=== PATIENT | female | born 1960 | race Caucasian/White ===

== ENCOUNTER 2017-12-16 05:07 | Inpatient (IN) ==
[2017-12-16] MEDS ORDERED: Levofloxacin 750 MG/150 ML 750 MG/150 ML BAG IVPB ONE (05:44)
--- NOTE | 2017-12-16 05:51 | Emergency Department Note ---
Disposition Clinical Impression: Dehydration, Elevated INR Altered mental status, unspecified Qualifiers: Altered mental status type: unspecified Qualified Code(s): R41.82 - Altered mental status, unspecified Disposition: Still a Patient Condition: Fair Referrals: Kerry Farris MD [Primary Care Provider] - Forms: ED Satisfaction Letter Time of Disposition: 06:51 Altered Mental Status HPI - General Chief Complaint: ED Nausea/Vomiting/Diarrhea Stated Complaint: dehydration/uti Time Seen by Provider: 12/16/17 05:30 Source: patient, family Mode of arrival: private vehicle Limitations: no limitations Nursing Notes Reviewed: Yes Vital Signs Reviewed: Yes - History of Present Illness MD complaint: altered mental status Onset (ago): day(s) (Starting getting sick 4 days ago with vomiting but altered mental status is been going on today.) Timing confirmed by: spouse Pain Severity: none Consistency of Symptoms: waxing and waning Context: other (Recently diagnosed with UTI and started on antibiotics yesterday ) Associated symptoms: Reports: chills, loss of appetite, nausea/vomiting. Denies : cough, fever - Related Data Home Medications Medication Instructions Recorded Confirmed Levothyroxine [Synthroid] 100 mcg PO 02/27/15 02/27/15 Lovenox *PHARMACY WT BASED* 02/27/15 02/27/15 Triamterene/HCTZ 37.5/25mg 1 each PO DAILY 02/27/15 02/27/15 [Dyazide] Warfarin perPT [Coumadin perPT] 02/27/15 02/27/15 Previous Rx's Medication Instructions Recorded Cephalexin [Keflex] 500 mg PO BID 7 Days #14 capsule 11/09/17 Allergies Allergy/AdvReac Type Severity Reaction Status Date / Time divalproex sodium AdvReac See Verified 02/27/15 07:30 [From Depakote] Comments phenytoin [From Dilantin] AdvReac Hives Verified 02/27/15 07:30 All systems ED: reviewed and negative except as stated. Constitutional: Reports: chills. Denies: fever ENT ED: Denies: ear pain, throat pain, congestion Cardiovascular: Denies: chest pain, palpitations Respiratory: Denies: cough, dyspnea, wheezes Gastrointestinal: Reports: nausea, vomiting. Denies: abdominal pain, diarrhea Integumentary: Denies: rash Neurological: Reports: confusion Past Medical History - Past Medical History Attestation: Yes The following information was validated with the patient. Source: patient, old records reviewed, obtained from family, nursing notes reviewed Medical history: Reports: dementia, hyperlipidemia, hypertension, renal disease , seizures, thyroid disease, TIA Surgical history: Reports: , other Psychiatric history: Reports: anxiety, depression - Social History Smoking Status: Never smoker Alcohol use: Reports: none Drug use: Reports: none Physical Exam - General Limitations: no limitations General appearance: alert - Head Head exam: atraumatic, normocephalic - Eye Eye exam: Present: normal appearance, PERRL, EOMI. Absent: scleral icterus, conjunctival injection - ENT ENT exam: mucous membranes dry, normal external ear exam - Neck Neck exam: Present: normal inspection, full ROM. Absent: meningismus, lymphadenopathy - Chest Chest inspection: Present: normal inspection, symmetric chest wall rise. Absent : tenderness - Respiratory Respiratory exam: Present: normal lung sounds bilaterally. Absent: respiratory distress, wheezes - Cardiovascular Cardiovascular exam: Present: normal rhythm, tachycardia, normal heart sounds - Abdominal Exam Abdominal exam: Present: soft, tenderness, normal bowel sounds Abdominal tenderness: Present: suprapubic, moderate - Extremities Exam Extremities exam: Present: normal inspection. Absent: pedal edema - Neurological Exam Neurological exam: Present: alert. Absent: motor sensory deficit - Skin Skin exam: Present: warm, dry. Absent: rash Course Course Narrative: Patient has been sick for about 4 days and during the course of the last 24 hours she said confusion. Recent diagnosis of UTI and started antibiotics yesterday. Clinically she is confused and she has very dry mucous membranes. She is tender suprapubically in the midline. This is consistent with UTI. We will check the labs to confirm as well as look for other problems related to this confusion. I am going to go ahead and start antibiotics through the IV. I initiated a sepsis workup. Disposition will be based on diagnostic results and reevaluation. - Reevaluation(s) Reevaluation #1: Labs look okay except for elevated BUN/creatinine consistent with dehydration. The urinalysis was essentially negative for infection. However the patient is vomiting and is dehydrated and has lower abdominal pain so I will send her over for CT scan of the abdomen. I am still waiting for the radiologist results on the head CT although I do not see any gross abnormalities. At this point is the end of my shift. I will be turning the case over to the day physician, Dr. Arechiga, for final disposition after diagnostic studies all come back. Time: 06:50 Vital Signs Temperature 98.8 F 12/16/17 05:08 Pulse Rate 102 12/16/17 05:08 Respiratory Rate 16 12/16/17 05:08 Blood Pressure 113/70 12/16/17 05:08 O2 Sat by Pulse Oximetry 93 12/16/17 05:08 Temperature 98.8 F 12/16/17 05:20 Pulse Rate 103 12/16/17 06:38 Respiratory Rate 16 12/16/17 05:20 Blood Pressure 113/71 12/16/17 06:38 O2 Sat by Pulse Oximetry 96 12/16/17 06:38 Oxygen Delivery Oxygen Delivery Room Air Altered Mental Status - Medical Records Medical records reviewed: Yes I reviewed the patient's medical records. - Lab Data Lab results reviewed: Yes I reviewed the patient's lab results. Result diagrams: 12/16/17 05:27 12/16/17 05:27 Lab Results 12/16/17 12/16/17 12/16/17 Range/Units 05:27 05:27 05:27 WBC 8.4 (4.3-11.1) K/mcL RBC 4.04 (3.82-4.97) M/mcL Hgb 13.0 (11.5-15.4) g/dL Hct 37.9 (35.3-44.9) % MCV 93.8 (83.0-100.0) fL MCH 32.2 (28.0-33.3) pg MCHC 34.3 (31.6-35.5) g/dL RDW 13.7 (11.5-14.5) % Plt Count 63 L (140-400) K/mcL MPV 11.0 (9.4-12.4) fL Seg Neutrophils % 74.0 % Band Neutrophils % 10.0 H (0-4) % Lymphocytes % 14.0 % Metamyelocytes % 2.0 H (0) % Neutrophils # 7.1 (1.6-8.9) K/mcL Lymphocytes # 1.2 (0.6-4.6) K/mcL Platelet Estimate Decreased L (Normal) Immature Plt Fraction 4.9 (1.1-6.1) % PT 68.1 H* (9.4-12.1) Seconds INR 6.0 H* APTT 66.6 H (26.0-36.0) Seconds Sample Site ABG pH (7.32-7.45) pH Units ABG pCO2 (35-45) mmHg ABG pO2 (85-104) mmHg ABG HCO3 (21-27) mEq/L ABG Total CO2 (20-26) mEq/L ABG O2 Saturation (95-98) % ABG Base Excess (-2 to 3) mEq/L Mason Test Inspired O2 (1-15=lpm [id number]=%) Sodium 131 L (136-145) mEq/L Potassium 3.3 L (3.5-5.1) mEq/L Chloride 99 (98-107) mEq/L Carbon Dioxide 18 L (23-29) mEq/L BUN 33 H (6-20) mg/dL Creatinine 1.99 H (0.60-1.20) mg/dL Est GFR ( Amer) 31 L (> 60) Est GFR (Non-Af Amer) 26 L (> 60) BUN/Creatinine Ratio 17 (6-26) Glucose 115 H (70-105) mg/dL Calculated Osmolality 280 (280-300) Lactic Acid (0.5-2.2) mmol/L Calcium 9.2 (8.6-10.3) mg/dL Phosphorus 1.4 L (2.7-4.5) mg/dL Magnesium 2.0 (1.6-2.6) mg/dL Total Bilirubin 0.8 (0.3-1.0) mg/dL Direct Bilirubin 0.4 H (0.0-0.2) mg/dL Indirect Bilirubin 0.4 (0.0-1.2) mg/dL AST 16 (13-39) Units/L ALT 8 (7-52) Units/L Alkaline Phosphatase 111 H (34-104) Units/L Troponin I < 0.03 (< 0.04) ng/mL Serum Total Protein 6.2 L (6.4-8.9) g/dL Albumin 3.2 L (3.5-5.7) g/dL Globulin 3.0 (2.4-3.5) g/dL Albumin/Globulin Ratio 1.1 (1.1-2.2) Urine Color (Yellow) Urine Clarity (Clear) Urine pH (5.0-8.0) pH Units Ur Specific [employer] (1.010-1.025) Urine Protein (Neg-Trace) mg/dL Urine Glucose (UA) (Normal) mg/dL Urine Ketones (Negative) mg/dL Urine Blood (Negative) Urine Nitrite (Negative) Urine Bilirubin (Negative) Urine Urobilinogen (Normal) mg/dL Ur Leukocyte Esterase (Negative) Urine Microscopic RBC (0-3) per hpf Urine Microscopic WBC (0-3) per hpf Ur Squamous Epith Cells (None-Few) per lpf Urine Bacteria (None-Few) per hpf Hyaline Casts (None-Few) per lpf Urine Yeast (None Seen) per hpf Ur Culture Indicated? (NO) 12/16/17 12/16/17 12/16/17 Range/Units 05:27 05:55 06:15 WBC (4.3-11.1) K/mcL RBC (3.82-4.97) M/mcL Hgb (11.5-15.4) g/dL Hct (35.3-44.9) % MCV (83.0-100.0) fL MCH (28.0-33.3) pg MCHC (31.6-35.5) g/dL RDW (11.5-14.5) % Plt Count (140-400) K/mcL MPV (9.4-12.4) fL Seg Neutrophils % % Band Neutrophils % (0-4) % Lymphocytes % % Metamyelocytes % (0) % Neutrophils # (1.6-8.9) K/mcL Lymphocytes # (0.6-4.6) K/mcL Platelet Estimate (Normal) Immature Plt Fraction (1.1-6.1) % PT (9.4-12.1) Seconds INR APTT (26.0-36.0) Seconds Sample Site R Radial ABG pH 7.47 H (7.32-7.45) pH Units ABG pCO2 24 L (35-45) mmHg ABG pO2 81 L (85-104) mmHg ABG HCO3 18 L (21-27) mEq/L ABG Total CO2 18 L (20-26) mEq/L ABG O2 Saturation 97 (95-98) % ABG Base Excess -5 L (-2 to 3) mEq/L Mason Test Positive Inspired O2 21.0 (1-15=lpm [id number]=%) Sodium (136-145) mEq/L Potassium (3.5-5.1) mEq/L Chloride (98-107) mEq/L Carbon Dioxide (23-29) mEq/L BUN (6-20) mg/dL Creatinine (0.60-1.20) mg/dL Est GFR ( Amer) (> 60) Est GFR (Non-Af Amer) (> 60) BUN/Creatinine Ratio (6-26) Glucose (70-105) mg/dL Calculated Osmolality (280-300) Lactic Acid 1.4 (0.5-2.2) mmol/L Calcium (8.6-10.3) mg/dL Phosphorus (2.7-4.5) mg/dL Magnesium (1.6-2.6) mg/dL Total Bilirubin (0.3-1.0) mg/dL Direct Bilirubin (0.0-0.2) mg/dL Indirect Bilirubin (0.0-1.2) mg/dL AST (13-39) Units/L ALT (7-52) Units/L Alkaline Phosphatase (34-104) Units/L Troponin I (< 0.04) ng/mL Serum Total Protein (6.4-8.9) g/dL Albumin (3.5-5.7) g/dL Globulin (2.4-3.5) g/dL Albumin/Globulin Ratio (1.1-2.2) Urine Color Yellow (Yellow) Urine Clarity Cloudy A (Clear) Urine pH 5.5 (5.0-8.0) pH Units Ur Specific [employer] 1.017 (1.010-1.025) Urine Protein Trace (Neg-Trace) mg/dL Urine Glucose (UA) Normal (Normal) mg/dL Urine Ketones Negative (Negative) mg/dL Urine Blood Small H (Negative) Urine Nitrite Negative (Negative) Urine Bilirubin Negative (Negative) Urine Urobilinogen Normal (Normal) mg/dL Ur Leukocyte Esterase Small H (Negative) Urine Microscopic RBC 0-3 (0-3) per hpf Urine Microscopic WBC 3-5 H (0-3) per hpf Ur Squamous Epith Cells Many H (None-Few) per lpf Urine Bacteria Few (None-Few) per hpf Hyaline Casts None Seen (None-Few) per lpf Urine Yeast Many H (None Seen) per hpf Ur Culture Indicated? NO. A (NO) - Radiology Data Radiology results reviewed: Yes I reviewed the patient's radiology results. - EKG Data EKG attestation: Yes I reviewed and interpreted this EKG. EKG results narrative: Twelve-lead EKG performed at 6 AM shows sinus rhythm at a rate of 98. Left axis deviation. Reasonable R wave progression across precordium. No acute ischemic changes. Intervals are within normal limits. TPA Checklist - LKW: 3-4.5 hrs Add. Warnings/Precautions Patient/family understanding: The patient/family members have been counseled and understood the risk, benefit , and alternatives of treatment.
[2017-12-16 05:56] LABS: Mean Corpuscular Volume 93.8 fL (83.0-100.0)
[2017-12-16 05:58] LABS: Hematocrit 37.9 % (35.3-44.9); Immature Platelets 4.9 % (1.1-6.1); Mean Corpuscular HGB Conc 34.3 g/dL (31.6-35.5); Mean Corpuscular Hemoglobin 32.2 pg (28.0-33.3); Platelet Count 63 K/mcL (140-400); Red Blood Count 4.04 M/mcL (3.82-4.97); Red Cell Distribution Width 13.7 % (11.5-14.5)
[2017-12-16 06:00] LABS: ABG Base Excess -5 mEq/L (-2 to 3); ABG HCO3 18 mEq/L (21-27); ABG Oxygen Saturation 97 % (95-98); ABG PCO2 24 mmHg (35-45); ABG PH 7.47 pH Units (7.32-7.45); ABG PO2 81 mmHg (85-104); ABG TCO2 18 mEq/L (20-26)
[2017-12-16 06:06] LABS: Activated Partial Thrombo Time 66.6 Seconds (26.0-36.0)
[2017-12-16 06:08] LABS: Alanine Aminotransferase 8 Units/L (7-52); Albumin 3.2 g/dL (3.5-5.7); Albumin/Globulin Ratio 1.1 (1.1-2.2); Alkaline Phosphatase 111 Units/L (34-104); Aspartate Amino Transferase 16 Units/L (13-39); BUN/Creatinine Ratio 17 (6-26); Bilirubin,Direct 0.4 mg/dL (0.0-0.2); Bilirubin,Indirect 0.4 mg/dL (0.0-1.2); Bilirubin,Total 0.8 mg/dL (0.3-1.0); Blood Urea Nitrogen 33 mg/dL (6-20); Calcium 9.2 mg/dL (8.6-10.3); Carbon Dioxide 18 mEq/L (23-29); Chloride 99 mEq/L (98-107); Glucose 115 mg/dL (70-105); Osmolality,Calculated 280 (280-300); Phosphorous 1.4 mg/dL (2.7-4.5); Potassium 3.3 mEq/L (3.5-5.1); Sodium 131 mEq/L (136-145); Total Protein 6.2 g/dL (6.4-8.9); Troponin I < 0.03 ng/mL (< 0.04); eGFR For African Americans 31 (> 60); eGFR For Non-African Americans 26 (> 60)
[2017-12-16 06:09] LABS: Prothrombin Time 68.1 Seconds (9.4-12.1)
[2017-12-16] MEDS: 0.9 % Sodium Chloride 1,000 ML IVC SCH ×2 (06:11→08:46)
[2017-12-16 06:22] LABS: Lymphocytes # 1.2 K/mcL (0.6-4.6); Neutrophils # 7.1 K/mcL (1.6-8.9); Platelet Estimate Decreased (Normal)
[2017-12-16 06:29] LABS: Bilirubin,Urine Negative (Negative); Blood,Urine Small (Negative); Clarity,Urine Cloudy (Clear); Color,Urine Yellow (Yellow); Glucose,Urine (UA) Normal (Normal); Ketones,Urine Negative (Negative); Leukocyte Esterase,Urine Small (Negative); Nitrite,Urine Negative (Negative); PH,Urine 5.5 pH Units (5.0-8.0); Protein,Urine Trace mg/dL (Neg-Trace); Specific Gravity,Urine 1.017 (1.010-1.025); Urobilinogen,Urine Normal (Normal)
[2017-12-16 06:31] LABS: Hyaline Casts,Urine None Seen per lpf (None-Few); RBC,Urine 0-3 per hpf (0-3); Squamous Epithelial Cell,Urine Many per lpf (None-Few)
[2017-12-16 06:47] LABS: Bacteria,Urine Few per hpf (None-Few); Yeast,Urine Many per hpf (None Seen)
--- NOTE | 2017-12-16 07:14 | Emergency Department Note ---
Disposition Clinical Impression: Dehydration, Elevated INR, Thrombocytopenia, Acute kidney injury, Supratherapeutic INR, Left ureteral calculus Altered mental status, unspecified Qualifiers: Altered mental status type: unspecified Qualified Code(s): R41.82 - Altered mental status, unspecified Disposition: Admitted As Inpatient Condition: Fair Time of Disposition: 08:26 General Adult HPI - General Chief complaint: ED Nausea/Vomiting/Diarrhea Stated complaint: dehydration/uti Time Seen by Provider: 12/16/17 05:30 Source: patient, family Mode of arrival: private vehicle Limitations: altered mental status Nursing Notes Reviewed: Yes Vital Signs Reviewed: Yes - History of Present Illness HPI Narrative: Patient was signed out by nighttime physician Dr. Birmingham pending CT abdomen and pelvis and final disposition. Please see his note for further details. Pain Scale: 7 - Related Data Home Medications Medication Instructions Recorded Confirmed Atorvastatin Calcium [Lipitor] 20 mg PO HS 12/16/17 12/16/17 BuPROPion SR (12 HR) [Wellbutrin 150 mg PO 1200 12/16/17 12/16/17 SR] BuPROPion SR (12 HR) [Wellbutrin 300 mg PO QAM 12/16/17 12/16/17 SR] Calcium Carbonate [Calcium] 500 mg PO DAILY 12/16/17 12/16/17 Ciprofloxacin HCl [Cipro] 500 mg PO BID 12/16/17 12/16/17 FLUoxetine HCl [Fluoxetine HCl] 40 mg PO DAILY 12/16/17 12/16/17 Levothyroxine [Synthroid] 100 mcg PO 0630 12/16/17 12/16/17 Ondansetron ODT [Zofran ODT] 4 mg PO DAILY PRN 12/16/17 12/16/17 Potassium Chloride 20 meq PO BID 12/16/17 12/16/17 Quetiapine Fumarate [Seroquel] 50 mg PO HS 12/16/17 12/16/17 Spironolactone [Aldactone] 50 mg PO BID 12/16/17 12/16/17 Topiramate [Topamax] 50 mg PO BID 12/16/17 12/16/17 Trazodone HCl 300 mg PO HS 12/16/17 12/16/17 Warfarin Sodium [Warfarin Sodium] 2.5 mg PO DAILY 12/16/17 12/16/17 raNITIdine HCl [Ranitidine HCl] 300 mg PO DAILY 12/16/17 12/16/17 Allergies Allergy/AdvReac Type Severity Reaction Status Date / Time divalproex sodium AdvReac See Verified 12/16/17 07:46 [From Depakote] Comments phenytoin [From Dilantin] AdvReac Hives Verified 12/16/17 07:46 Constitutional: Reports: chills. Denies: fever ENT ED: Denies: ear pain, throat pain, congestion Cardiovascular: Denies: chest pain, palpitations Respiratory: Denies: cough, dyspnea, wheezes Gastrointestinal: Reports: nausea, vomiting. Denies: abdominal pain, diarrhea Integumentary: Denies: rash Neurological: Reports: confusion Past Medical History - Past Medical History Medical history: Reports: dementia, hyperlipidemia, hypertension, renal disease , seizures, thyroid disease, TIA Surgical history: Reports: , other Psychiatric history: Reports: anxiety, depression - Social History Smoking Status: Never smoker Alcohol use: Reports: none Drug use: Reports: none Physical Exam - General Limitations: no limitations General appearance: alert Course Course Narrative: Patient was signed out by nighttime physician Dr. Birmingham pending CT abdomen and pelvis and final disposition. Please see his note for further details. Andree is a 57-year-old female history of antiphospholipid, dementia, prior TIA , and CKD stage 3 follows with Isa who presents emergency department with concern for dehydration urinary tract infection and confusion. The assists with the history. Reports over the past days patient has been nauseated and sick. She is have similar presentation a month ago diagnosed with urinary tract infection. She has been unable to keep her Coumadin or take any other medication due to her nausea vomiting. No fevers. Patient saw her primary care physician Dr. Dill 2 days ago on Thursday and was diagnosed with urinary tract infection and placed on Cipro. Last night roughly 2100 reports patient had difficulty with speech and appeared confused. She has only taken 2 doses of her ciprofloxacin. She has not taken this medication before. On my exam patient follow simple commands and initially answered some questions but currently is shaking head and no. She appears to have a tick and continues a purse her lips which he has been states his new. On neurologic exam she has good strength in all for extremities. Appears neurologically intact. Supple neck without nuchal rigidity or meningeal signs. Lungs are clear bilaterally. Heart is regular rate and rhythm. Her abdomen is soft but appears mildly tender. She does wince on exam. Review of her labs shows no leukocytosis. Hemoglobin stable. Urinalysis does not appear consistent with infection at this time. Patient was given a dose of IV Levaquin here. Her creatinine is significantly elevated 1.99 well above her baseline. BUN is elevated as well as electrolyte abnormalities consistent with dehydration. She is currently getting IV fluid hydration. Her INR is also elevated 6.0. Lactate is 1.4. She remains hemodynamically stable here but slightly tachycardic 100. Patient and deny any bloody stool or blacked tarry stool. Currently CT of the abdomen and pelvis is pending. Chest x-ray and CT of the head is unremarkable. Patient will likely require admission for altered mental status. Will include a urine drug screen. - Reevaluation(s) Reevaluation #1: Heart rate continues to improve with IV fluid hydration. CT of the abdomen and pelvis shows left hydronephrosis with 5 mm left distal ureteral stone. This could likely explain her acute kidney injury likely post obstructive. Given her acute on chronic thrombocytopenia she was evaluate for any other abnormalities such as HUS/ITP/TTP, no petechieal lesions seen on buttocks, trunk , or extremities. Patient will be admitted for multiple diagnoses including altered mental status, acute kidney injury, dehydration, kidney stone, left hydronephrosis, acute thrombocytopenia and supratherapeutic INR. Time: 08:28 - Consultations Consultation #1: Spoke with on-call neurologist Jose Antonio Main this is likely not TIA or CVA without isolated difficulty with speech. He does recommend MRI. He is aware the patient will be admitted and MRI can be performed as an inpatient. She is currently already anticoagulated. No further interventions Time: 07:36 Consultation #2: Spoke with on-call hospitalist eduard Naqvi to admit for supra INR, dehydration, NILSA, left kidney stone, AMS. No further orders at this time. Recommend MRI as inpatient Time: 08:26 Consultation #3: Consulted urology on-call Dr. 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 Patient continues to have some discomfort mostly on the left flank and abdomen likely from the stone. Will be consulted on the floor. Time: 08:57 Vital Signs Temperature 98.8 F 12/16/17 05:08 Pulse Rate 102 12/16/17 05:08 Respiratory Rate 16 12/16/17 05:08 Blood Pressure 113/70 12/16/17 05:08 O2 Sat by Pulse Oximetry 93 12/16/17 05:08 Temperature 98.8 F 12/16/17 05:20 Pulse Rate 92 12/16/17 08:42 Respiratory Rate 18 12/16/17 08:42 Blood Pressure 118/81 12/16/17 08:42 O2 Sat by Pulse Oximetry 99 12/16/17 08:42 Oxygen Delivery Oxygen Delivery Room Air Medical Decision Making - MDM Narrative Medical decision making narrative: Patient was discussed with my attending physician who agrees with ED management and final disposition. They independently evaluated the patient. Please refer to their attestation to this encounter for additional information. This note was generated by [employer] voice recognition software and as a result grammatical or spelling errors may occur using this program. - Medical Records Medical records reviewed: Yes I reviewed the patient's medical records. - Lab Data Lab results reviewed: Yes I reviewed the patient's lab results. Result diagrams: 12/16/17 05:27 12/16/17 05:27 Lab Results 12/16/17 12/16/17 12/16/17 Range/Units 05:27 05:27 05:27 WBC 8.4 (4.3-11.1) K/mcL RBC 4.04 (3.82-4.97) M/mcL Hgb 13.0 (11.5-15.4) g/dL Hct 37.9 (35.3-44.9) % MCV 93.8 (83.0-100.0) fL MCH 32.2 (28.0-33.3) pg MCHC 34.3 (31.6-35.5) g/dL RDW 13.7 (11.5-14.5) % Plt Count 63 L (140-400) K/mcL MPV 11.0 (9.4-12.4) fL Seg Neutrophils % 74.0 % Band Neutrophils % 10.0 H (0-4) % Lymphocytes % 14.0 % Metamyelocytes % 2.0 H (0) % Neutrophils # 7.1 (1.6-8.9) K/mcL Lymphocytes # 1.2 (0.6-4.6) K/mcL Platelet Estimate Decreased L (Normal) Immature Plt Fraction 4.9 (1.1-6.1) % PT 68.1 H* (9.4-12.1) Seconds INR 6.0 H* APTT 66.6 H (26.0-36.0) Seconds Sample Site ABG pH (7.32-7.45) pH Units ABG pCO2 (35-45) mmHg ABG pO2 (85-104) mmHg ABG HCO3 (21-27) mEq/L ABG Total CO2 (20-26) mEq/L ABG O2 Saturation (95-98) % ABG Base Excess (-2 to 3) mEq/L Mason Test Inspired O2 (1-15=lpm [id number]=%) Sodium 131 L (136-145) mEq/L Potassium 3.3 L (3.5-5.1) mEq/L Chloride 99 (98-107) mEq/L Carbon Dioxide 18 L (23-29) mEq/L BUN 33 H (6-20) mg/dL Creatinine 1.99 H (0.60-1.20) mg/dL Est GFR ( Amer) 31 L (> 60) Est GFR (Non-Af Amer) 26 L (> 60) BUN/Creatinine Ratio 17 (6-26) Glucose 115 H (70-105) mg/dL Calculated Osmolality 280 (280-300) Lactic Acid (0.5-2.2) mmol/L Calcium 9.2 (8.6-10.3) mg/dL Phosphorus 1.4 L (2.7-4.5) mg/dL Magnesium 2.0 (1.6-2.6) mg/dL Total Bilirubin 0.8 (0.3-1.0) mg/dL Direct Bilirubin 0.4 H (0.0-0.2) mg/dL Indirect Bilirubin 0.4 (0.0-1.2) mg/dL AST 16 (13-39) Units/L ALT 8 (7-52) Units/L Alkaline Phosphatase 111 H (34-104) Units/L Troponin I < 0.03 (< 0.04) ng/mL Serum Total Protein 6.2 L (6.4-8.9) g/dL Albumin 3.2 L (3.5-5.7) g/dL Globulin 3.0 (2.4-3.5) g/dL Albumin/Globulin Ratio 1.1 (1.1-2.2) Urine Color (Yellow) Urine Clarity (Clear) Urine pH (5.0-8.0) pH Units Ur Specific [place] (1.010-1.025) Urine Protein (Neg-Trace) mg/dL Urine Glucose (UA) (Normal) mg/dL Urine Ketones (Negative) mg/dL Urine Blood (Negative) Urine Nitrite (Negative) Urine Bilirubin (Negative) Urine Urobilinogen (Normal) mg/dL Ur Leukocyte Esterase (Negative) Urine Microscopic RBC (0-3) per hpf Urine Microscopic WBC (0-3) per hpf Ur Squamous Epith Cells (None-Few) per lpf Urine Bacteria (None-Few) per hpf Hyaline Casts (None-Few) per lpf Urine Yeast (None Seen) per hpf Ur Culture Indicated? (NO) 12/16/17 12/16/17 12/16/17 Range/Units 05:27 05:55 06:15 WBC (4.3-11.1) K/mcL RBC (3.82-4.97) M/mcL Hgb (11.5-15.4) g/dL Hct (35.3-44.9) % MCV (83.0-100.0) fL MCH (28.0-33.3) pg MCHC (31.6-35.5) g/dL RDW (11.5-14.5) % Plt Count (140-400) K/mcL MPV (9.4-12.4) fL Seg Neutrophils % % Band Neutrophils % (0-4) % Lymphocytes % % Metamyelocytes % (0) % Neutrophils # (1.6-8.9) K/mcL Lymphocytes # (0.6-4.6) K/mcL Platelet Estimate (Normal) Immature Plt Fraction (1.1-6.1) % PT (9.4-12.1) Seconds INR APTT (26.0-36.0) Seconds Sample Site R Radial ABG pH 7.47 H (7.32-7.45) pH Units ABG pCO2 24 L (35-45) mmHg ABG pO2 81 L (85-104) mmHg ABG HCO3 18 L (21-27) mEq/L ABG Total CO2 18 L (20-26) mEq/L ABG O2 Saturation 97 (95-98) % ABG Base Excess -5 L (-2 to 3) mEq/L Mason Test Positive Inspired O2 21.0 (1-15=lpm [id number]=%) Sodium (136-145) mEq/L Potassium (3.5-5.1) mEq/L Chloride (98-107) mEq/L Carbon Dioxide (23-29) mEq/L BUN (6-20) mg/dL Creatinine (0.60-1.20) mg/dL Est GFR ( Amer) (> 60) Est GFR (Non-Af Amer) (> 60) BUN/Creatinine Ratio (6-26) Glucose (70-105) mg/dL Calculated Osmolality (280-300) Lactic Acid 1.4 (0.5-2.2) mmol/L Calcium (8.6-10.3) mg/dL Phosphorus (2.7-4.5) mg/dL Magnesium (1.6-2.6) mg/dL Total Bilirubin (0.3-1.0) mg/dL Direct Bilirubin (0.0-0.2) mg/dL Indirect Bilirubin (0.0-1.2) mg/dL AST (13-39) Units/L ALT (7-52) Units/L Alkaline Phosphatase (34-104) Units/L Troponin I (< 0.04) ng/mL Serum Total Protein (6.4-8.9) g/dL Albumin (3.5-5.7) g/dL Globulin (2.4-3.5) g/dL Albumin/Globulin Ratio (1.1-2.2) Urine Color Yellow (Yellow) Urine Clarity Cloudy A (Clear) Urine pH 5.5 (5.0-8.0) pH Units Ur Specific [place] 1.017 (1.010-1.025) Urine Protein Trace (Neg-Trace) mg/dL Urine Glucose (UA) Normal (Normal) mg/dL Urine Ketones Negative (Negative) mg/dL Urine Blood Small H (Negative) Urine Nitrite Negative (Negative) Urine Bilirubin Negative (Negative) Urine Urobilinogen Normal (Normal) mg/dL Ur Leukocyte Esterase Small H (Negative) Urine Microscopic RBC 0-3 (0-3) per hpf Urine Microscopic WBC 3-5 H (0-3) per hpf Ur Squamous Epith Cells Many H (None-Few) per lpf Urine Bacteria Few (None-Few) per hpf Hyaline Casts None Seen (None-Few) per lpf Urine Yeast Many H (None Seen) per hpf Ur Culture Indicated? NO. A (NO) - Radiology Data Radiology results reviewed: Yes I reviewed the patient's radiology results. Chest X-Ray 12/16/17 05:45 IMPRESSION: Right basilar atelectasis or pneumonia. D/ / Kirit Nieves MD / Kirit Nieves MD Interpreting Provider: Kirit Nieves MD Head CT 12/16/17 06:09 IMPRESSION: Mild small vessel chronic ischemic changes without acute hemorrhage or definite evidence for acute ischemia. D/ / Kirit Nieves MD / Kirit Nieves MD Interpreting Provider: Kirit Nieves MD Abdomen/Pelvis CT 12/16/17 06:48 IMPRESSION: 1. Left hydronephrosis secondary to a 5 mm distal ureteral calculus. There are also a few punctate calculi in the more proximal left ureter. 2. Bilateral urolithiasis. 3. Biliary sludge within the gallbladder. 4. Noncalcified left lower lobe pulmonary nodule measuring 2 mm. D/ / Kade Holman MD / Kade Holman MD Interpreting Provider: Kade Holman MD - EKG Data EKG #1 EKG attestation: Yes I reviewed and interpreted this EKG. EKG results narrative: EKG performed 600 normal sinus rhythm 98 beats per minute, poor R wave progression, no ST elevation or depression, no T-wave version. Intervals appear within normal limits. Compared to prior EKG performed 04/15/2006 shows similar consistent findings. No acute ischemic changes. Attestation Statement - Attestation Attestation: I, Raleigh Arechiga DO, examined this patient [id number] and my medical decision-making was reviewed with (Carlton Harris DO , Resident Physician. I agree with the documented findings, disposition and treatment plan as described except to the extent set forth below. Please see my progress notes for details.
--- NOTE | 2017-12-16 08:21 | Emergency Department Note ---
Disposition Clinical Impression: Dehydration, Elevated INR, Thrombocytopenia, Acute kidney injury, Supratherapeutic INR, Left ureteral calculus Altered mental status, unspecified Qualifiers: Altered mental status type: unspecified Qualified Code(s): R41.82 - Altered mental status, unspecified Disposition: Admitted As Inpatient Condition: Fair Referrals: Kerry Farris MD [Primary Care Provider] - Forms: ED Satisfaction Letter Time of Disposition: 08:33 General Adult HPI - General Chief complaint: ED Nausea/Vomiting/Diarrhea Stated complaint: dehydration/uti Time Seen by Provider: 12/16/17 05:30 Source: patient, family Mode of arrival: private vehicle Limitations: no limitations - History of Present Illness Pain Scale: 7 - Related Data Home Medications Medication Instructions Recorded Confirmed Atorvastatin Calcium [Lipitor] 20 mg PO HS 12/16/17 12/16/17 BuPROPion SR (12 HR) [Wellbutrin 150 mg PO 1200 12/16/17 12/16/17 SR] BuPROPion SR (12 HR) [Wellbutrin 300 mg PO QAM 12/16/17 12/16/17 SR] Calcium Carbonate [Calcium] 500 mg PO DAILY 12/16/17 12/16/17 Ciprofloxacin HCl [Cipro] 500 mg PO BID 12/16/17 12/16/17 FLUoxetine HCl [Fluoxetine HCl] 40 mg PO DAILY 12/16/17 12/16/17 Levothyroxine [Synthroid] 100 mcg PO 0630 12/16/17 12/16/17 Ondansetron ODT [Zofran ODT] 4 mg PO DAILY PRN 12/16/17 12/16/17 Potassium Chloride 20 meq PO BID 12/16/17 12/16/17 Quetiapine Fumarate [Seroquel] 50 mg PO HS 12/16/17 12/16/17 Spironolactone [Aldactone] 50 mg PO BID 12/16/17 12/16/17 Topiramate [Topamax] 50 mg PO BID 12/16/17 12/16/17 Trazodone HCl 300 mg PO HS 12/16/17 12/16/17 Warfarin Sodium [Warfarin Sodium] 2.5 mg PO DAILY 12/16/17 12/16/17 raNITIdine HCl [Ranitidine HCl] 300 mg PO DAILY 12/16/17 12/16/17 Allergies Allergy/AdvReac Type Severity Reaction Status Date / Time divalproex sodium AdvReac See Verified 12/16/17 07:46 [From Depakote] Comments phenytoin [From Dilantin] AdvReac Hives Verified 12/16/17 07:46 Constitutional: Reports: chills. Denies: fever ENT ED: Denies: ear pain, throat pain, congestion Cardiovascular: Denies: chest pain, palpitations Respiratory: Denies: cough, dyspnea, wheezes Gastrointestinal: Reports: nausea, vomiting. Denies: abdominal pain, diarrhea Integumentary: Denies: rash Neurological: Reports: confusion Past Medical History - Past Medical History Medical history: Reports: dementia, hyperlipidemia, hypertension, renal disease , seizures, thyroid disease, TIA Surgical history: Reports: , other Psychiatric history: Reports: anxiety, depression - Social History Smoking Status: Never smoker Alcohol use: Reports: none Drug use: Reports: none Physical Exam - General Limitations: no limitations General appearance: alert Course Vital Signs Temperature 98.8 F 12/16/17 05:08 Pulse Rate 102 12/16/17 05:08 Respiratory Rate 16 12/16/17 05:08 Blood Pressure 113/70 12/16/17 05:08 O2 Sat by Pulse Oximetry 93 12/16/17 05:08 Temperature 98.8 F 12/16/17 05:20 Pulse Rate 96 12/16/17 07:52 Respiratory Rate 16 12/16/17 07:52 Blood Pressure 116/76 12/16/17 07:52 O2 Sat by Pulse Oximetry 96 12/16/17 07:52 Oxygen Delivery Oxygen Delivery Room Air Medical Decision Making - Lab Data Result diagrams: 12/16/17 05:27 12/16/17 05:27 Lab Results 12/16/17 12/16/17 12/16/17 Range/Units 05:27 05:27 05:27 WBC 8.4 (4.3-11.1) K/mcL RBC 4.04 (3.82-4.97) M/mcL Hgb 13.0 (11.5-15.4) g/dL Hct 37.9 (35.3-44.9) % MCV 93.8 (83.0-100.0) fL MCH 32.2 (28.0-33.3) pg MCHC 34.3 (31.6-35.5) g/dL RDW 13.7 (11.5-14.5) % Plt Count 63 L (140-400) K/mcL MPV 11.0 (9.4-12.4) fL Seg Neutrophils % 74.0 % Band Neutrophils % 10.0 H (0-4) % Lymphocytes % 14.0 % Metamyelocytes % 2.0 H (0) % Neutrophils # 7.1 (1.6-8.9) K/mcL Lymphocytes # 1.2 (0.6-4.6) K/mcL Platelet Estimate Decreased L (Normal) Immature Plt Fraction 4.9 (1.1-6.1) % PT 68.1 H* (9.4-12.1) Seconds INR 6.0 H* APTT 66.6 H (26.0-36.0) Seconds Sample Site ABG pH (7.32-7.45) pH Units ABG pCO2 (35-45) mmHg ABG pO2 (85-104) mmHg ABG HCO3 (21-27) mEq/L ABG Total CO2 (20-26) mEq/L ABG O2 Saturation (95-98) % ABG Base Excess (-2 to 3) mEq/L Mason Test Inspired O2 (1-15=lpm [id number]=%) Sodium 131 L (136-145) mEq/L Potassium 3.3 L (3.5-5.1) mEq/L Chloride 99 (98-107) mEq/L Carbon Dioxide 18 L (23-29) mEq/L BUN 33 H (6-20) mg/dL Creatinine 1.99 H (0.60-1.20) mg/dL Est GFR ( Amer) 31 L (> 60) Est GFR (Non-Af Amer) 26 L (> 60) BUN/Creatinine Ratio 17 (6-26) Glucose 115 H (70-105) mg/dL Calculated Osmolality 280 (280-300) Lactic Acid (0.5-2.2) mmol/L Calcium 9.2 (8.6-10.3) mg/dL Phosphorus 1.4 L (2.7-4.5) mg/dL Magnesium 2.0 (1.6-2.6) mg/dL Total Bilirubin 0.8 (0.3-1.0) mg/dL Direct Bilirubin 0.4 H (0.0-0.2) mg/dL Indirect Bilirubin 0.4 (0.0-1.2) mg/dL AST 16 (13-39) Units/L ALT 8 (7-52) Units/L Alkaline Phosphatase 111 H (34-104) Units/L Troponin I < 0.03 (< 0.04) ng/mL Serum Total Protein 6.2 L (6.4-8.9) g/dL Albumin 3.2 L (3.5-5.7) g/dL Globulin 3.0 (2.4-3.5) g/dL Albumin/Globulin Ratio 1.1 (1.1-2.2) Urine Color (Yellow) Urine Clarity (Clear) Urine pH (5.0-8.0) pH Units Ur Specific [place] (1.010-1.025) Urine Protein (Neg-Trace) mg/dL Urine Glucose (UA) (Normal) mg/dL Urine Ketones (Negative) mg/dL Urine Blood (Negative) Urine Nitrite (Negative) Urine Bilirubin (Negative) Urine Urobilinogen (Normal) mg/dL Ur Leukocyte Esterase (Negative) Urine Microscopic RBC (0-3) per hpf Urine Microscopic WBC (0-3) per hpf Ur Squamous Epith Cells (None-Few) per lpf Urine Bacteria (None-Few) per hpf Hyaline Casts (None-Few) per lpf Urine Yeast (None Seen) per hpf Ur Culture Indicated? (NO) 12/16/17 12/16/17 12/16/17 Range/Units 05:27 05:55 06:15 WBC (4.3-11.1) K/mcL RBC (3.82-4.97) M/mcL Hgb (11.5-15.4) g/dL Hct (35.3-44.9) % MCV (83.0-100.0) fL MCH (28.0-33.3) pg MCHC (31.6-35.5) g/dL RDW (11.5-14.5) % Plt Count (140-400) K/mcL MPV (9.4-12.4) fL Seg Neutrophils % % Band Neutrophils % (0-4) % Lymphocytes % % Metamyelocytes % (0) % Neutrophils # (1.6-8.9) K/mcL Lymphocytes # (0.6-4.6) K/mcL Platelet Estimate (Normal) Immature Plt Fraction (1.1-6.1) % PT (9.4-12.1) Seconds INR APTT (26.0-36.0) Seconds Sample Site R Radial ABG pH 7.47 H (7.32-7.45) pH Units ABG pCO2 24 L (35-45) mmHg ABG pO2 81 L (85-104) mmHg ABG HCO3 18 L (21-27) mEq/L ABG Total CO2 18 L (20-26) mEq/L ABG O2 Saturation 97 (95-98) % ABG Base Excess -5 L (-2 to 3) mEq/L Mason Test Positive Inspired O2 21.0 (1-15=lpm [id number]=%) Sodium (136-145) mEq/L Potassium (3.5-5.1) mEq/L Chloride (98-107) mEq/L Carbon Dioxide (23-29) mEq/L BUN (6-20) mg/dL Creatinine (0.60-1.20) mg/dL Est GFR ( Amer) (> 60) Est GFR (Non-Af Amer) (> 60) BUN/Creatinine Ratio (6-26) Glucose (70-105) mg/dL Calculated Osmolality (280-300) Lactic Acid 1.4 (0.5-2.2) mmol/L Calcium (8.6-10.3) mg/dL Phosphorus (2.7-4.5) mg/dL Magnesium (1.6-2.6) mg/dL Total Bilirubin (0.3-1.0) mg/dL Direct Bilirubin (0.0-0.2) mg/dL Indirect Bilirubin (0.0-1.2) mg/dL AST (13-39) Units/L ALT (7-52) Units/L Alkaline Phosphatase (34-104) Units/L Troponin I (< 0.04) ng/mL Serum Total Protein (6.4-8.9) g/dL Albumin (3.5-5.7) g/dL Globulin (2.4-3.5) g/dL Albumin/Globulin Ratio (1.1-2.2) Urine Color Yellow (Yellow) Urine Clarity Cloudy A (Clear) Urine pH 5.5 (5.0-8.0) pH Units Ur Specific [place] 1.017 (1.010-1.025) Urine Protein Trace (Neg-Trace) mg/dL Urine Glucose (UA) Normal (Normal) mg/dL Urine Ketones Negative (Negative) mg/dL Urine Blood Small H (Negative) Urine Nitrite Negative (Negative) Urine Bilirubin Negative (Negative) Urine Urobilinogen Normal (Normal) mg/dL Ur Leukocyte Esterase Small H (Negative) Urine Microscopic RBC 0-3 (0-3) per hpf Urine Microscopic WBC 3-5 H (0-3) per hpf Ur Squamous Epith Cells Many H (None-Few) per lpf Urine Bacteria Few (None-Few) per hpf Hyaline Casts None Seen (None-Few) per lpf Urine Yeast Many H (None Seen) per hpf Ur Culture Indicated? NO. A (NO) Attestation Statement - Attestation Attestation: I, Raleigh Arechiga DO, examined this patient [id number] and my medical decision-making was reviewed with Carlton Harris DO , Resident Physician. I agree with the documented findings, disposition and treatment plan as described except to the extent set forth below. Please see my progress notes for details. 57-year-old female seen and evaluated with the resident physician. The patient was signed out by the overnight physician Dr. gayle [place]. We reviewed the patient's presentation symptoms medical history medical intervention that were discussed and reviewed overnight. The patient presented with onset of some intermittent confusion and difficulty with getting out words that started approximately 9:51 PM last night. Patient is of a history of TIA. She does have antiphospholipid deficiency and is chronically on Coumadin. She was seen and evaluated and started on Cipro for urinary tract infection 2 days ago. Patient only taken 1 dose of that medication at this time. She presents here today on reevaluation a week following commands slightly confused but does not show any focal neurologic deficits. She has some difficulty with articulating words but is able to answer questions appropriately. I asked her who this person was standing at the bedside and she was able to give a specific name that was appropriate and did not have any visible slurred speech. Patient also had inability to hold her arms and legs up regarding without any complication no ataxia no drift. Her pupils are equal round reactive extraocular muscles are intact her head is atraumatic. Oropharynx is patent trachea is midline lungs are clear to auscultation her heart is regular. Abdomen is soft nontender nondistended with no guarding no rigidity and no peritoneal symptoms which does have tenderness suprapubically. CT imaging of the abdomen is still pending at this point. CT of the head was unremarkable for acute bleed. Her INR was significantly elevated at 6.0 today's could be secondary to the Coumadin versus ancient having Coumadin toxicity at this time. Patient will be observed in the emergency room to the remainder the laboratory workup is complete admission processes established. The neurologist was contacted and the recommendations were for the patient to have admission completed an MRI is established in the inpatient setting but does not appear to be a strokelike presentation this time. Patient does have the ability to answer questions and follow commands despite there being some aspect of some intermittent confusion. We will continue to monitor here until treatment course and evaluation are established. No other medical intervention is required onset of treatment for presenting symptoms. Urine does not show any signs of infection remainder of her labs and watch her lites are stable outside of a slightly elevated creatinine on her normal CTD. Patient does not have any nuchal rigidity she has full range of motion of the neck she has no signs of meningitis or meningeal -like symptoms at this point. She has no cervical lymphadenopathy. Patient is otherwise clinically stable. See detailed documentation of the physical exam, medical intervention, medical decision-making and disposition in the resident physician's note. No critical care applied to the patient's treatment course at this time. 0830 Patient found to have a left-sided hydronephrosis with a 5 mm obstructing stone. Urine was reviewed and there is no signs of acute infection. Patient does have slightly elevated BUN/creatinine here today. Otherwise remainder of her workup except for platelet count are completely unremarkable and at baseline. Patient does have chronic low platelets but today there 67. There is no visible signs of petechial lesions. Patient was discussed with the hospitalist Dr. Mittal and there was no other concerns or issues at this point. Patient will be admitted for definitive management. We will continue to monitor here in the emergency room until admission process is completed.
[2017-12-16] MEDS ORDERED: *HR* FentaNYL (PF) 100 MCG/2 ML VIAL IVP ONE (08:34)
[2017-12-16] MEDS ORDERED: *HR* HYDROcodone/Acet 5/325 mg TABLET PO PRN ×2 (09:12→20:55)
[2017-12-16] MEDS ORDERED: *HR* OxyCODONE Immed Rel 5 MG TABLET PO PRN ×2 (09:12→20:55)
[2017-12-16] MEDS ORDERED: Naloxone 0.4 MG/ML INJ IVP PRN ×2 (09:12→20:55)
[2017-12-16] MEDS ORDERED: Acetaminophen 325 MG TABLET PO PRN (09:12)
[2017-12-16] MEDS ORDERED: 0.9 % Sodium Chloride 1,000 ML IVC SCH ×2 (09:15→20:55)
--- NOTE | 2017-12-16 09:28 | Internal Med History&Physical ---
Date of Encounter: 12/16/17 Time of Encounter: 09:52 Internal Medicine - H&P: HPI Chief complaint: Altered mental status Admitted From: Home Plans for Post Hospital Care: Home History of present illness: Ms. Jackson is a 57 year old female with cognitive deficits, demetia, HLD, HTN, CKD III, Seizure disorder, Hypothyroid, Anti-phospholipid syndrome on Warfarin She was recently started on ciprofloxacin yesterday for UTI by PCP, and developed worsening mental status by evening time. Her caregiver and thought she was just tired, but she continued to be lethargic and confused and at this mrn, became non-verbal. History is obtained from partner due to patient's mental status He also reports she complained of shortness of breath last night and started coughing this a.m. He reports she had temepratures between 99-100, no chest pain or SOB She has a hx of seizures but last seizure several years ago. denies any seizure-like activity. She has been compliant with her meds He denies any changes in bowel or urinary habits. During evaluation, the patient continues to puff, she is able to same few words , but unable to hold a conversation, she follows commands and is able to move all extremities on command She is protecting her airway Work up in the ER revealed acute thrombocytopenia LT count 63 (141 on presentation), CBC otherwise unremarkable, INR 6.0, without any evidence of bleeding, ABG with alkalosis, PH 7.47, PCO2 24, Chem with NILSA, Hyponatremia, Hypokalemia, Hypophosphatemia, LFT unremarkable, trop negative, UA: dirty, Lactic acid WNL Abd/Pelvis CT: Left hydronephrosis secodnary to a 5mm ureteral calculus, bilateral urolithiasis, biliary sludge , LLL nodule Head CT: Mild small vessel chronic ischemic changes without acute hemorrhage or definite evidence for acute ischemia. CXR: Right basilar atelectasis or PNA We will admit in-patient for management of acute encephalopathy, NILSA, PNA, Left hydronephrosis, Supratherapeutic INR it is expected that hospital stay will exceed 2 MN Past Med Surg Social Fam HX - Past Medical History Medical history: dementia, hyperlipidemia, hypertension, renal disease, seizures , thyroid disease, TIA Additional medical history: vascular dementia, antiphospholid syndrome Psychiatric history: anxiety, depression - Past Surgical History Surgical History: , other Additional surgical history: colonoscopy, ablation - Social History Smoking Status: Never smoker Alcohol use: none Drug use: none Internal Medicine - H&P: Meds Atorvastatin Calcium [Lipitor] 20 mg PO HS 12/16/17 [History] BuPROPion SR (12 HR) [Wellbutrin SR] 150 mg PO 1200 12/16/17 [History] BuPROPion SR (12 HR) [Wellbutrin SR] 300 mg PO QAM 12/16/17 [History] Calcium Carbonate [Calcium] 500 mg PO DAILY 12/16/17 [History] Ciprofloxacin HCl [Cipro] 500 mg PO BID 12/16/17 [History] FLUoxetine HCl [Fluoxetine HCl] 40 mg PO DAILY 12/16/17 [History] Levothyroxine [Synthroid] 100 mcg PO 0630 12/16/17 [History] Ondansetron ODT [Zofran ODT] 4 mg PO DAILY PRN 12/16/17 [History] Potassium Chloride 20 meq PO BID 12/16/17 [History] Quetiapine Fumarate [Seroquel] 50 mg PO HS 12/16/17 [History] Spironolactone [Aldactone] 50 mg PO BID 12/16/17 [History] Topiramate [Topamax] 50 mg PO BID 12/16/17 [History] Trazodone HCl 300 mg PO HS 12/16/17 [History] Warfarin Sodium [Warfarin Sodium] 2.5 mg PO DAILY 12/16/17 [History] raNITIdine HCl [Ranitidine HCl] 300 mg PO DAILY 12/16/17 [History] 3 Allergy/AdvReac Type Severity Reaction Status Date / Time divalproex sodium AdvReac See Verified 12/16/17 07:46 [From Depakote] Comments phenytoin [From Dilantin] AdvReac Hives Verified 12/16/17 07:46 All Systems PM: A 10-system review of systems was performed and is negative for pertinent findings except as documented above in the HPI. - Constitutional Constitutional: as per HPI - EENT Eyes: as per HPI Ears: as per HPI Nose, mouth and throat: as per HPI - Cardiovascular Cardiovascular ROS IM: as per HPI - Respiratory Respiratory: as per HPI - Gastrointestinal Gastrointestinal: as per HPI - Genitourinary Genitourinary: as per HPI - Musculoskeletal Musculoskeletal ROS IM: as per HPI - Integumentary Integumentary IM: as per HPI - Neurological Neurological ROS: as per HPI - Hematologic/Lymphatic Hematologic/Lymphatic: as per HPI - Constitutional Vitals: Temp Pulse Resp BP Pulse Ox 98.8 F 92 18 118/81 99 12/16/17 05:20 12/16/17 08:42 12/16/17 08:42 12/16/17 08:42 12/16/17 08:42 General appearance: Present: A&O X 1 (oriented to self only. ), pleasant, no acute distress - Head Head exam: Present: atraumatic, normocephalic - Eye Eye exam: Present: PERRL, conjuntiva pink, sclera anicteric Pupils: Present: PERRL - Neck Neck exam general surgery: Present: supple, trachea midline. Absent: lymphadenopathy - Respiratory Respiratory exam: Present: CTAB. Absent: accessory muscle use, rales, rhonchi, wheezes - Cardiovascular Cardiovascular exam: Present: RRR, +S1, +S2. Absent: diastolic murmur, gallop, rubs, systolic murmur - GI/Abdominal GI/Abdominal exam: Present: normal bowel sounds, soft, no peritoneal signs. Absent: distended, tenderness - Extremities Exam Extremities exam: Present: warm, radial pulses palpable and symmetrical. Absent : calf tenderness, cyanotic, pedal edema - Neurological Exam Neurological exam: Present: altered, strengths equal and symetr throughout, speech deficit (expressive dysarthria). Absent: oriented X3 (oriented to self only), facial droop - Skin Skin exam: Present: dry, intact Internal Med - H&P Results - Labs CBC & Chem 7: 12/16/17 05:27 12/16/17 05:27 - Assessment and plan (1) Hydronephrosis Current Visit: Yes Status: Acute Assessment and plan: urology has been consulted, follow recommendations Qualifiers: Hydronephrosis type: with ureteral calculous obstruction Qualified Code(s) : N13.2 - Hydronephrosis with renal and ureteral calculous obstruction (2) Encephalopathy Current Visit: Yes Status: Acute Assessment and plan: Acute encephaolopathy Oriented to self only No focal deficits Patient does have dysarthria and difficulty saying her words, when she speaks , it is clear Encephalopathy may be due to medication effects, NILSA, PNA, or post-ictal Continue neurochecks q2h Brain MRI without contrast has been ordered Consider neuro eval if symptoms do not improve after correction of underlying metabolic derangements (3) PNA (pneumonia) Current Visit: Yes Status: Acute Assessment and plan: Avoid fluorquinolones as they lower seizure threshold in a patient with known hx of seizures Her symptoms said to have started after being started on ciprofloxacin Start her on ceftriaxone and azithromycin Follow blood cultures she is not septic Qualifiers: Pneumonia type: due to unspecified organism Laterality: right Lung location: lower lobe of lung Qualified Code(s): J18.1 - Lobar pneumonia, unspecified organism (4) Acute kidney injury Current Visit: Yes Status: Acute Assessment and plan: Likely combination of pre-renal and post-renal with evidence of uretreal stone with L hydronephrosis urology has been consulted Patient has a background CKD III Continue IVF hydration Continue to monitor electrolytes Avoid nephrotoxins (5) Left ureteral calculus Current Visit: Yes Status: Acute Assessment and plan: As in hydronephrosis (6) Supratherapeutic INR Current Visit: Yes Status: Acute Assessment and plan: INR 6.0 No bleeding Hold Coumadin Give 2 FFP for invasive procedure planned by urology Repeat INR a.m (7) Hypophosphatemia Current Visit: Yes Status: Acute Assessment and plan: replaced po, continue to monitor (8) Hypokalemia Current Visit: Yes Status: Acute Assessment and plan: replaced po, patient is on potassium replacements at home, hold home replacements due to NILSA and monitor K daily (9) Antiphospholipid syndrome Current Visit: Yes Status: Chronic Assessment and plan: continue home meds Hold warfarin (10) Seizure disorder Current Visit: Yes Status: Chronic Assessment and plan: continue home meds (11) Thrombocytopenia Current Visit: Yes Status: Acute Assessment and plan: Unknown cause PLT count is 63 No current known etiology PLT was WNL 11/2017, continue to monitor - Time Spent With Patient Total time spent is greater than 50% in coordination of care (as documented) at patient's floor/unit and/or counseling patient:
--- NOTE | 2017-12-16 09:45 | Urology - Consult Note ---
Date of Encounter: 12/16/17 Time of Encounter: 09:32 - Assessment and Plan (1) Left ureteral calculus Current Visit: Yes Status: Acute Assessment and plan: 57 year old female with distal left ureteral calculus and left hydronephrosis. Patient is non-verbal on examination. I reviewed CT results and stone extraction procedure with patient and her . has expressed concern for bleeding with surgery secondary to elevated INR. Patient is being admitted to Hospitalist Service. I have discussed this case with Dr. Levy and paged Dr. Mittal in order to reverse INR to a safer operative level. Patient will be tentatively scheduled for Left Ureteroscopic Stone Extraction pending INR value this afternoon. Urology CN:HPI Consult date: 12/16/17 Reason for consult Urology: Other (Left Ureteral Stone) History of present illness: Patient is a 57 year old female who presents to the ED with altered mental status, chills, and recent diagnosis of UTI. Patient's accompanied her and gave full history, as patient is cognitively delayed. Patient has history of Stage III CKD, vascular dementia, antiphospholipid antibody syndrome with DVT. reports 4 days of UTI like symptoms and states symptoms acutely worsened over last 24 hours. Patient does have a known history of renal stones , but she has not undergone any type of surgical extraction in the past. states last known kidney stone was approximately 10 years ago. Patient' s expresses concern for INR elevation of 6.0. Past Med Surg Social Fam HX - Past Medical History Medical history: dementia, hyperlipidemia, hypertension, renal disease, seizures , thyroid disease, TIA Additional medical history: vascular dementia, antiphospholid syndrome Psychiatric history: anxiety, depression - Past Surgical History Surgical History: , other Additional surgical history: colonoscopy, ablation - Social History Smoking Status: Never smoker Alcohol use: none Drug use: none Medications and Allergies Atorvastatin Calcium [Lipitor] 20 mg PO HS 12/16/17 [History] BuPROPion SR (12 HR) [Wellbutrin SR] 150 mg PO 1200 12/16/17 [History] BuPROPion SR (12 HR) [Wellbutrin SR] 300 mg PO QAM 12/16/17 [History] Calcium Carbonate [Calcium] 500 mg PO DAILY 12/16/17 [History] Ciprofloxacin HCl [Cipro] 500 mg PO BID 12/16/17 [History] FLUoxetine HCl [Fluoxetine HCl] 40 mg PO DAILY 12/16/17 [History] Levothyroxine [Synthroid] 100 mcg PO 0630 12/16/17 [History] Ondansetron ODT [Zofran ODT] 4 mg PO DAILY PRN 12/16/17 [History] Potassium Chloride 20 meq PO BID 12/16/17 [History] Quetiapine Fumarate [Seroquel] 50 mg PO HS 12/16/17 [History] Spironolactone [Aldactone] 50 mg PO BID 12/16/17 [History] Topiramate [Topamax] 50 mg PO BID 12/16/17 [History] Trazodone HCl 300 mg PO HS 12/16/17 [History] Warfarin Sodium [Warfarin Sodium] 2.5 mg PO DAILY 12/16/17 [History] raNITIdine HCl [Ranitidine HCl] 300 mg PO DAILY 12/16/17 [History] 3 Allergy/AdvReac Type Severity Reaction Status Date / Time divalproex sodium AdvReac See Verified 12/16/17 07:46 [From Depakote] Comments phenytoin [From Dilantin] AdvReac Hives Verified 12/16/17 07:46 Review of Systems ROS unobtainable: due to mental status ( able to provide relevant history ) - Constitutional chills, fatigue - EENT Nose, mouth and throat: dry mouth - Cardiovascular no chest pain, no diaphoresis, no dyspnea - Respiratory no dyspnea - Gastrointestinal abdominal pain, nausea, vomiting, no change in bowel habits - Genitourinary Genitourinary: difficulty urinating, dysuria, flank pain, urinary frequency, urinary hesitancy, urinary urgency, no change in urinary stream, no hematuria Menstruation: post menopausal - Musculoskeletal back pain, no muscle weakness - Integumentary no rash, no swelling - Neurological confusion - Psychiatric anxiety, depression - Hematologic/Lymphatic as per HPI, easy bleeding Exam Initial Vital Signs Temp Pulse Resp BP Pulse Ox 98.8 F 102 16 113/70 93 12/16/17 05:08 12/16/17 05:08 12/16/17 05:08 12/16/17 05:08 12/16/17 05:08 - General physical appearance Present: well developed, no distress - Eyes Present: PERRL, normal ocular movement - ENT Present: normal nares. Absent: nasal discharge - Neck Present: no masses, trachea midline - Respiratory Present: normal respiratory effort - Cardiovascular Cardiovascular exam IM: RRR - Abdomen Abdomen: Present: soft, non tender. Absent: guarding, rigid, distended - Integumentary Present: no rash, no growths, no abnormal pigmentation - Neurologic Present: disoriented, confused Urology Results - Labs 12/16/17 05:27 12/16/17 05:27 Abnormal lab results Plt Count 63 K/mcL (140-400) L 12/16/17 05:27 Band Neutrophils % 10.0 % (0-4) H 12/16/17 05:27 Metamyelocytes % 2.0 % (0) H 12/16/17 05:27 Platelet Estimate Decreased (Normal) L 12/16/17 05:27 PT 68.1 Seconds (9.4-12.1) H* 12/16/17 05:27 INR 6.0 H* 12/16/17 05:27 APTT 66.6 Seconds (26.0-36.0) H 12/16/17 05:27 ABG pH 7.47 pH Units (7.32-7.45) H 12/16/17 05:55 ABG pCO2 24 mmHg (35-45) L 12/16/17 05:55 ABG pO2 81 mmHg (85-104) L 12/16/17 05:55 ABG HCO3 18 mEq/L (21-27) L 12/16/17 05:55 ABG Total CO2 18 mEq/L (20-26) L 12/16/17 05:55 ABG Base Excess -5 mEq/L (-2 to 3) L 12/16/17 05:55 Sodium 131 mEq/L (136-145) L 12/16/17 05:27 Potassium 3.3 mEq/L (3.5-5.1) L 12/16/17 05:27 Carbon Dioxide 18 mEq/L (23-29) L 12/16/17 05:27 BUN 33 mg/dL (6-20) H 12/16/17 05:27 Creatinine 1.99 mg/dL (0.60-1.20) H 12/16/17 05:27 Est GFR ( Amer) 31 (> 60) L 12/16/17 05:27 Est GFR (Non-Af Amer) 26 (> 60) L 12/16/17 05:27 Glucose 115 mg/dL (70-105) H 12/16/17 05:27 Phosphorus 1.4 mg/dL (2.7-4.5) L 12/16/17 05:27 Direct Bilirubin 0.4 mg/dL (0.0-0.2) H 12/16/17 05:27 Alkaline Phosphatase 111 Units/L (34-104) H 12/16/17 05:27 Serum Total Protein 6.2 g/dL (6.4-8.9) L 12/16/17 05:27 Albumin 3.2 g/dL (3.5-5.7) L 12/16/17 05:27 Urine Clarity Cloudy (Clear) A 12/16/17 06:15 Urine Blood Small (Negative) H 12/16/17 06:15 Ur Leukocyte Esterase Small (Negative) H 12/16/17 06:15 Urine Microscopic WBC 3-5 per hpf (0-3) H 12/16/17 06:15 Ur Squamous Epith Cells Many per lpf (None-Few) H 12/16/17 06:15 Urine Yeast Many per hpf (None Seen) H 12/16/17 06:15 Ur Culture Indicated? NO. (NO) A 12/16/17 06:15 All other labs normal. - Imaging CT scan - abdomen: report reviewed, image reviewed CT scan - pelvis: report reviewed, image reviewed Consult Discharge Plan - Plan Referrals: Kerry Farris MD [Primary Care Provider] -
[2017-12-16] MEDS ORDERED: Azithromycin 500 MG in D5% in Water 250 ML IVPB SCH (10:00)
[2017-12-16] MEDS ORDERED: cefTRIAXone 1,000 MG in Water for inj. (sterile) 20 ML 10 ML IVP SCH (10:00)
[2017-12-16] MEDS ORDERED: BuPROPion SR (12 HR) 150 MG TABLET PO SCH (12:00)
[2017-12-16] MEDS ORDERED: 0.9 % Sodium Chloride 250 ML ONE ×2 (14:32→16:39)
[2017-12-16] MEDS ORDERED: Acetaminophen IV 1,000 MG/100 ML INFUS..BTL IVPB ONE (14:43)
[2017-12-16] MEDS ORDERED: Isovue-300 50 ML VIAL IVP ONE (16:07)
[2017-12-16 17:25] LABS: INR 4.3
--- NOTE | 2017-12-16 17:33 | Electrocardiograph Report ---
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
[2017-12-16] MEDS ORDERED: *HR* Heparin 5,000 UNIT/ML VIAL SQ SCH (18:00)
[2017-12-16 18:22] LABS: Amphetamine Screen,Urine Negative ng/mL (Cutoff=1000); Barbiturate Screen,Urine Negative ng/mL (Cutoff=200); Benzodiazepines Screen,Urine Negative ng/mL (Cutoff=200); Cannabinoid Screen,Urine Negative ng/mL (Cutoff = 50); Cocaine Screen,Urine Negative ng/mL (Cutoff= 300); Opiate Screen,Urine Negative ng/mL (Cutoff=300); Phencyclidine Screen,Urine Negative ng/mL (Cutoff=25)
--- NOTE | 2017-12-16 18:34 | Anesthesia Evaluation PreOp ---
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 SPECIALIST History: CVA (last one 2005), TIA, Other (Dementia) Other Medical History: Renal (CKD), Thyroid Anesthesia History: No Prior Anesthetic Complications : No Alcohol Use: none Drug use: none Medications and Allergies Atorvastatin Calcium [Lipitor] 20 mg PO HS 12/16/17 [History] BuPROPion SR (12 HR) [Wellbutrin SR] 150 mg PO 1200 12/16/17 [History] BuPROPion SR (12 HR) [Wellbutrin SR] 300 mg PO QAM 12/16/17 [History] Calcium Carbonate [Calcium] 500 mg PO DAILY 12/16/17 [History] Ciprofloxacin HCl [Cipro] 500 mg PO BID 12/16/17 [History] FLUoxetine HCl [Fluoxetine HCl] 40 mg PO DAILY 12/16/17 [History] Levothyroxine [Synthroid] 100 mcg PO 0630 12/16/17 [History] Ondansetron ODT [Zofran ODT] 4 mg PO DAILY PRN 12/16/17 [History] Potassium Chloride 20 meq PO BID 12/16/17 [History] Quetiapine Fumarate [Seroquel] 50 mg PO HS 12/16/17 [History] Spironolactone [Aldactone] 50 mg PO BID 12/16/17 [History] Topiramate [Topamax] 50 mg PO BID 12/16/17 [History] Trazodone HCl 300 mg PO HS 12/16/17 [History] Warfarin Sodium [Warfarin Sodium] 2.5 mg PO DAILY 12/16/17 [History] raNITIdine HCl [Ranitidine HCl] 300 mg PO DAILY 12/16/17 [History] 3 Allergy/AdvReac Type Severity Reaction Status Date / Time divalproex sodium AdvReac See Verified 12/16/17 07:46 [From Depakote] Comments phenytoin [From Dilantin] AdvReac Hives Verified 12/16/17 07:46 - Meds/Allergy Pre-op Review Medications Reviewed: Yes Allergies Reviewed: Yes Beta Blockers on Current Med List: No Anesthesia Results - Labs 12/16/17 05:27 12/16/17 05:27 Laboratory Tests 12/16/17 12/16/17 12/16/17 05:27 05:27 17:01 Hgb 13.0 Hct 37.9 Plt Count 63 L INR 4.3 Sodium 131 L Potassium 3.3 L BUN 33 H Creatinine 1.99 H - Imaging EKG: report reviewed (SR) Anesthesia Exam Vital Signs/O2 Sat/Glucose, Most Current Temp Pulse Resp BP Pulse Ox 12/16/17 18:21 98.4 F 100 20 110/74 95 12/16/17 17:00 98.8 F 107 20 99/65 95 12/16/17 16:41 98.9 F 111 20 108/69 94 12/16/17 15:58 99.0 F 111 20 97/64 95 12/16/17 14:52 99.4 F 114 20 100/62 93 12/16/17 14:37 101.1 F H 120 22 100/62 93 Height: 5'1 Weight: 122 lbs NPO (# of Hours): MN Pain Scale: 0 - HEENT Pupil (Motor): Pupils equal, EOMI Mallampati: II Teeth: Normal Oral Opening: Greater than 3 - SURVEILLANCE SPECIALIST LOC: Oriented SURVEILLANCE SPECIALIST Motor: Normal RUE, Normal LUE, Normal RLE, Normal LLE, Normal Face SURVEILLANCE SPECIALIST Sensory: Normal: RUE, LUE, RLE, LLE, Face - Cardiac Rhythm: Regular Murmur: None JVD: No Carotid Bruit: No - Pulmonary Breath Sounds: bilateral Clear Respiratory Effort: Symmetrical Anesthesia Assess/Plan ASA Score: 3 (HTN CVA AntiPhospholipid) Modified Cheryl Scale for Level of Consciousness: Cooperative, oriented, and tranquil Anesthetic Plan: General Monitoring Plan: Standard Monitors Recovery Plan: PACU (Discussed GA, agrees to proceed)
[2017-12-16] MEDS ORDERED: *HR* Propofol 200 MG/20 ML VIAL IVP ONE (19:17)
[2017-12-16] MEDS ORDERED: *HR* FentaNYL (PF) 100 MCG/2 ML VIAL ONE (19:17)
[2017-12-16] MEDS ORDERED: Dexamethasone 4 MG/ML VIAL ONE (19:17)
[2017-12-16] MEDS ORDERED: Lidocaine -MPF 2% 2 ML VIAL ONE (19:17)
[2017-12-16] MEDS ORDERED: Ondansetron 4 MG/2 ML VIAL ONE (19:17)
[2017-12-16] MEDS ORDERED: *HR* PHENYLEPHRINE 1,000 MCG/10 ML SYRINGE IVP ONE (19:43)
--- NOTE | 2017-12-16 20:18 | Operative Note ---
Date of procedure: 12/16/17 Pre-op diagnosis: left ureteral stone Post-op diagnosis: same Procedure: Left ureteroscopic stone extraction Left retrograde pyelogram Left ureteral stent placement Anesthesia: GETA Surgeon: Alejo Levy Was there an family law legal assistant present: No Estimated blood loss (cc): 0 Specimen: Left ureteral stone Condition: stable Disposition: PACU Procedure in Detail: PROCEDURE IN DETAIL: Patient was taken back to the operating room, positioned supine on the operating table. Anesthesia was applied without complication. They were moved into dorsal lithotomy. Careful attention was maintained to cushion all pressure points for patient's safety. They were prepped and draped in sterile fashion. Time-out was performed with the proper patient and procedure. A 21-Belgian rigid cystoscope was inserted into the bladder without difficulty. Systematic examination of bladder revealed no abnormalities. The left ureteral orifice was cannulated using a 5-Belgian ureteral Catheter and a retrograde pyelogram was performed using Isovue. A filling defect was identified which corresponded to the stone. At that point, a zip wire was placed through the 5-Belgian and confirmed in the renal pelvis with fluoroscopy. An 8-10 dilator was then placed over the zip wire to passively dilate the ureteral orifice. A semi-rigid ureteroscope was carefully inserted into the bladder and guided into the ureteral oriface. At that point, the stone was encountered and I was able to basket extract the stone without laser lithotripsy. I reinserted the scope more proximal to the stone and encountered a large collection of debris which was organized and basketed out. Once the debris was removed significant reddish-brown purulent urine and fluid drained from the upper system. I eventually placed a 4.8 x 26 ureteral stent, drain the bladder and replaced the Tellez catheter.
--- NOTE | 2017-12-16 20:48 | Anesthesia Evaluation Post Op ---
Date of Encounter: 12/16/17 Time of Encounter: 20:35 - Vital Signs Vital Signs: Last Vital Signs Temp 98.2 F 12/16/17 20:35 Pulse 93 12/16/17 20:35 Resp 20 12/16/17 20:35 BP 104/72 12/16/17 20:35 Pulse Ox 95 12/16/17 20:35 - Lungs Lungs: Clear Ascult./Percussion - Airway Airway: Non-obstructed - Cardiovascular Regular Rate - Mental Status Mental Status: Baseline Status - Nausea Vomiting Nausea Vomiting: Not Present - Hydration Hydration: NPO - Discharge PostOp Status: Transfer Patient to floor
[2017-12-16] MEDS ORDERED: Topiramate 100 MG TABLET PO SCH (21:00)
[2017-12-16] MEDS ORDERED: traZODone 50 MG TABLET PO SCH (21:00)
[2017-12-17] MEDS: traZODone 50 MG TABLET PO SCH ×2 (00:33→21:24)
[2017-12-17] MEDS: Topiramate 25 MG TABLET PO SCH ×3 (00:33→21:24)
[2017-12-17 04:22] LABS: Hematocrit 29.8 % (35.3-44.9); Lymphocytes # 0.4 K/mcL (0.6-4.6); Mean Corpuscular HGB Conc 33.9 g/dL (31.6-35.5); Mean Corpuscular Volume 94.3 fL (83.0-100.0); Mean Platelet Volume 12.5 fL (9.4-12.4); Red Blood Count 3.16 M/mcL (3.82-4.97)
[2017-12-17 04:41] LABS: Hemoglobin 10.1 g/dL (11.5-15.4); Platelet Count 32 K/mcL (140-400)
[2017-12-17 04:46] LABS: Monocytes # 0.2 K/mcL (0.0-1.3); Neutrophils # 8.9 K/mcL (1.6-8.9); Platelet Estimate Decreased (Normal)
[2017-12-17 04:49] LABS: Calcium 8.3 mg/dL (8.6-10.3); Magnesium 2.1 mg/dL (1.6-2.6); Phosphorous 2.7 mg/dL (2.7-4.5); Potassium 4.1 mEq/L (3.5-5.1)
[2017-12-17] MEDS ORDERED: *HR* Heparin 5,000 UNIT/ML VIAL SQ SCH (06:00)
[2017-12-17] MEDS ORDERED: Famotidine 20 MG TABLET PO SCH (07:30)
--- NOTE | 2017-12-17 08:44 | Urology Progress Note ---
<Allie Hodge N - Last Filed: 12/17/17 08:41> Date of Encounter: 12/17/17 Time of Encounter: 08:41 - Assessment and Plan (1) Left ureteral calculus Current Visit: Yes Status: Acute Assessment and plan: Patient is a 57-year-old female who is one day status post left ureteral stone extraction, left retrograde pyelogram and left ureteral stent placement. Patient is recovering well in terms of pain control and urine output. Patient is afebrile and in no apparent distress. Patient is being currently co-managed by hospitalist service who believes the mental status change is due to infectious encephalopathy. We will continue to follow the patient and provide outpatient instructions as needed. Progress Note Subjective: no new complaints (Patient is resting comfortably with family members at bedside. Indwelling bergman is actively draining orange-red urine with no visible clots in tubing or bag. ) Objective Initial Vital Signs Temp Pulse Resp BP Pulse Ox 98.8 F 102 16 113/70 93 12/16/17 05:08 12/16/17 05:08 12/16/17 05:08 12/16/17 05:08 12/16/17 05:08 - General physical appearance Present: well developed, no distress, no pain - Respiratory Present: normal expansion, normal respiratory effort - Abdomen Present: soft, non tender. Absent: distended - Genitourinary Present: normal external genitalia Urine Appearance: Present: Hematuria - Integumentary Present: no rash, no abnormal pigmentation - Musculoskeletal Present: other (no pedal edema ) - Psychiatric Present: other (patient remains non-verbal ). Absent: oriented to time, oriented to person, oriented to place, speech is normal - Labs 12/17/17 03:52 12/17/17 03:52 Diabetes panel 12/17/17 Range/Units 03:52 Sodium 137 (136-145) mEq/L Potassium 4.1 (3.5-5.1) mEq/L Chloride 112 H (98-107) mEq/L Carbon Dioxide 18 L (23-29) mEq/L BUN 25 H (6-20) mg/dL Creatinine 1.25 H (0.60-1.20) mg/dL Glucose 113 H (70-105) mg/dL Calcium 8.3 L (8.6-10.3) mg/dL Calcium panel 12/17/17 Range/Units 03:52 Calcium 8.3 L (8.6-10.3) mg/dL Phosphorus 2.7 (2.7-4.5) mg/dL Pituitary panel 12/17/17 Range/Units 03:52 Sodium 137 (136-145) mEq/L Potassium 4.1 (3.5-5.1) mEq/L Chloride 112 H (98-107) mEq/L Carbon Dioxide 18 L (23-29) mEq/L BUN 25 H (6-20) mg/dL Creatinine 1.25 H (0.60-1.20) mg/dL Glucose 113 H (70-105) mg/dL Calcium 8.3 L (8.6-10.3) mg/dL Adrenal panel 12/17/17 Range/Units 03:52 Sodium 137 (136-145) mEq/L Potassium 4.1 (3.5-5.1) mEq/L Chloride 112 H (98-107) mEq/L Carbon Dioxide 18 L (23-29) mEq/L BUN 25 H (6-20) mg/dL Creatinine 1.25 H (0.60-1.20) mg/dL Glucose 113 H (70-105) mg/dL Calcium 8.3 L (8.6-10.3) mg/dL - Imaging Additional Studies: INR is pending Consult Discharge Plan - Plan Referrals: Kerry Farris MD [Primary Care Provider] - <Alejo Levy - Last Filed: 12/17/17 18:08> Date of Encounter: 12/17/17 - Assessment and Plan (1) Left ureteral calculus Current Visit: Yes Status: Acute Assessment and plan: Status post stone extraction. We will continue catheter placement and leave stent in place until she improves clinically. No further urologic input at this time Objective Initial Vital Signs Temp Pulse Resp BP Pulse Ox 98.8 F 102 16 113/70 93 12/16/17 05:08 12/16/17 05:08 12/16/17 05:08 12/16/17 05:08 12/16/17 05:08 - Labs 12/17/17 13:24 12/17/17 03:52 Diabetes panel 12/17/17 Range/Units 03:52 Sodium 137 (136-145) mEq/L Potassium 4.1 (3.5-5.1) mEq/L Chloride 112 H (98-107) mEq/L Carbon Dioxide 18 L (23-29) mEq/L BUN 25 H (6-20) mg/dL Creatinine 1.25 H (0.60-1.20) mg/dL Glucose 113 H (70-105) mg/dL Calcium 8.3 L (8.6-10.3) mg/dL Thyroid panel 12/17/17 Range/Units 15:43 TSH 5.905 H (0.340-5.600) mcIU/mL Calcium panel 12/17/17 Range/Units 03:52 Calcium 8.3 L (8.6-10.3) mg/dL Phosphorus 2.7 (2.7-4.5) mg/dL Pituitary panel 12/17/17 12/17/17 Range/Units 03:52 15:43 Sodium 137 (136-145) mEq/L Potassium 4.1 (3.5-5.1) mEq/L Chloride 112 H (98-107) mEq/L Carbon Dioxide 18 L (23-29) mEq/L BUN 25 H (6-20) mg/dL Creatinine 1.25 H (0.60-1.20) mg/dL Glucose 113 H (70-105) mg/dL Calcium 8.3 L (8.6-10.3) mg/dL TSH 5.905 H (0.340-5.600) mcIU/mL Adrenal panel 12/17/17 Range/Units 03:52 Sodium 137 (136-145) mEq/L Potassium 4.1 (3.5-5.1) mEq/L Chloride 112 H (98-107) mEq/L Carbon Dioxide 18 L (23-29) mEq/L BUN 25 H (6-20) mg/dL Creatinine 1.25 H (0.60-1.20) mg/dL Glucose 113 H (70-105) mg/dL Calcium 8.3 L (8.6-10.3) mg/dL
[2017-12-17] MEDS ORDERED: FLUoxetine 20 MG CAPSULE PO SCH (09:00)
[2017-12-17] MEDS ORDERED: BuPROPion SR (12 HR) 150 MG TABLET PO SCH (09:00)
--- NOTE | 2017-12-17 09:23 | Internal Med Progress Note ---
Date of Encounter: 12/17/17 Time of Encounter: 09:15 - Assessment and plan (1) Hydronephrosis Current Visit: Yes Status: Acute Assessment and plan: Hydronephrosis secondary to left ureteral stone Underwent left ureteral stone extraction, left retrograde pyelogram electrical stent placement Adequate urine output Tellez catheter with bright red blood, clearing up as the afternoon progresses. No visible clots into the lower leg Urology following in consultation Qualifiers: Hydronephrosis type: with ureteral calculous obstruction Qualified Code(s) : N13.2 - Hydronephrosis with renal and ureteral calculous obstruction (2) Left ureteral calculus Current Visit: Yes Status: Acute Assessment and plan: As in hydronephrosis s/p left ureteral stone extraction left retrograde pyelogram and left ureteral stent placement Urology following consultation, thank you Continuing to have adequate urinary output, Tellez bag draining bright red blood without clots and appears to be clearing Should be noted that the patient does have a supratherapeutic INR Monitor for signs of increased blood in urine (3) PNA (pneumonia) Current Visit: Yes Status: Acute Assessment and plan: CXR with PNA vs atelectasis Avoid fluorquinolones as they lower seizure threshold in a patient with known hx of seizures Her symptoms said to have started after being started on ciprofloxacin Continue ceftriaxone and azithromycin Follow blood cultures-pending she does not appear to be septic as she is afebrile, normal sinus rhythm and hemodynamically stable Qualifiers: Pneumonia type: due to unspecified organism Laterality: right Lung location: lower lobe of lung Qualified Code(s): J18.1 - Lobar pneumonia, unspecified organism (4) Encephalopathy Current Visit: Yes Status: Acute Assessment and plan: Acute encephaolopathy Possible causes for acute encephalopathy could be bacterial with PNA and suspected UTI, versus viral with PNA, medication, NILSA or post-ictal Initially presented with metabolic derangement however these have improved Today the patient is aphasic, and responsive only to tactile stimuli This is not her baseline, family at bedside and reports that she is normally verbal and appropriate unable to assess neurological status Brain MRI without acute process Destiney CT without acute process Obtain EEG now to assess for underlying seizure activity Neurology seeing in consultation, appreciate recommendations order B12, folate, tsh and ammonia to evaluate for reversible causes of encephalopahty if no improvement may require lumbar puncture Continue neurochecks q2h Transfer to higher level of acuity to E (5) Thrombocytopenia Current Visit: Yes Status: Acute Assessment and plan: Unknown cause PLT count is 32 today No current known etiology; likely d/t current illness PLT was WNL 11/2017, continue to monitor closely strict bed rest transfuse platelets now as patient is actively bleeding s/p ureteral stone removal (6) Acute kidney injury Current Visit: Yes Status: Acute Assessment and plan: Likely combination of pre-renal and post-renal with evidence of uretreal stone with L hydronephrosis Renal function improving today GFR and creatinine now back to baseline Patient has a background CKD III Continue IVF hydration Continue to monitor electrolytes Avoid to nephrotoxins Consider nephrology consult should renal function worsen (7) Supratherapeutic INR Current Visit: Yes Status: Acute Assessment and plan: INR remains supratherapeutic at 5.1 Bright red blood without clotting and Tellez catheter S/P renal calculi removal Continue to Hold Coumadin Monitor H&H closely every 8 hours Repeat INR daily; when improved consult pharmacy to manage coumadin Give 2 of FFP should hemoglobin drop below 10 Patient received 2 FFP prior to invasive procedure yesterday (8) Hypophosphatemia Current Visit: Yes Status: Acute Assessment and plan: Phosphate of 111 12/16/17 continue to monitor (9) Hypokalemia Current Visit: Yes Status: Acute Assessment and plan: Hypokalemic on arrival, replaced orally On potassium supplementation at home Holding on supplementation due to NILSA Monitor potassium daily, serum potassium 4.1 today (10) Antiphospholipid syndrome Current Visit: Yes Status: Chronic Assessment and plan: continue home meds Hold warfarin for now 2/2 supratherapeutic INR (11) UTI (urinary tract infection) Current Visit: Yes Status: Acute Assessment and plan: suspect UTI in the setting of hydronephrosis, left renal calculi organism unknown send urine for culture treat with ceftriaxone Follow urine cultures Qualifiers: Urinary tract infection type: acute cystitis Hematuria presence: with hematuria Qualified Code(s): N30.01 - Acute cystitis with hematuria (12) Seizure disorder Current Visit: Yes Status: Chronic Assessment and plan: continue home meds neurology seeing in consultation; appreciate recommendations - Time Spent With Patient Total time spent is greater than 50% in coordination of care (as documented) at patient's floor/unit and/or counseling patient: Greater than 35 minutes - Subjective Interval history: Seen and examined at bedside today. No acute changes overnight. Remains aphasic, and lethargic. Family at bedside. Discussed at length with the family that the patient is encephalopathic and that it may take some time for her mental status to improve given her current illness and condition. I was able to answer all questions and family verbalized understanding. They deny any further questions at this time. I have informed them that I am available if they have any further concerns or questions. - Constitutional Vitals: Temp Pulse Resp BP Pulse Ox 97.9 F 71 14 121/78 97 12/17/17 07:14 12/17/17 07:14 12/17/17 07:14 12/17/17 07:14 12/17/17 07:14 General appearance: Present: A&O X 0. Absent: answers questions appropriately Exam: unable to answer questions or respond to commands - Head Head exam: Present: atraumatic, normocephalic - Eye Eye exam: Present: PERRL, conjuntiva pink, sclera anicteric Pupils: Present: PERRL - Neck Neck exam general surgery: Present: supple, trachea midline. Absent: lymphadenopathy - Respiratory Respiratory exam: Present: CTAB. Absent: accessory muscle use, rales, rhonchi, wheezes - Cardiovascular Cardiovascular exam: Present: RRR, +S1, +S2. Absent: diastolic murmur, gallop, rubs, systolic murmur - GI/Abdominal GI/Abdominal exam: Present: normal bowel sounds, soft, no peritoneal signs. Absent: distended, tenderness - Extremities Exam Extremities exam: Present: warm, radial pulses palpable and symmetrical. Absent : calf tenderness, cyanotic, pedal edema - Back Exam Back exam: Absent: CVA tenderness (L), CVA tenderness (R) - Neurological Exam Neurological exam: Present: altered - Expanded Neurological Exam Neurological exam expanded: Present: protecting the airway, total aphasia Speech: Present: total aphasia Cranial Nerves: gag reflex PM: Normal, tongue deviation PM: Normal Upper motor neuron: Babinski sign: Normal, sensory extinction: Normal Coma Scale Eye Opening: To Pain Coma Scale Motor Response: Withdraws to Pain Coma Scale Verbal Response: None Coma Scale Total: 7 - Skin Skin exam: Present: dry, intact Internal Medicine: Result - Labs CBC & Chem 7: 12/17/17 13:24 12/17/17 03:52 Labs: Short CBC 07/12/18 Range/Units 03:52 WBC 9.5 (4.3-11.1) K/mcL Hgb 10.1 L D (11.5-15.4) g/dL Hct 29.8 L (35.3-44.9) % Plt Count 32 L (140-400) K/mcL Neutrophils # 8.9 (1.6-8.9) K/mcL BMP 12/17/17 03:52 Sodium 137 Potassium 4.1 Chloride 112 H Carbon Dioxide 18 L BUN 25 H Creatinine 1.25 H Glucose 113 H Calcium 8.3 L - ABG Interpretation ABG results: ABG ABG pH 7.47 pH Units (7.32-7.45) H 12/16/17 05:55 ABG pCO2 24 mmHg (35-45) L 12/16/17 05:55 ABG pO2 81 mmHg (85-104) L 12/16/17 05:55 ABG O2 Saturation 97 % (95-98) 12/16/17 05:55 PT/INR, D-dimer PT 49.0 Seconds (9.4-12.1) H* 12/16/17 17:01 - Impressions Impressions Retrograde Pyelogram 12/16/17 19:37 IMPRESSION: Intraprocedural fluoroscopic spot images as above. See separate procedure report for more information. D/ / Javan Ruth MD / Javan Ruth MD Interpreting Provider: Javan Ruth MD Consult Discharge Plan - Plan Referrals: Kerry Farris MD [Primary Care Provider] -
[2017-12-17] MEDS: cefTRIAXone 1,000 MG in Water for inj. (sterile) 20 ML 10 ML IVP SCH (10:05)
[2017-12-17] MEDS: Azithromycin 500 MG in D5% in Water 250 ML IVPB SCH (10:06)
[2017-12-17] MEDS: 0.9 % Sodium Chloride 1,000 ML IVC SCH ×2 (10:07→20:56)
[2017-12-17] MEDS: FLUoxetine 20 MG CAPSULE PO SCH (10:41)
[2017-12-17] MEDS: Famotidine 20 MG TABLET PO SCH (10:41)
[2017-12-17] MEDS: BuPROPion SR (12 HR) 150 MG TABLET PO SCH ×2 (10:43→12:47)
[2017-12-17 11:12] LABS: Prothrombin Time 57.5 Seconds (9.4-12.1)
[2017-12-17 11:13] LABS: INR 5.1
[2017-12-17 12:01] LABS: ABG Base Excess -7 mEq/L (-2 to 3); ABG HCO3 17 mEq/L (21-27); ABG Oxygen Saturation 99 % (95-98); ABG PCO2 28 mmHg (35-45); ABG PH 7.39 pH Units (7.32-7.45); ABG PO2 122 mmHg (85-104); ABG TCO2 18 mEq/L (20-26)
[2017-12-17 13:34] LABS: Hematocrit 31.1 % (35.3-44.9); Hemoglobin 10.5 g/dL (11.5-15.4)
--- NOTE | 2017-12-17 13:50 | Neurology - Consult Note ---
<Eliezer Lynch R - Last Filed: 12/17/17 13:38> Date of Encounter: 12/17/17 Time of Encounter: 13:39 Assessment and Plan (1) Encephalopathy Current Visit: Yes Status: Acute MRI does not reveal evidence of stroke or acute intracranial process. Will order B12, folate, TSH, and ammonia to evaluate potential reversible causes of encephalopathy. Patient has a remote history of seizure, will check EEG to evaluate for underlying seizure activity. Repeat UA at this time. Patient currently has elevated INR, if patient status does not improve may require lumbar puncture if INR allows. History of Present Illness Chief complaint: encephaloathy, NILSA HPI: Ms. Jackson is a 57 year old female with a history of antiphosolipid antibody syndrome, CKD grade III, HTN, TIA, seizures. Due to patient altered mental status, history and HPI is provided by family. Patient began feeling malaise, febrile, nausea, and vomiting a week ago. 3 days ago she was started on Ciprofloxacin by primary care for UTI. 2 days ago patient awoke spouse complaining of worsened symptoms, additionally she began feeling lethargic, confused, and had difficulty communicating and speaking. It was observed the she had some aphasia and generalized weakness in the emergency department, no focal neurologic deficits were noted. Patient was found to have a right ureteral obstructive hydronephosis, NILSA, and pneumonia. Patient has been altered mental status since admission, and has continued to decline. Per family , her she has mild dementia and mildly slow speech at baseline as result of past TIA and seizure, last event was in 2005, she has been cognitively stable since that time. Generally ambulates well at home and able to care for self. She is on warfarin and was found to be supratherapeutic. Head CT and MRI do not reveal stroke or other acute intracranial process. Urine drug screen negative. Past Med Surg Social Fam HX - Past Medical History Medical history: dementia, hyperlipidemia, hypertension, renal disease, seizures , thyroid disease, TIA Additional medical history: vascular dementia, antiphospholid syndrome Psychiatric history: anxiety, depression - Past Surgical History Surgical History: , other Additional surgical history: colonoscopy, ablation - Social History Smoking Status: Never smoker Alcohol use: none Drug use: none - Family History Father Living Status: Age at : 72 Cause of : colon cancer Hx Family Cardiac Disorders: No Hx Family Respiratory Disorders: No Hx Family Cancer: Yes (colon cancer) Hx Family GI Disorders: No Hx Family Genitourinary Disorders: No Hx Family Endocrine Disorder: No Hx Family Musculoskeletal Disorders: No Hx Family Neuromuscular Disorders: No Hx Family Neurologic Disorders: No Hx Family HEENT Disorders: No Hx Family Autoimmune Disorders: No Hx Family Reproductive Disorders: No Hx Family Psychosocial Disorders: No Hx Family Medical Disorders: No Mother Hx Family Cardiac Disorders: No Hx Family Respiratory Disorders: No Hx Family Cancer: No Hx Family GI Disorders: No Hx Family Genitourinary Disorders: No Hx Family Endocrine Disorder: No Hx Family Musculoskeletal Disorders: No Hx Family Neuromuscular Disorders: No Hx Family Neurologic Disorders: No Hx Family HEENT Disorders: No Hx Family Autoimmune Disorders: No Hx Family Reproductive Disorders: No Hx Family Psychosocial Disorders: No Hx Family Medical Disorders: No Medications and Allergies Atorvastatin Calcium [Lipitor] 20 mg PO HS 12/16/17 [History] BuPROPion SR (12 HR) [Wellbutrin SR] 150 mg PO 1200 12/16/17 [History] BuPROPion SR (12 HR) [Wellbutrin SR] 300 mg PO QAM 12/16/17 [History] Calcium Carbonate [Calcium] 500 mg PO DAILY 12/16/17 [History] Ciprofloxacin HCl [Cipro] 500 mg PO BID 12/16/17 [History] FLUoxetine HCl [Fluoxetine HCl] 40 mg PO DAILY 12/16/17 [History] Levothyroxine [Synthroid] 100 mcg PO 0630 12/16/17 [History] Ondansetron ODT [Zofran ODT] 4 mg PO DAILY PRN 12/16/17 [History] Potassium Chloride 20 meq PO BID 12/16/17 [History] Quetiapine Fumarate [Seroquel] 50 mg PO HS 12/16/17 [History] Spironolactone [Aldactone] 50 mg PO BID 12/16/17 [History] Topiramate [Topamax] 50 mg PO BID 12/16/17 [History] Trazodone HCl 300 mg PO HS 12/16/17 [History] Warfarin Sodium [Warfarin Sodium] 2.5 mg PO DAILY 12/16/17 [History] raNITIdine HCl [Ranitidine HCl] 300 mg PO DAILY 12/16/17 [History] 3 Allergy/AdvReac Type Severity Reaction Status Date / Time divalproex sodium AdvReac See Verified 12/16/17 07:46 [From Depakote] Comments phenytoin [From Dilantin] AdvReac Hives Verified 12/16/17 07:46 ROS unobtainable: due to mental status All Systems: The remainder of the systems were reviewed and are negative Physical Examination - Vital Signs Vital Signs: Initial Vital Signs Temp Pulse Resp BP Pulse Ox 98.8 F 102 16 113/70 93 12/16/17 05:08 12/16/17 05:08 12/16/17 05:08 12/16/17 05:08 12/16/17 05:08 - Exam Exam: Mental status: patient is not alert or oriented to person, place, or time. Does not respond verbally or non-verbally to commands, does not exhibit signs of awareness to surroundings. Cranial nerves: Pupils are round, equal, and reactive to light. Patient does have small and random eye movements, however does not track moving objects. No facial droop. Unable to assess remaining cranial nerves due to patient mental status. Motor exam: unable to assess due to mental status. Sensory: Grimace and withdraws all four extremities to pain stimuli. Reflexes: Plantar reflex is down going, corneal reflex intact, biceps 1+, triceps 1+, brachioradials 1+, patellar 1+, Achilles 1+. Cerebellar: Unable to assess due to patient mental status. No visible tremor at rest. Results - Laboratory Findings CBC and BMP: 12/17/17 13:24 12/17/17 03:52 Abnormal lab findings: Abnormal lab results RBC 3.16 M/mcL (3.82-4.97) L 12/17/17 03:52 Hgb 10.5 g/dL (11.5-15.4) L 12/17/17 13:24 Hct 31.1 % (35.3-44.9) L 12/17/17 13:24 Plt Count 32 K/mcL (140-400) L 12/17/17 03:52 MPV 12.5 fL (9.4-12.4) H 12/17/17 03:52 Band Neutrophils % 8.0 % (0-4) H 12/17/17 03:52 Metamyelocytes % 2.0 % (0) H 12/16/17 05:27 Lymphocytes # 0.4 K/mcL (0.6-4.6) L 12/17/17 03:52 Platelet Estimate Decreased (Normal) L 12/17/17 03:52 PT 57.5 Seconds (9.4-12.1) H* 12/17/17 10:47 INR 5.1 H* 12/17/17 10:47 APTT 54.4 Seconds (26.0-36.0) H 12/17/17 03:52 ABG pCO2 28 mmHg (35-45) L 12/17/17 11:57 ABG pO2 122 mmHg (85-104) H 12/17/17 11:57 ABG HCO3 17 mEq/L (21-27) L 12/17/17 11:57 ABG Total CO2 18 mEq/L (20-26) L 12/17/17 11:57 ABG O2 Saturation 99 % (95-98) H 12/17/17 11:57 ABG Base Excess -7 mEq/L (-2 to 3) L 12/17/17 11:57 Chloride 112 mEq/L (98-107) H 12/17/17 03:52 Carbon Dioxide 18 mEq/L (23-29) L 12/17/17 03:52 BUN 25 mg/dL (6-20) H 12/17/17 03:52 Creatinine 1.25 mg/dL (0.60-1.20) H 12/17/17 03:52 Est GFR ( Amer) 54 (> 60) L 12/17/17 03:52 Est GFR (Non-Af Amer) 44 (> 60) L 12/17/17 03:52 Glucose 113 mg/dL (70-105) H 12/17/17 03:52 POC Glucose 104 mg/dL (70-99) H 12/17/17 00:16 Calcium 8.3 mg/dL (8.6-10.3) L 12/17/17 03:52 Direct Bilirubin 0.4 mg/dL (0.0-0.2) H 12/16/17 05:27 Alkaline Phosphatase 111 Units/L (34-104) H 12/16/17 05:27 Serum Total Protein 6.2 g/dL (6.4-8.9) L 12/16/17 05:27 Albumin 3.2 g/dL (3.5-5.7) L 12/16/17 05:27 Urine Clarity Cloudy (Clear) A 12/16/17 06:15 Urine Blood Small (Negative) H 12/16/17 06:15 Ur Leukocyte Esterase Small (Negative) H 12/16/17 06:15 Urine Microscopic WBC 3-5 per hpf (0-3) H 12/16/17 06:15 Ur Squamous Epith Cells Many per lpf (None-Few) H 12/16/17 06:15 Urine Yeast Many per hpf (None Seen) H 12/16/17 06:15 Ur Culture Indicated? NO. (NO) A 12/16/17 06:15 Consult Discharge Plan - Plan Referrals: Kerry Farris MD [Primary Care Provider] - <GwenJay JayGriffith I - Last Filed: 12/17/17 15:51> Date of Encounter: 12/17/17 Assessment and Plan (1) Encephalopathy Current Visit: Yes Status: Acute Pt was seen and examined, my medical decision was reviewed with the Resident Physician, I agree with the documented findings, disposition and treatment plas as described except to the extent set forth below Patient is a 57-year-old female who is one day status post left ureteral stone extraction, left retrograde pyelogram and left ureteral stent placement. Noted to be unresponsive to any verbal stimuli without any focal lateralizing sign at the same time no history to be suggestive of any seizures. Patient already had an MRI of the brain that did not show any acute abnormality in particularly no evidence of any acute infarct or bleed On examination Patient is awake eyes open but did not respond to any verbal stimuli Pupils are equal and reactive no facial asymmetry Minimal withdrawal to the deep pain she does seems to grimace on the deep pain in all 4 extremities No spontaneous movement no withdrawal Reflexes symmetrical and downgoing toes Metabolic toxic encephalopathy RECOMMENDATIONS: Considering this patient's symptoms history and exam findings seemed like she is been having significant encephalopathic the picture likely related to underlying infection and metabolic abnormalities. No evidence of acute stroke on MRI of the brain. She does have a remote history of seizures but did not have any seizures for long period of time she is been on Topamax for it. We will get an EEG to make sure she does not have any nonconvulsive seizures are any other interictal abnormalities. If all workup is negative patient would probably need a spinal tap but at the moment it to be contraindicated due to her elevated INR 5.1 and also with low platelet that seems to be undetectable. Suggest to continue on broad-spectrum antibiotics and treat symptomatically or any underlying infectious and metabolic abnormalities. One other thing to keep it in mind that may have to change her from long-term treatment with the Topamax as it could cause kidney stones individuals who has tendency of farming the kidney stones so in her case perhaps need to change to a different anticonvulsive medication later on when she is more stable Plan discussed with the primary team Nacho Hidalgo MD History of Present Illness HPI: Ms. Jackson is a 57 year old female All Systems: The remainder of the systems were reviewed and are negative Physical Examination - Vital Signs Vital Signs: Initial Vital Signs Temp Pulse Resp BP Pulse Ox 98.8 F 102 16 113/70 93 12/16/17 05:08 12/16/17 05:08 12/16/17 05:08 12/16/17 05:08 12/16/17 05:08 Results - Laboratory Findings CBC and BMP: 12/17/17 13:24 12/17/17 03:52 Abnormal lab findings: Abnormal lab results RBC 3.16 M/mcL (3.82-4.97) L 12/17/17 03:52 Hgb 10.5 g/dL (11.5-15.4) L 12/17/17 13:24 Hct 31.1 % (35.3-44.9) L 12/17/17 13:24 Plt Count 32 K/mcL (140-400) L 12/17/17 03:52 MPV 12.5 fL (9.4-12.4) H 12/17/17 03:52 Band Neutrophils % 8.0 % (0-4) H 12/17/17 03:52 Metamyelocytes % 2.0 % (0) H 12/16/17 05:27 Lymphocytes # 0.4 K/mcL (0.6-4.6) L 12/17/17 03:52 Platelet Estimate Decreased (Normal) L 12/17/17 03:52 PT 57.5 Seconds (9.4-12.1) H* 12/17/17 10:47 INR 5.1 H* 12/17/17 10:47 APTT 54.4 Seconds (26.0-36.0) H 12/17/17 03:52 ABG pCO2 28 mmHg (35-45) L 12/17/17 11:57 ABG pO2 122 mmHg (85-104) H 12/17/17 11:57 ABG HCO3 17 mEq/L (21-27) L 12/17/17 11:57 ABG Total CO2 18 mEq/L (20-26) L 12/17/17 11:57 ABG O2 Saturation 99 % (95-98) H 12/17/17 11:57 ABG Base Excess -7 mEq/L (-2 to 3) L 12/17/17 11:57 Chloride 112 mEq/L (98-107) H 12/17/17 03:52 Carbon Dioxide 18 mEq/L (23-29) L 12/17/17 03:52 BUN 25 mg/dL (6-20) H 12/17/17 03:52 Creatinine 1.25 mg/dL (0.60-1.20) H 12/17/17 03:52 Est GFR ( Amer) 54 (> 60) L 12/17/17 03:52 Est GFR (Non-Af Amer) 44 (> 60) L 12/17/17 03:52 Glucose 113 mg/dL (70-105) H 12/17/17 03:52 POC Glucose 104 mg/dL (70-99) H 12/17/17 00:16 Calcium 8.3 mg/dL (8.6-10.3) L 12/17/17 03:52 Direct Bilirubin 0.4 mg/dL (0.0-0.2) H 12/16/17 05:27 Alkaline Phosphatase 111 Units/L (34-104) H 12/16/17 05:27 Serum Total Protein 6.2 g/dL (6.4-8.9) L 12/16/17 05:27 Albumin 3.2 g/dL (3.5-5.7) L 12/16/17 05:27 Urine Clarity Cloudy (Clear) A 12/16/17 06:15 Urine Blood Small (Negative) H 12/16/17 06:15 Ur Leukocyte Esterase Small (Negative) H 12/16/17 06:15 Urine Microscopic WBC 3-5 per hpf (0-3) H 12/16/17 06:15 Ur Squamous Epith Cells Many per lpf (None-Few) H 12/16/17 06:15 Urine Yeast Many per hpf (None Seen) H 12/16/17 06:15 Ur Culture Indicated? NO. (NO) A 12/16/17 06:15
[2017-12-17] MEDS ORDERED: 0.9 % Sodium Chloride 250 ML ONE (15:21)
--- NOTE | 2017-12-17 16:07 | EEG/EMG/Oth Biometrics Report ---
EEG Procedure Report Date of procedure: 12/17/17 EEG Procedure: Routine EEG Procedure Note: Routine 21-channel digital EEG was obtained to rule out any seizure activity or focal abnormalities. FINDINGS: Background rhythm during awake stage shows 4/6 HTZ delta activity in the anterior and posterior regions. No [id number] discharges or any lateralizing abnormalities are seen. Almost constant EMG artifacts and tremor artifacts are noted. Photic stimulation did not produce any abnormalities. Stage II sleep was not observed. IMPRESSION: Abnormal study, no clear paroxysmal activities or epileptiform discharges were seen. Prominent delta ctivity in the anterior /posterior regions, as seen in diffuse cortical dysfunction, consistent with Encephalopathy clinical correlation is suggested
[2017-12-17 16:41] LABS: Folate 3.4 ng/mL (3.0-16.0)
[2017-12-17 18:33] LABS: INR 4.1
[2017-12-17 18:48] LABS: Prothrombin Time 46.5 Seconds (9.4-12.1)
[2017-12-17 20:20] LABS: Hematocrit 29.7 % (35.3-44.9)
[2017-12-17 21:35] LABS: Bilirubin,Urine Negative (Negative); Blood,Urine Moderate (Negative); Glucose,Urine (UA) Normal (Normal); Ketones,Urine Trace mg/dL (Negative); Leukocyte Esterase,Urine Large (Negative); Nitrite,Urine Negative (Negative); Protein,Urine 30 mg/dL (Neg-Trace)
[2017-12-17 21:36] LABS: Clarity,Urine Cloudy (Clear); Color,Urine Amber (Yellow)
[2017-12-18] MEDS ORDERED: Haloperidol Lactate 5 MG/ML VIAL IVP ONE (04:48)
[2017-12-18 05:57] LABS: Hematocrit 30.9 % (35.3-44.9); Hemoglobin 10.5 g/dL (11.5-15.4)
[2017-12-18 06:11] LABS: Phosphorous 1.1 mg/dL (2.7-4.5)
[2017-12-18 06:18] LABS: Prothrombin Time 69.6 Seconds (9.4-12.1)
[2017-12-18 06:19] LABS: INR 6.2
[2017-12-18 07:51] LABS: BUN/Creatinine Ratio 37 (6-26); Blood Urea Nitrogen 35 mg/dL (6-20); Calcium 8.6 mg/dL (8.6-10.3); Carbon Dioxide 12 mEq/L (23-29); Chloride 118 mEq/L (98-107); Glucose 95 mg/dL (70-105); Osmolality,Calculated 298 (280-300); Potassium 3.4 mEq/L (3.5-5.1); Sodium 140 mEq/L (136-145); eGFR For African Americans > 60 (> 60); eGFR For Non-African Americans > 60 (> 60)
[2017-12-18] MEDS ORDERED: *HR* LORazepam 2 MG/ML VIAL IVP ONE (08:31)
[2017-12-18] MEDS ORDERED: *HR* LORazepam 2 MG/ML VIAL ONE (08:33)
[2017-12-18 08:58] LABS: Mean Corpuscular HGB Conc 33.7 g/dL (31.6-35.5); Mean Corpuscular Hemoglobin 31.9 pg (28.0-33.3); Mean Corpuscular Volume 94.8 fL (83.0-100.0); Mean Platelet Volume 11.7 fL (9.4-12.4); Red Blood Count 3.29 M/mcL (3.82-4.97); Red Cell Distribution Width 14.6 % (11.5-14.5)
[2017-12-18] MEDS: Famotidine 20 MG TABLET PO SCH (08:58)
[2017-12-18] MEDS: FLUoxetine 20 MG CAPSULE PO SCH (08:58)
[2017-12-18] MEDS: Topiramate 25 MG TABLET PO SCH ×2 (08:58→20:34)
[2017-12-18 09:00] LABS: Platelet Count 50 K/mcL (140-400)
[2017-12-18] MEDS: BuPROPion SR (12 HR) 150 MG TABLET PO SCH ×2 (09:06→13:35)
[2017-12-18 09:29] LABS: Anisocytosis 1+ (Not Present); Lymphocytes # 1.1 K/mcL (0.6-4.6); Monocytes # 0.5 K/mcL (0.0-1.3); Neutrophils # 11.8 K/mcL (1.6-8.9); Platelet Estimate Decreased (Normal)
--- NOTE | 2017-12-18 09:36 | Neurology Progress Note ---
Date of Encounter: 12/18/17 Time of Encounter: 08:20 Assessment and Plan (1) Encephalopathy Current Visit: Yes Status: Acute Patient continued to be confused and agitated at times has received some Haldol this morning noted to be more confused after that. No focal motor deficit on examination. EEG did not show any convulsive seizures generalized slowing consistent with metabolic toxic encephalopathy. Her INR is more elevated now she is been receiving vitamin K perhaps she may need FFP Platelet count is also undetectable very low Her symptoms seems to be more of generalized metabolic toxic encephalopathy likely related to underlying infection Cannot completely exclude [employer] involvement Suggest to continue broad-spectrum antibiotics Due to high INR and very low platelet count spinal tap cannot be performed Suggest repeating a CT scan of the head especially with these increasing confusion and elevated INR Plan discussed with the primary team Subjective Interval history: Patient remain confused to agitated at times so this morning noted to be less confused according to the she talk to him and asking to come over to the hospital but after that she Became more confused and more agitated. She is still on antibiotics repeat UA remains abnormal INR is 6.2 now. And platelets are still very low Objective - Constitutional Vitals: Temp Pulse Resp BP Pulse Ox 98.2 F 90 18 128/78 93 12/18/17 07:05 12/18/17 07:05 12/18/17 07:05 12/18/17 07:05 12/18/17 07:05 - Neurological Exam Mental Status Examination: Present: awake, does not follow commands, opens eyes to noxious stimulation, localizes noxious stimulation Cranial nerve examination: Present: PERRL, EOMI, no facial asymmetry is present (Limited neurological examination patient is awake but confused did not follow any commands moving all 4 extremities equally agitated at times) - VTE Documentation of Mechanical Device: Intermittent pneumatic compression device Results - Laboratory Findings CBC and BMP: 12/18/17 05:39 12/18/17 05:39 Abnormal lab findings: Abnormal lab results WBC 13.4 K/mcL (4.3-11.1) H 12/18/17 05:39 RBC 3.29 M/mcL (3.82-4.97) L 12/18/17 05:39 Hgb 10.5 g/dL (11.5-15.4) L 12/18/17 05:39 Hct 30.9 % (35.3-44.9) L 12/18/17 05:39 RDW 14.6 % (11.5-14.5) H 12/18/17 05:39 Plt Count 50 K/mcL (140-400) L D 12/18/17 05:39 Band Neutrophils % 8.0 % (0-4) H 12/17/17 03:52 Metamyelocytes % 2.0 % (0) H 12/16/17 05:27 Neutrophils # 11.8 K/mcL (1.6-8.9) H 12/18/17 05:39 Platelet Estimate Decreased (Normal) L 12/18/17 05:39 Anisocytosis 1+ (Not Present) A 12/18/17 05:39 PT 69.6 Seconds (9.4-12.1) H* 12/18/17 05:39 INR 6.2 H* D 12/18/17 05:39 APTT 54.4 Seconds (26.0-36.0) H 12/17/17 03:52 ABG pCO2 28 mmHg (35-45) L 12/17/17 11:57 ABG pO2 122 mmHg (85-104) H 12/17/17 11:57 ABG HCO3 17 mEq/L (21-27) L 12/17/17 11:57 ABG Total CO2 18 mEq/L (20-26) L 12/17/17 11:57 ABG O2 Saturation 99 % (95-98) H 12/17/17 11:57 ABG Base Excess -7 mEq/L (-2 to 3) L 12/17/17 11:57 Potassium 3.4 mEq/L (3.5-5.1) L 12/18/17 05:39 Chloride 118 mEq/L (98-107) H 12/18/17 05:39 Carbon Dioxide 12 mEq/L (23-29) L 12/18/17 05:39 BUN 35 mg/dL (6-20) H 12/18/17 05:39 BUN/Creatinine Ratio 37 (6-26) H 12/18/17 05:39 Phosphorus 1.1 mg/dL (2.7-4.5) L 12/18/17 05:39 Direct Bilirubin 0.4 mg/dL (0.0-0.2) H 12/16/17 05:27 Alkaline Phosphatase 111 Units/L (34-104) H 12/16/17 05:27 Serum Total Protein 6.2 g/dL (6.4-8.9) L 12/16/17 05:27 Albumin 3.2 g/dL (3.5-5.7) L 12/16/17 05:27 TSH 5.905 mcIU/mL (0.340-5.600) H 12/17/17 15:43 Urine Color Reina (Yellow) A 12/17/17 21:15 Urine Clarity Cloudy (Clear) A 12/17/17 21:15 Urine Protein 30 mg/dL (Neg-Trace) H 12/17/17 21:15 Urine Ketones Trace mg/dL (Negative) H 12/17/17 21:15 Urine Blood Moderate (Negative) H 12/17/17 21:15 Urine Urobilinogen 4.0 mg/dL (Normal) H 12/17/17 21:15 Ur Leukocyte Esterase Large (Negative) H 12/17/17 21:15 Urine Microscopic WBC 3-5 per hpf (0-3) H 12/16/17 06:15 Ur Squamous Epith Cells Many per lpf (None-Few) H 12/16/17 06:15 Urine Yeast Many per hpf (None Seen) H 12/16/17 06:15 Ur Culture Indicated? YES (NO) A 12/17/17 21:15 Consult Discharge Plan - Plan Referrals: Kerry Farris MD [Primary Care Provider] -
[2017-12-18 09:47] LABS: Hematocrit 33.1 % (35.3-44.9); Hemoglobin 11.1 g/dL (11.5-15.4)
--- NOTE | 2017-12-18 10:29 | Internal Med Progress Note ---
Date of Encounter: 12/18/17 Time of Encounter: 10:27 - Assessment and plan (1) Sepsis Current Visit: Yes Status: Acute Assessment and plan: Presented with septic picture, fevers, tachycardia, end organ damage, bandemia greater than 10% and altered mental status Sepsis secondary to pneumonia versus UTI Elevated INR and thrombocytopenia in the setting of sepsis Repeat INR this afternoon, monitor platelets, monitor H&H Leukocytosis with WBC 13.4 today Blood cultures preliminary no growth Urine cultures preliminary no growth Currently on Zosyn, continue Infectious disease following, appreciate recommendations Repeat labs daily Qualifiers: Qualified Code(s): A41.9 - Sepsis, unspecified organism (2) Encephalopathy Current Visit: Yes Status: Acute Assessment and plan: Acute encephaolopathy Suspect infectious process versus metabolic wbc increased to 13 today Consult to infectious disease for further evaluation and recommendations; appreciate recommendations Discontinue Zithromax, and Rocephin. Start Zosyn Patient is no longer aphasic, but was agitated this morning however, has improved throughout the day. However, she remains slightly confused Repeat CT of head completed this afternoon found to be negative for acute intracranial process Start 2 mg Ativan IV push every 4 when necessary for agitation, avoid Haldol as the patient has a history of seizures and this may lower seizure threshold Brain MRI without acute process Initial Head CT without acute process EEG-abnormal study, no clear paroxysmal activities or epileptiform discharges seen. Prominent delta activity in the anterior/posterior regions seen has diffuse cortical dysfunction and consistent with encephalopathy Neurology seeing in consultation, appreciate recommendations B12- 422, folate- 3.4, tsh- 5.905 Amonia 38 yesterday, and 30 today if no improvement may require lumbar puncture; will need reversal of INR to do so. She is getting 2 of FFP and has received 5 of IV vitamin-K Continue neurochecks q2h (3) Hydronephrosis Current Visit: Yes Status: Acute Assessment and plan: Hydronephrosis secondary to left ureteral stone Underwent left ureteral stone extraction, left retrograde pyelogram electrical stent placement Adequate urine output Tellez catheter with dark red blood, small clots visible Urology following in consultation Qualifiers: Hydronephrosis type: with ureteral calculous obstruction Qualified Code(s) : N13.2 - Hydronephrosis with renal and ureteral calculous obstruction (4) Left ureteral calculus Current Visit: Yes Status: Acute Assessment and plan: As in hydronephrosis s/p left ureteral stone extraction left retrograde pyelogram and left ureteral stent placement Urology following consultation, thank you Continuing to have adequate urinary output Should be noted that the patient does have a supratherapeutic INR Monitor for signs of increased blood in urine (5) PNA (pneumonia) Current Visit: Yes Status: Acute Assessment and plan: CXR with PNA vs atelectasis Secondary to unknown organism Avoid fluorquinolones as they lower seizure threshold in a patient with known hx of seizures Her symptoms said to have started after being started on ciprofloxacin Discontinue Rocephin and Zithromax, continue Zosyn ID following d/t suspicion of infectious encephalopathy- defer to ID for abx adjustments Blood cultures preliminary no growth to date Repeat CXR, respiratory infection panel, Legionella and strep antigen she does not appear to be septic as she is afebrile, normal sinus rhythm and hemodynamically stable Qualifiers: Pneumonia type: due to unspecified organism Laterality: right Lung location: lower lobe of lung Qualified Code(s): J18.1 - Lobar pneumonia, unspecified organism (6) Thrombocytopenia Current Visit: Yes Status: Acute Assessment and plan: Unknown cause consult hematology/oncology for further evaluations. Appreciate recommendations Persistent thrombocytopenia, PLT 50 No current known etiology; likely d/t current illness PLT was WNL 11/2017, continue to monitor closely strict bed rest Recheck CBC this afternoon Continue to monitor for S/sx of bleeding (7) Acute kidney injury Current Visit: Yes Status: Acute Assessment and plan: Likely combination of pre-renal and post-renal with evidence of uretreal stone with L hydronephrosis Renal function improved with IVF and stone removal GFR >60 today, Sr Cr 0.95 Patient has a background CKD III Continue IVF hydration Continue to monitor electrolytes Avoid nephrotoxins (8) Supratherapeutic INR Current Visit: Yes Status: Acute Assessment and plan: INR remains supratherapeutic at 6.2 today dark red blood in the Tellez catheter S/P renal calculi removal, small clots noted Continue to Hold Coumadin Monitor H&H closely every 8 hours, recheck CBC without diff at 1400 as well as INR Repeat INR daily; when improved consult pharmacy to manage coumadin Give 2 of FFP and 5 of IV vitamin K consult hematology oncology for evaluation of thrombocytopenia and elevated INR given her current condition and h/o antiphospholipid syndrome appreciate recommendations (9) Hypophosphatemia Current Visit: Yes Status: Acute Assessment and plan: Phosphate of 1.1 12/17/17, replete as necessary continue to monitor (10) Hypokalemia Current Visit: Yes Status: Acute Assessment and plan: Hypokalemic on arrival, replaced orally On potassium supplementation at home Holding on supplementation due to NILSA Monitor potassium daily, serum potassium 4.1 today (11) Antiphospholipid syndrome Current Visit: Yes Status: Chronic Assessment and plan: continue home meds Hold warfarin for now 2/2 supratherapeutic INR (12) UTI (urinary tract infection) Current Visit: Yes Status: Acute Assessment and plan: suspect UTI in the setting of hydronephrosis, left renal calculi organism unknown send urine for culture treat with ceftriaxone Follow urine cultures Qualifiers: Urinary tract infection type: acute cystitis Hematuria presence: with hematuria Qualified Code(s): N30.01 - Acute cystitis with hematuria (13) Seizure disorder Current Visit: Yes Status: Chronic Assessment and plan: continue home meds neurology seeing in consultation; appreciate recommendations - Time Spent With Patient Total time spent is greater than 50% in coordination of care (as documented) at patient's floor/unit and/or counseling patient: Greater than 35 minutes - Subjective Interval history: Seen and examined at bedside today. FAmily at bedside. Patient is confused and agitated and attempting to climb out of bed. She is unable to answer simple questions or chest pain and exam. Her reports that this began to occur around 0400 this morning - Constitutional Vitals: Temp Pulse Resp BP Pulse Ox 98.2 F 90 18 128/78 93 12/18/17 07:05 12/18/17 07:05 12/18/17 07:05 12/18/17 07:05 12/18/17 07:05 General appearance: Present: A&O X 1, disheveled, mild distress. Absent: cooperative, answers questions appropriately - Head Head exam: Present: atraumatic, normocephalic - Eye Eye exam: Present: PERRL, conjuntiva pink, sclera anicteric - Neck Neck exam general surgery: Present: trachea midline. Absent: lymphadenopathy - Respiratory Respiratory exam: Present: CTAB. Absent: accessory muscle use, chest wall tenderness, prolonged expiratory phase, rales, respiratory distress, rhonchi, wheezes, tachypnea - Cardiovascular Cardiovascular exam: Present: RRR, +S1, +S2. Absent: diastolic murmur, gallop, rubs, systolic murmur, tachycardia - GI/Abdominal GI/Abdominal exam: Present: normal bowel sounds, soft, no peritoneal signs. Absent: distended, firm, guarding, tenderness - Extremities Exam Extremities exam: Present: normal capillary refill, normal inspection, warm, radial pulses palpable and symmetrical. Absent: calf tenderness, cyanotic, pedal edema, tenderness - Back Exam Back exam: Absent: CVA tenderness (L), CVA tenderness (R) - Neurological Exam Neurological exam: Present: alert, altered Additional comments: confused - Expanded Neurological Exam Patient oriented to: Present: person Neuro motor strength exam: LUE: 5, RUE: 5, LLE: 5, RLE: 5 Coma Scale Eye Opening: Spontaneous Coma Scale Motor Response: Withdraws to Pain Coma Scale Verbal Response: Confused Coma Scale Total: 12 - Psychiatric Psychiatric exam: Present: agitated - Skin Skin exam: Present: dry, intact Internal Medicine: Result - Labs CBC & Chem 7: 12/18/17 09:29 12/18/17 05:39 Labs: Short CBC 12/17/17 12/17/17 12/18/17 Range/Units 13:24 20:02 05:39 WBC 13.4 H (4.3-11.1) K/mcL Hgb 10.5 L 10.0 L 10.5 L (11.5-15.4) g/dL Hct 31.1 L 29.7 L 30.9 L (35.3-44.9) % Plt Count 50 L D (140-400) K/mcL Neutrophils # 11.8 H (1.6-8.9) K/mcL 12/18/17 Range/Units 09:29 WBC (4.3-11.1) K/mcL Hgb 11.1 L (11.5-15.4) g/dL Hct 33.1 L (35.3-44.9) % Plt Count (140-400) K/mcL Neutrophils # (1.6-8.9) K/mcL BMP 12/18/17 05:39 Sodium 140 Potassium 3.4 L Chloride 118 H Carbon Dioxide 12 L BUN 35 H Creatinine 0.95 Glucose 95 Calcium 8.6 Urine 12/17/17 Range/Units 21:15 Urine Color Reina A (Yellow) Urine Clarity Cloudy A (Clear) Urine pH 7.0 (5.0-8.0) pH Units Ur Specific [place] 1.020 (1.010-1.025) Urine Protein 30 H (Neg-Trace) mg/dL Urine Glucose (UA) Normal (Normal) mg/dL - ABG Interpretation ABG results: ABG ABG pH 7.39 pH Units (7.32-7.45) 12/17/17 11:57 ABG pCO2 28 mmHg (35-45) L 12/17/17 11:57 ABG pO2 122 mmHg (85-104) H 12/17/17 11:57 ABG O2 Saturation 99 % (95-98) H 12/17/17 11:57 PT/INR, D-dimer PT 69.6 Seconds (9.4-12.1) H* 12/18/17 05:39 - VTE Documentation of Mechanical Device: Intermittent pneumatic compression device Consult Discharge Plan - Plan Referrals: Keryr Farris MD [Primary Care Provider] -
[2017-12-18] MEDS ORDERED: *HR* LORazepam 2 MG/ML VIAL IVP PRN (10:42)
[2017-12-18] MEDS ORDERED: Potassium Phosphate 44 MEQ in 0.9 % Sodium Chloride 250 ML IVPB ONE (10:53)
--- NOTE | 2017-12-18 11:29 | Oncology Inp Consult Note ---
<Major Hollingsworth - Last Filed: 12/18/17 15:33> Date of Encounter: 12/18/17 Time of Encounter: 11:25 Assessment and Plan (1) Elevated INR Status: Acute Assessment and plan: INR 6.2. INR is elevated from 4.1, while the patient has been off Coumadin for 72 hours. Elevation INR likely secondary to sepsis picture. Continue to hold Coumadin and will reevaluate if patient's INR does not improve. - Primary team is provided 2 of FFP and 5 mg vitamin K - Recheck INR this afternoon - Monitor with a.m. labs replace of FFP as necessary - We will avoid subtherapeutic INR as the patient has history of antiphospholipid syndrome and history of clotting. (2) Antiphospholipid syndrome Status: Chronic Assessment and plan: Patient has a history of antiphospholipid syndrome, first diagnosed in 2005 at which time she had a left atrial thrombus and has been on therapeutic Coumadin since. Family denies any known history of blood clots since diagnosis. Patient has baseline subcortical dementia suspected secondary to antiphospholipid syndrome. Family members state that her mental status has been stable since diagnosis and treatment. - Plan to avoid subtherapeutic INR but will improve her current INR of 6.2, continue to hold Coumadin. (3) Thrombocytopenia Status: Acute Assessment and plan: Follow cytopenia with a platelet count of 32 yesterday currently 50. Review of medical records demonstrate's last daily counts and November 2017 was 141, patient may have baseline thrombocytopenia. Patient does have a history of ITP but has been stable without recurrence for multiple years. She does have multiple medications that may be tomas thrombocytopenia, with currently suspected superimposed thrombocytopenia in the setting of sepsis. - Platelets improved since yesterday continue to monitor - Low suspicion for TTP but will obtain fibrinogen level and blood smear. Low suspicion as patient's mental status has improved and platelet count improving without intervention. - Consider replacement if patient's platelet count falls below 10,000. (4) Altered mental status, unspecified Status: Acute Assessment and plan: Patient's presented with altered mental status found to have obstructing left- sided ureter stone with associated pyelonephritis. Patient also had coinciding acute kidney injury with a creatinine of 1.99, GFR of 26. Blood gas demonstrated metabolic acidosis with respiratory alkalosis, Anion gap of 14. EMG performed demonstrated wave pattern associated with encephalopathy, brain MRI and head CT without any acute findings. Patient is currently treated for sepsis secondary to pyelonephritis with clinical picture improving. Mental status today 12/18/2017 improved according to family, she does have some mild confusion but answers questions appropriately and follows commands appropriately. Patient has worsening metabolic acidosis and hyperchloremic findings on chemistry panel likely secondary to normal saline. - Patient clinically improving, mental status improving. AMS likely secondary to mixed picture; sepsis, acute kidney injury while the patient is taking multiple mood stabilizers and sedating medications and metabolic acidosis. - Continue to correct underlining metabolic derangements, treat sepsis. Management per primary team Qualifiers: Altered mental status type: unspecified Qualified Code(s): R41.82 - Altered mental status, unspecified (5) Sepsis Status: Acute Assessment and plan: Patient presented with altered mental status, end organ damage, pyuria and obstructing left ureter stone. - Since presentation has undergone intervention, antibiotic therapy and clinically improving. - Likely contributing to patient's elevated INR, thrombocytopenia - Continue to treat source of sepsis Qualifiers: Qualified Code(s): A41.9 - Sepsis, unspecified organism (6) Metabolic acidosis Status: Acute Assessment and plan: Patient currently has a remote acidosis with bicarbonate of 12, chloride of 118. Evaluation chemistries metabolic acidosis with respiratory alkalosis. Elevated chloride likely secondary to normal saline solution. - Continue to treat underlying metabolic derangements in the setting of sepsis, per primary team. - Recommend using a less chloride rich IV solution for rehydration. - Management per primary team. - Data of Consult Consult date: 12/18/17 Requesting Physician: Angel Mittal MD Primary Care Provider: Kerry Farris MD - Consult Narrative Reason for consult: Elevation in INR and thrombocytopenia History of present illness: Ms. Jackson is a 57 year old female with subcoritical cognitive deficits, HLD, HTN , CKD III, Seizure disorder, Hypothyroid, Anti-phospholipid syndrome on chronic Warfarin presented to the emergency department on Thursday afternoon with altered mental status. Hx provided by family mainly at bedside. She started having abdominal discomfort associated with nausea on Thursday and was seen by her PCP and treated for a UTI. She had been stable performing her normal ADLs without defect or concerning symptoms until Thursday evening. She woke her complaining of abdominal discomfort and was confused saying something was not right. By the time she arrived in the emergency department she had further cognitive decline and became hard to arouse. She was found to have left sided hydronephrosis secondary to a 5mm distal ureteral calculus and clinical picture of pylonephritis CXR demonstrated right basilar atelectasis vs pneumonia. She was seen by Urology and underwent left ureteroscope stone extraction, stent placement and retrograde pyelogram. Inital laboratory results demonstrated NILSA with creatinine 1.99, reduced GFR, elevated alk phos, low phosphorus at 1.4, initial INR 6.0 and ABG pH 7.47 pCO2 24 bicarb 18. Initial antibiotics included Levaquin, Rocephin and Zithromax. Cognitive status did not improve and neurology was consulted for evaluation. EEG demonstrated pattern consistent with Encephalopathy. All oral medications were held including mood stabilizers, sleeping aids and Coumadin since admission. Her INR raised from 4.1 (12/17) to 6.2 (12/18) with correlating elevation in PT. Her thrombocytopenia worsened to 32 (12/17) and is 50 (12/18). According to her today is the first time she answered questions or responded appropriately since admission. Ms. Jackson says she continues to have some left flank discomfort but denies any light headedness, fevers, chilling, trouble with sight, light sensitivity, neck pain, chest discomfort, shortness of breath, palpitations, abdominal pain, n/v. Past Med Surg Social Fam HX - Past Medical History Medical history: dementia, hyperlipidemia, hypertension, renal disease, seizures , thyroid disease, TIA Additional medical history: vascular dementia, antiphospholid syndrome Psychiatric history: anxiety, depression - Past Surgical History Surgical History: , other Additional surgical history: colonoscopy, ablation - Social History Smoking Status: Never smoker Alcohol use: none Drug use: none - Family History Father Living Status: Age at : 72 Cause of : colon cancer Hx Family Cardiac Disorders: No Hx Family Respiratory Disorders: No Hx Family Cancer: Yes (colon cancer) Hx Family GI Disorders: No Hx Family Genitourinary Disorders: No Hx Family Endocrine Disorder: No Hx Family Musculoskeletal Disorders: No Hx Family Neuromuscular Disorders: No Hx Family Neurologic Disorders: No Hx Family HEENT Disorders: No Hx Family Autoimmune Disorders: No Hx Family Reproductive Disorders: No Hx Family Psychosocial Disorders: No Hx Family Medical Disorders: No Mother Hx Family Cardiac Disorders: No Hx Family Respiratory Disorders: No Hx Family Cancer: No Hx Family GI Disorders: No Hx Family Genitourinary Disorders: No Hx Family Endocrine Disorder: No Hx Family Musculoskeletal Disorders: No Hx Family Neuromuscular Disorders: No Hx Family Neurologic Disorders: No Hx Family HEENT Disorders: No Hx Family Autoimmune Disorders: No Hx Family Reproductive Disorders: No Hx Family Psychosocial Disorders: No Hx Family Medical Disorders: No Medications and Allergies Atorvastatin Calcium [Lipitor] 20 mg PO HS 12/16/17 [History] BuPROPion SR (12 HR) [Wellbutrin SR] 150 mg PO 1200 12/16/17 [History] BuPROPion SR (12 HR) [Wellbutrin SR] 300 mg PO QAM 12/16/17 [History] Calcium Carbonate [Calcium] 500 mg PO DAILY 12/16/17 [History] Ciprofloxacin HCl [Cipro] 500 mg PO BID 12/16/17 [History] FLUoxetine HCl [Fluoxetine HCl] 40 mg PO DAILY 12/16/17 [History] Levothyroxine [Synthroid] 100 mcg PO 0630 12/16/17 [History] Ondansetron ODT [Zofran ODT] 4 mg PO DAILY PRN 12/16/17 [History] Potassium Chloride 20 meq PO BID 12/16/17 [History] Quetiapine Fumarate [Seroquel] 50 mg PO HS 12/16/17 [History] Spironolactone [Aldactone] 50 mg PO BID 12/16/17 [History] Topiramate [Topamax] 50 mg PO BID 12/16/17 [History] Trazodone HCl 300 mg PO HS 12/16/17 [History] Warfarin Sodium [Warfarin Sodium] 2.5 mg PO DAILY 12/16/17 [History] raNITIdine HCl [Ranitidine HCl] 300 mg PO DAILY 12/16/17 [History] 3 Allergy/AdvReac Type Severity Reaction Status Date / Time divalproex sodium AdvReac See Verified 12/16/17 07:46 [From Depakote] Comments phenytoin [From Dilantin] AdvReac Hives Verified 12/16/17 07:46 Constitutional: Present: fatigue, weakness. Absent: chills, fever(s), headache( s) Eyes: Absent: blurry vision, change in vision, decreased night vision, loss of vision, pain, photophobia Ears: Absent: ear pain Nose, mouth and throat: Present: dry mouth. Absent: mouth pain, sore throat Cardiovascular: Absent: chest pain, chest pain at rest, diaphoresis Respiratory: Absent: cough, dyspnea, hemoptysis, wheezing, chest congestion Gastrointestinal: Absent: abdominal pain, nausea, vomiting Genitourinary: Present: flank pain Musculoskeletal: Present: muscle weakness Neurological: Present: confusion Oncology - Exam - Constitutional Vitals: Temp Pulse Resp BP Pulse Ox 99.2 F 74 18 130/76 97 12/18/17 11:00 12/18/17 11:00 12/18/17 11:00 12/18/17 11:00 12/18/17 11:00 Exam: Gen. lethargic, after stimulation patient wakes and answers questions. She is oriented to person place and time but demonstrates confusion with events that happened in the last several days. HEENT: Normocephalic, atraumatic, pupils equal reactive to light, no scleral icterus, oral mucosa is dry, thrush. Neck supple trachea midline. Respiratory: Tachypnea, clear to auscultation all lung suarez Cardiac: Regular rate and rhythm positive S1-S2 no murmurs or gallops appreciated, radial pulses 2+ bilateral Abdominal exam: Soft, nontender to palpation, positive bowel sounds, no organomegaly appreciated on examination, no suprapubic tenderness. Patient does have some mild left flank tenderness to palpation. Extremities symmetric, 4 out of 5 muscle strength in upper and lower extremities bilaterally. Patient spontaneously moves extremities Neurologic: Mild confusion, mild sedation, cranial nerves 2-12 intact, speech is fluent, deep tendon reflexes 2+ in brachial, triceps, patellar and Achilles bilaterally. Finger to nose intact, no asterixis Oncology - Results Labs: 3 12/18/17 12/18/17 12/18/17 09:29 09:29 07:02 WBC RBC Hgb 11.1 L Hct 33.1 L MCV MCH MCHC RDW Plt Count MPV Immature Gran % Seg Neutrophils % Band Neutrophils % Lymphocytes % Monocytes % Eosinophils % Basophils % Neutrophils # Lymphocytes # Monocytes # Eosinophils # Basophils # Platelet Estimate Anisocytosis PT INR APTT Sample Site ABG pH ABG pCO2 ABG pO2 ABG HCO3 ABG Total CO2 ABG O2 Saturation ABG Base Excess Mason Test O2 Delivery Device Inspired O2 Sodium Potassium Chloride Carbon Dioxide BUN Creatinine Est GFR ( Amer) Est GFR (Non-Af Amer) BUN/Creatinine Ratio Glucose POC Glucose 75 Calculated Osmolality Calcium Phosphorus Magnesium Ammonia 30 Vitamin B12 Folate TSH Ur Specimen Adequacy Urine Color Urine Clarity Urine pH Ur Specific [place] Urine Protein Urine Glucose (UA) Urine Ketones Urine Blood Urine Nitrite Urine Bilirubin Urine Urobilinogen Ur Leukocyte Esterase Ur Culture Indicated? 3 12/18/17 12/18/17 12/18/17 05:39 05:39 05:39 WBC 13.4 H RBC 3.29 L Hgb 10.5 L Hct 30.9 L MCV 94.8 MCH 31.9 MCHC 33.7 RDW 14.6 H Plt Count 50 L D MPV 11.7 Immature Gran % Test Not Performed Seg Neutrophils % 88.0 Band Neutrophils % Lymphocytes % 8.0 Monocytes % 4.0 Eosinophils % Test Not Performed Basophils % Test Not Performed Neutrophils # 11.8 H Lymphocytes # 1.1 Monocytes # 0.5 Eosinophils # Test Not Performed Basophils # Test Not Performed Platelet Estimate Decreased L Anisocytosis 1+ A PT 69.6 H* INR 6.2 H* D APTT Sample Site ABG pH ABG pCO2 ABG pO2 ABG HCO3 ABG Total CO2 ABG O2 Saturation ABG Base Excess Mason Test O2 Delivery Device Inspired O2 Sodium 140 Potassium 3.4 L Chloride 118 H Carbon Dioxide 12 L BUN 35 H Creatinine 0.95 Est GFR ( Amer) > 60 Est GFR (Non-Af Amer) > 60 BUN/Creatinine Ratio 37 H Glucose 95 POC Glucose Calculated Osmolality 298 Calcium 8.6 Phosphorus 1.1 L Magnesium Ammonia Vitamin B12 Folate TSH Ur Specimen Adequacy Urine Color Urine Clarity Urine pH Ur Specific [place] Urine Protein Urine Glucose (UA) Urine Ketones Urine Blood Urine Nitrite Urine Bilirubin Urine Urobilinogen Ur Leukocyte Esterase Ur Culture Indicated? 3 12/18/17 12/17/17 12/17/17 01:08 21:15 20:02 WBC RBC Hgb 10.0 L Hct 29.7 L MCV MCH MCHC RDW Plt Count MPV Immature Gran % Seg Neutrophils % Band Neutrophils % Lymphocytes % Monocytes % Eosinophils % Basophils % Neutrophils # Lymphocytes # Monocytes # Eosinophils # Basophils # Platelet Estimate Anisocytosis PT INR APTT Sample Site ABG pH ABG pCO2 ABG pO2 ABG HCO3 ABG Total CO2 ABG O2 Saturation ABG Base Excess Mason Test O2 Delivery Device Inspired O2 Sodium Potassium Chloride Carbon Dioxide BUN Creatinine Est GFR ( Amer) Est GFR (Non-Af Amer) BUN/Creatinine Ratio Glucose POC Glucose 86 Calculated Osmolality Calcium Phosphorus Magnesium Ammonia Vitamin B12 Folate TSH Ur Specimen Adequacy [employer]IP[employer] 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 YES A 3 12/17/17 12/17/17 12/17/17 18:08 17:23 15:43 WBC RBC Hgb Hct MCV MCH MCHC RDW Plt Count MPV Immature Gran % Seg Neutrophils % Band Neutrophils % Lymphocytes % Monocytes % Eosinophils % Basophils % Neutrophils # Lymphocytes # Monocytes # Eosinophils # Basophils # Platelet Estimate Anisocytosis PT 46.5 H* INR 4.1 APTT Sample Site ABG pH ABG pCO2 ABG pO2 ABG HCO3 ABG Total CO2 ABG O2 Saturation ABG Base Excess Mason Test O2 Delivery Device Inspired O2 Sodium Potassium Chloride Carbon Dioxide BUN Creatinine Est GFR ( Amer) Est GFR (Non-Af Amer) BUN/Creatinine Ratio Glucose POC Glucose 94 Calculated Osmolality Calcium Phosphorus Magnesium Ammonia Vitamin B12 Folate TSH 5.905 H Ur Specimen Adequacy Urine Color Urine Clarity Urine pH Ur Specific [place] Urine Protein Urine Glucose (UA) Urine Ketones Urine Blood Urine Nitrite Urine Bilirubin Urine Urobilinogen Ur Leukocyte Esterase Ur Culture Indicated? 3 12/17/17 12/17/17 12/17/17 15:43 15:43 13:24 WBC RBC Hgb 10.5 L Hct 31.1 L MCV MCH MCHC RDW Plt Count MPV Immature Gran % Seg Neutrophils % Band Neutrophils % Lymphocytes % Monocytes % Eosinophils % Basophils % Neutrophils # Lymphocytes # Monocytes # Eosinophils # Basophils # Platelet Estimate Anisocytosis PT INR APTT Sample Site ABG pH ABG pCO2 ABG pO2 ABG HCO3 ABG Total CO2 ABG O2 Saturation ABG Base Excess Mason Test O2 Delivery Device Inspired O2 Sodium Potassium Chloride Carbon Dioxide BUN Creatinine Est GFR ( Amer) Est GFR (Non-Af Amer) BUN/Creatinine Ratio Glucose POC Glucose Calculated Osmolality Calcium Phosphorus Magnesium Ammonia 38 Vitamin B12 422 Folate 3.4 TSH Ur Specimen Adequacy Urine Color Urine Clarity Urine pH Ur Specific [place] Urine Protein Urine Glucose (UA) Urine Ketones Urine Blood Urine Nitrite Urine Bilirubin Urine Urobilinogen Ur Leukocyte Esterase Ur Culture Indicated? 3 12/17/17 12/17/17 12/17/17 11:57 11:39 10:47 WBC RBC Hgb Hct MCV MCH MCHC RDW Plt Count MPV Immature Gran % Seg Neutrophils % Band Neutrophils % Lymphocytes % Monocytes % Eosinophils % Basophils % Neutrophils # Lymphocytes # Monocytes # Eosinophils # Basophils # Platelet Estimate Anisocytosis PT 57.5 H* INR 5.1 H* APTT Sample Site L Radial ABG pH 7.39 ABG pCO2 28 L ABG pO2 122 H ABG HCO3 17 L ABG Total CO2 18 L ABG O2 Saturation 99 H ABG Base Excess -7 L Mason Test N/A O2 Delivery Device Cannula Inspired O2 30.0 Sodium Potassium Chloride Carbon Dioxide BUN Creatinine Est GFR ( Amer) Est GFR (Non-Af Amer) BUN/Creatinine Ratio Glucose POC Glucose 138 H Calculated Osmolality Calcium Phosphorus Magnesium Ammonia Vitamin B12 Folate TSH Ur Specimen Adequacy Urine Color Urine Clarity Urine pH Ur Specific [place] Urine Protein Urine Glucose (UA) Urine Ketones Urine Blood Urine Nitrite Urine Bilirubin Urine Urobilinogen Ur Leukocyte Esterase Ur Culture Indicated? 3 12/17/17 12/17/17 12/17/17 03:52 03:52 03:52 WBC 9.5 RBC 3.16 L Hgb 10.1 L D Hct 29.8 L MCV 94.3 MCH 32.0 MCHC 33.9 RDW 14.0 Plt Count 32 L MPV 12.5 H Immature Gran % Seg Neutrophils % 86.0 Band Neutrophils % 8.0 H Lymphocytes % 4.0 Monocytes % 2.0 Eosinophils % Basophils % Neutrophils # 8.9 Lymphocytes # 0.4 L Monocytes # 0.2 Eosinophils # Basophils # Platelet Estimate Decreased L Anisocytosis PT INR APTT 54.4 H Sample Site ABG pH ABG pCO2 ABG pO2 ABG HCO3 ABG Total CO2 ABG O2 Saturation ABG Base Excess Mason Test O2 Delivery Device Inspired O2 Sodium 137 Potassium 4.1 Chloride 112 H Carbon Dioxide 18 L BUN 25 H Creatinine 1.25 H Est GFR ( Amer) 54 L Est GFR (Non-Af Amer) 44 L BUN/Creatinine Ratio 20 Glucose 113 H POC Glucose Calculated Osmolality 289 Calcium 8.3 L Phosphorus 2.7 Magnesium 2.1 Ammonia Vitamin B12 Folate TSH Ur Specimen Adequacy Urine Color Urine Clarity Urine pH Ur Specific [place] Urine Protein Urine Glucose (UA) Urine Ketones Urine Blood Urine Nitrite Urine Bilirubin Urine Urobilinogen Ur Leukocyte Esterase Ur Culture Indicated? 3 12/17/17 12/16/17 00:16 17:01 WBC RBC Hgb Hct MCV MCH MCHC RDW Plt Count MPV Immature Gran % Seg Neutrophils % Band Neutrophils % Lymphocytes % Monocytes % Eosinophils % Basophils % Neutrophils # Lymphocytes # Monocytes # Eosinophils # Basophils # Platelet Estimate Anisocytosis PT 49.0 H* INR 4.3 APTT Sample Site ABG pH ABG pCO2 ABG pO2 ABG HCO3 ABG Total CO2 ABG O2 Saturation ABG Base Excess Mason Test O2 Delivery Device Inspired O2 Sodium Potassium Chloride Carbon Dioxide BUN Creatinine Est GFR ( Amer) Est GFR (Non-Af Amer) BUN/Creatinine Ratio Glucose POC Glucose 104 H Calculated Osmolality Calcium Phosphorus Magnesium Ammonia Vitamin B12 Folate TSH Ur Specimen Adequacy Urine Color Urine Clarity Urine pH Ur Specific [place] Urine Protein Urine Glucose (UA) Urine Ketones Urine Blood Urine Nitrite Urine Bilirubin Urine Urobilinogen Ur Leukocyte Esterase Ur Culture Indicated? Consult Discharge Plan - Plan Referrals: Kerry Farris MD [Primary Care Provider] - <Tiny De Jesus S - Last Filed: 12/18/17 17:36> Date of Encounter: 12/18/17 - Data of Consult Requesting Physician: Angel Mittal MD Primary Care Provider: Kerry Farris MD - Consult Narrative History of present illness: Ms. Jackson is a 57 year old female Oncology - Exam - Constitutional Vitals: Temp Pulse Resp BP Pulse Ox 98.3 F 80 18 139/71 96 12/18/17 17:20 12/18/17 17:20 12/18/17 17:20 12/18/17 17:20 12/18/17 17:20 Oncology - Results Labs: 3 12/18/17 12/18/17 12/18/17 09:29 09:29 07:02 WBC RBC Hgb 11.1 L Hct 33.1 L MCV MCH MCHC RDW Plt Count MPV Immature Gran % Seg Neutrophils % Band Neutrophils % Lymphocytes % Monocytes % Eosinophils % Basophils % Neutrophils # Lymphocytes # Monocytes # Eosinophils # Basophils # Platelet Estimate Anisocytosis PT INR APTT Sample Site ABG pH ABG pCO2 ABG pO2 ABG HCO3 ABG Total CO2 ABG O2 Saturation ABG Base Excess Mason Test O2 Delivery Device Inspired O2 Sodium Potassium Chloride Carbon Dioxide BUN Creatinine Est GFR ( Amer) Est GFR (Non-Af Amer) BUN/Creatinine Ratio Glucose POC Glucose 75 Calculated Osmolality Calcium Phosphorus Magnesium Ammonia 30 Vitamin B12 Folate TSH Ur Specimen Adequacy Urine Color Urine Clarity Urine pH Ur Specific [place] Urine Protein Urine Glucose (UA) Urine Ketones Urine Blood Urine Nitrite Urine Bilirubin Urine Urobilinogen Ur Leukocyte Esterase Ur Culture Indicated? 3 12/18/17 12/18/17 12/18/17 05:39 05:39 05:39 WBC 13.4 H RBC 3.29 L Hgb 10.5 L Hct 30.9 L MCV 94.8 MCH 31.9 MCHC 33.7 RDW 14.6 H Plt Count 50 L D MPV 11.7 Immature Gran % Test Not Performed Seg Neutrophils % 88.0 Band Neutrophils % Lymphocytes % 8.0 Monocytes % 4.0 Eosinophils % Test Not Performed Basophils % Test Not Performed Neutrophils # 11.8 H Lymphocytes # 1.1 Monocytes # 0.5 Eosinophils # Test Not Performed Basophils # Test Not Performed Platelet Estimate Decreased L Anisocytosis 1+ A PT 69.6 H* INR 6.2 H* D APTT Sample Site ABG pH ABG pCO2 ABG pO2 ABG HCO3 ABG Total CO2 ABG O2 Saturation ABG Base Excess Mason Test O2 Delivery Device Inspired O2 Sodium 140 Potassium 3.4 L Chloride 118 H Carbon Dioxide 12 L BUN 35 H Creatinine 0.95 Est GFR ( Amer) > 60 Est GFR (Non-Af Amer) > 60 BUN/Creatinine Ratio 37 H Glucose 95 POC Glucose Calculated Osmolality 298 Calcium 8.6 Phosphorus 1.1 L Magnesium Ammonia Vitamin B12 Folate TSH Ur Specimen Adequacy Urine Color Urine Clarity Urine pH Ur Specific [place] Urine Protein Urine Glucose (UA) Urine Ketones Urine Blood Urine Nitrite Urine Bilirubin Urine Urobilinogen Ur Leukocyte Esterase Ur Culture Indicated? 3 12/18/17 12/17/17 12/17/17 01:08 21:15 20:02 WBC RBC Hgb 10.0 L Hct 29.7 L MCV MCH MCHC RDW Plt Count MPV Immature Gran % Seg Neutrophils % Band Neutrophils % Lymphocytes % Monocytes % Eosinophils % Basophils % Neutrophils # Lymphocytes # Monocytes # Eosinophils # Basophils # Platelet Estimate Anisocytosis PT INR APTT Sample Site ABG pH ABG pCO2 ABG pO2 ABG HCO3 ABG Total CO2 ABG O2 Saturation ABG Base Excess Mason Test O2 Delivery Device Inspired O2 Sodium Potassium Chloride Carbon Dioxide BUN Creatinine Est GFR ( Amer) Est GFR (Non-Af Amer) BUN/Creatinine Ratio Glucose POC Glucose 86 Calculated Osmolality Calcium Phosphorus Magnesium Ammonia Vitamin B12 Folate TSH Ur Specimen Adequacy [employer] 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 YES A 3 12/17/17 12/17/17 12/17/17 18:08 17:23 15:43 WBC RBC Hgb Hct MCV MCH MCHC RDW Plt Count MPV Immature Gran % Seg Neutrophils % Band Neutrophils % Lymphocytes % Monocytes % Eosinophils % Basophils % Neutrophils # Lymphocytes # Monocytes # Eosinophils # Basophils # Platelet Estimate Anisocytosis PT 46.5 H* INR 4.1 APTT Sample Site ABG pH ABG pCO2 ABG pO2 ABG HCO3 ABG Total CO2 ABG O2 Saturation ABG Base Excess Mason Test O2 Delivery Device Inspired O2 Sodium Potassium Chloride Carbon Dioxide BUN Creatinine Est GFR ( Amer) Est GFR (Non-Af Amer) BUN/Creatinine Ratio Glucose POC Glucose 94 Calculated Osmolality Calcium Phosphorus Magnesium Ammonia Vitamin B12 Folate TSH 5.905 H Ur Specimen Adequacy Urine Color Urine Clarity Urine pH Ur Specific [place] Urine Protein Urine Glucose (UA) Urine Ketones Urine Blood Urine Nitrite Urine Bilirubin Urine Urobilinogen Ur Leukocyte Esterase Ur Culture Indicated? 3 12/17/17 12/17/17 12/17/17 15:43 15:43 13:24 WBC RBC Hgb 10.5 L Hct 31.1 L MCV MCH MCHC RDW Plt Count MPV Immature Gran % Seg Neutrophils % Band Neutrophils % Lymphocytes % Monocytes % Eosinophils % Basophils % Neutrophils # Lymphocytes # Monocytes # Eosinophils # Basophils # Platelet Estimate Anisocytosis PT INR APTT Sample Site ABG pH ABG pCO2 ABG pO2 ABG HCO3 ABG Total CO2 ABG O2 Saturation ABG Base Excess Mason Test O2 Delivery Device Inspired O2 Sodium Potassium Chloride Carbon Dioxide BUN Creatinine Est GFR ( Amer) Est GFR (Non-Af Amer) BUN/Creatinine Ratio Glucose POC Glucose Calculated Osmolality Calcium Phosphorus Magnesium Ammonia 38 Vitamin B12 422 Folate 3.4 TSH Ur Specimen Adequacy Urine Color Urine Clarity Urine pH Ur Specific [place] Urine Protein Urine Glucose (UA) Urine Ketones Urine Blood Urine Nitrite Urine Bilirubin Urine Urobilinogen Ur Leukocyte Esterase Ur Culture Indicated? 3 12/17/17 12/17/17 12/17/17 11:57 11:39 10:47 WBC RBC Hgb Hct MCV MCH MCHC RDW Plt Count MPV Immature Gran % Seg Neutrophils % Band Neutrophils % Lymphocytes % Monocytes % Eosinophils % Basophils % Neutrophils # Lymphocytes # Monocytes # Eosinophils # Basophils # Platelet Estimate Anisocytosis PT 57.5 H* INR 5.1 H* APTT Sample Site L Radial ABG pH 7.39 ABG pCO2 28 L ABG pO2 122 H ABG HCO3 17 L ABG Total CO2 18 L ABG O2 Saturation 99 H ABG Base Excess -7 L Mason Test N/A O2 Delivery Device Cannula Inspired O2 30.0 Sodium Potassium Chloride Carbon Dioxide BUN Creatinine Est GFR ( Amer) Est GFR (Non-Af Amer) BUN/Creatinine Ratio Glucose POC Glucose 138 H Calculated Osmolality Calcium Phosphorus Magnesium Ammonia Vitamin B12 Folate TSH Ur Specimen Adequacy Urine Color Urine Clarity Urine pH Ur Specific [place] Urine Protein Urine Glucose (UA) Urine Ketones Urine Blood Urine Nitrite Urine Bilirubin Urine Urobilinogen Ur Leukocyte Esterase Ur Culture Indicated? 3 12/17/17 12/17/17 12/17/17 03:52 03:52 03:52 WBC 9.5 RBC 3.16 L Hgb 10.1 L D Hct 29.8 L MCV 94.3 MCH 32.0 MCHC 33.9 RDW 14.0 Plt Count 32 L MPV 12.5 H Immature Gran % Seg Neutrophils % 86.0 Band Neutrophils % 8.0 H Lymphocytes % 4.0 Monocytes % 2.0 Eosinophils % Basophils % Neutrophils # 8.9 Lymphocytes # 0.4 L Monocytes # 0.2 Eosinophils # Basophils # Platelet Estimate Decreased L Anisocytosis PT INR APTT 54.4 H Sample Site ABG pH ABG pCO2 ABG pO2 ABG HCO3 ABG Total CO2 ABG O2 Saturation ABG Base Excess Mason Test O2 Delivery Device Inspired O2 Sodium 137 Potassium 4.1 Chloride 112 H Carbon Dioxide 18 L BUN 25 H Creatinine 1.25 H Est GFR ( Amer) 54 L Est GFR (Non-Af Amer) 44 L BUN/Creatinine Ratio 20 Glucose 113 H POC Glucose Calculated Osmolality 289 Calcium 8.3 L Phosphorus 2.7 Magnesium 2.1 Ammonia Vitamin B12 Folate TSH Ur Specimen Adequacy Urine Color Urine Clarity Urine pH Ur Specific [place] Urine Protein Urine Glucose (UA) Urine Ketones Urine Blood Urine Nitrite Urine Bilirubin Urine Urobilinogen Ur Leukocyte Esterase Ur Culture Indicated? 3 12/17/17 12/16/17 00:16 17:01 WBC RBC Hgb Hct MCV MCH MCHC RDW Plt Count MPV Immature Gran % Seg Neutrophils % Band Neutrophils % Lymphocytes % Monocytes % Eosinophils % Basophils % Neutrophils # Lymphocytes # Monocytes # Eosinophils # Basophils # Platelet Estimate Anisocytosis PT 49.0 H* INR 4.3 APTT Sample Site ABG pH ABG pCO2 ABG pO2 ABG HCO3 ABG Total CO2 ABG O2 Saturation ABG Base Excess Mason Test O2 Delivery Device Inspired O2 Sodium Potassium Chloride Carbon Dioxide BUN Creatinine Est GFR ( Amer) Est GFR (Non-Af Amer) BUN/Creatinine Ratio Glucose POC Glucose 104 H Calculated Osmolality Calcium Phosphorus Magnesium Ammonia Vitamin B12 Folate TSH Ur Specimen Adequacy Urine Color Urine Clarity Urine pH Ur Specific [place] Urine Protein Urine Glucose (UA) Urine Ketones Urine Blood Urine Nitrite Urine Bilirubin Urine Urobilinogen Ur Leukocyte Esterase Ur Culture Indicated? - Attending Attestation 1. Pyelonephritis with the hydronephrosis and sepsis. Currently on IV Rocephin 2. Hematology consult for progressive thrombocytopenia Her baseline platelet count 140 on November 2017. Currently 50,000. Most likely this is secondary to sepsis 3. Lupus anticoagulant positive- diagnosis at [facility] around 2007. She had vascular problems including strokelike symptoms at that time. She is been on Coumadin since then. She has elevated INR on Coumadin stopped on admission 2 days ago. Current INR aches. She received 2 units of FFP in the morning and 2 units of FFP in the afternoon. She also received vitamin K 5 mg Discussed with family in detail. They prefer to continue Coumadin. New oral anticoagulation agents like Elequis or Pradaxa should be effective for lupus anticoagulant as well but the data is lacking. Would consider restarting anticoagulation once her clinical stents him stabilize 4. Altered mental status. She also had acute renal injury creatinine 2 on admission and rapidly improved with hydration current creatinine 1. She was not anemic on admission but current hemoglobin 11. Clinically no evidence of microangiopathic hemolytic anemia. We will do peripheral smear. LDH pending. Also repeat PT PTT and fibrinogen level this afternoon. Most referable symptoms can be explained by sepsis/pyelonephritis. Thrombotic thrombus any purpura is in the differential but less likely given above futures Actually when I talked to her she is more alert oriented and able to carry on a conversation Neurology involved. EEG negative for seizure activity but considered abnormal Infectious disease involved. She is afebrile. She has been on multiple medications including Prozac, trazodone, Wellbutrin and Seroquel
[2017-12-18] MEDS ORDERED: *HR* LORazepam 2 MG/ML VIAL IVP SCH (12:00)
[2017-12-18] MEDS ORDERED: 0.9 % Sodium Chloride Mini Bag 100 ML ONE (12:09)
[2017-12-18] MEDS ORDERED: 0.9 % Sodium Chloride 500 ML ONE ×2 (12:10→16:54)
[2017-12-18] MEDS: cefTRIAXone 1,000 MG in Water for inj. (sterile) 20 ML 10 ML IVP SCH (13:27)
--- NOTE | 2017-12-18 15:09 | Infectious Disease Consult ---
Date of Encounter: 12/18/17 Time of Encounter: 13:30 Assessment and Plan (1) Severe sepsis Status: Acute Assessment and plan: Met SIRS criteria with >10% bandemia, tachycardia, fever with TMAX of 101.1, end organ damage with Cr 1.99 on admission and AMS - Secondary to pneumonia vs UTI - Currently on Zosyn - Blood culture x 2 pending (2) PNA (pneumonia) Status: Acute Assessment and plan: - Secondary to unknown organism - Chest x-ray demonstrates possible pneumonia versus atelectasis - Patient was given IV Levaquin O initially; avoiding at this time due to the possible lowering of seizure threshold - Rocephin and Zithromax; currently on Zosyn - Blood cultures are currently pending - Repeat CXR, Resp infection panel, legionella, strep antigen Qualifiers: Pneumonia type: due to unspecified organism Laterality: right Lung location: lower lobe of lung Qualified Code(s): J18.1 - Lobar pneumonia, unspecified organism (3) Encephalopathy Status: Acute Assessment and plan: Secondary to infectious process vs metabolic - Patients white count has increased to 13 - Patient was initially a aphasic; this has since resolved - Patient was very fatigued on physical exam - She was given 2 mg Ativan IV push. - Both head CT and MRI showed no acute process - EEG was obtained, showed no clear paroxysmal activities or epileptiform discharges; showed prominent delta activity in the anterior/posterior regions, consistent with encephalopathy - No meningeal signs on physical exam; will not likely require LP at this time (4) Nephrolithiasis Status: Acute Assessment and plan: Abdomen and pelvis CT demonstrated: - Left hydronephrosis secondary to a 5 mm distal ureter calculus - Bilateral urolithiasis - Noncalcified left lower lobe pulmonary nodule measuring 2 mm - Urology was consulted, patient underwent left-sided ureter stone extraction, left retrograde pyelogram, stent placement on 12/16 - Urology following (5) Seizure disorder Status: Chronic Assessment and plan: - Continue home meds - Management per primary team (6) HTN (hypertension) Status: Acute Assessment and plan: - Management per primary team Qualifiers: Hypertension type: unspecified Qualified Code(s): I10 - Essential (primary ) hypertension (7) Coumadin toxicity Status: Acute Assessment and plan: Elevated PT; being held Qualifiers: Encounter type: initial encounter Injury intent: accidental or unintentional Qualified Code(s): T45.511A - Poisoning by anticoagulants, accidental (unintentional), initial encounter Infectious Disease HPI - Data of Consult Requesting Physician: Angel Mittal MD Primary Care Provider: Kerry Farris MD - Consult Narrative Reason for consult: Possible infectious encephalopathy History of present illness: Patient is a 57-year-old female who presented to [facility] ED on 12/16/17 with altered mental status. We are consulted for concern for infectious encephalopathy. Patient has a known past medical history of dementia, cognitive deficits, hyperlipidemia, hypertension, CAD stage III, seizure disorder, hypothyroidism, antiphospholipid syndrome on warfarin. Patient was started on ciprofloxacin prior to arrival by her primary care provider for a UTI. She developed worsening mental status by evening. Patients caregiver and thought she was just tired. She continued to become lethargic and confused. Became nonverbal. Also reports that she had become nauseous over the past few days. She had taken a total of 2 doses of her ciprofloxacin. Had never taken this medication before. Per review of ER note, patient had a tick and continue to purse her lips on physical exam, which was a new finding. Appeared neurologically intact in the emergency department. No meningeal signs. She was given a dose of IV Levaquin in the emergency department. She was also given IV fluids secondary to concerns of dehydration. Upon arrival to the emergency department, patients vital signs were as follows : Temperature was 98.8, pulse rate was 102, respiratory rate 16, blood pressure was 113/70, O2 sat was 93. Laboratory analysis demonstrated a white count of 8.4, PT of 49.0, elevated creatinine at 1.99, and a urine specimen suggestive of possible UTI. Subsequent urinalysis demonstrated a large amount of leukocyte esterase, blood, cloudy appearance. Toxicology screening was negative. Chest x-ray demonstrated the presence of right-sided basilar atelectasis or pneumonia. Head CT demonstrated mild small vessel chronic ischemic changes without acute hemorrhage or definite evidence of acute ischemia. Abdomen and pelvis CT demonstrated left hydronephrosis secondary to a 5 mm distal ureter calculus. Bilateral urolithiasis. Biliary sludge within the gallbladder. Noncalcified left lower lobe pulmonary nodule measuring 2 mm. Urology was consulted, patient underwent left-sided ureter stone extraction, left retrograde pyelogram, stent placement. Neurology is following. Patient was seen and examined at bedside; appears very tired. Is able to answer questions appropriately. Currently alert and oriented 3. She is accompanied by her and her caregiver. They report that her mental status has improved. Reports a headache. Denies having any nausea, vomiting, fever, or chills. Denies any pain anywhere else. Denies having an exacerbation of her headache by light or loud noises. Denies having any recent sick contacts or travel. No further complaints at this time. CC: Angel Mittal MD Past Med Surg Social Fam HX - Past Medical History Medical history: dementia, hyperlipidemia, hypertension, renal disease, seizures , thyroid disease, TIA Additional medical history: vascular dementia, antiphospholid syndrome Psychiatric history: anxiety, depression - Past Surgical History Surgical History: , other Additional surgical history: colonoscopy, ablation - Social History Smoking Status: Never smoker Alcohol use: none Drug use: none - Family History Father Living Status: Age at : 72 Cause of : colon cancer Hx Family Cardiac Disorders: No Hx Family Respiratory Disorders: No Hx Family Cancer: Yes (colon cancer) Hx Family GI Disorders: No Hx Family Genitourinary Disorders: No Hx Family Endocrine Disorder: No Hx Family Musculoskeletal Disorders: No Hx Family Neuromuscular Disorders: No Hx Family Neurologic Disorders: No Hx Family HEENT Disorders: No Hx Family Autoimmune Disorders: No Hx Family Reproductive Disorders: No Hx Family Psychosocial Disorders: No Hx Family Medical Disorders: No Mother Hx Family Cardiac Disorders: No Hx Family Respiratory Disorders: No Hx Family Cancer: No Hx Family GI Disorders: No Hx Family Genitourinary Disorders: No Hx Family Endocrine Disorder: No Hx Family Musculoskeletal Disorders: No Hx Family Neuromuscular Disorders: No Hx Family Neurologic Disorders: No Hx Family HEENT Disorders: No Hx Family Autoimmune Disorders: No Hx Family Reproductive Disorders: No Hx Family Psychosocial Disorders: No Hx Family Medical Disorders: No Infectious Disease-CN:Meds Atorvastatin Calcium [Lipitor] 20 mg PO HS 12/16/17 [History] BuPROPion SR (12 HR) [Wellbutrin SR] 150 mg PO 1200 12/16/17 [History] BuPROPion SR (12 HR) [Wellbutrin SR] 300 mg PO QAM 12/16/17 [History] Calcium Carbonate [Calcium] 500 mg PO DAILY 12/16/17 [History] Ciprofloxacin HCl [Cipro] 500 mg PO BID 12/16/17 [History] FLUoxetine HCl [Fluoxetine HCl] 40 mg PO DAILY 12/16/17 [History] Levothyroxine [Synthroid] 100 mcg PO 0630 12/16/17 [History] Ondansetron ODT [Zofran ODT] 4 mg PO DAILY PRN 12/16/17 [History] Potassium Chloride 20 meq PO BID 12/16/17 [History] Quetiapine Fumarate [Seroquel] 50 mg PO HS 12/16/17 [History] Spironolactone [Aldactone] 50 mg PO BID 12/16/17 [History] Topiramate [Topamax] 50 mg PO BID 12/16/17 [History] Trazodone HCl 300 mg PO HS 12/16/17 [History] Warfarin Sodium [Warfarin Sodium] 2.5 mg PO DAILY 12/16/17 [History] raNITIdine HCl [Ranitidine HCl] 300 mg PO DAILY 12/16/17 [History] 3 Allergy/AdvReac Type Severity Reaction Status Date / Time divalproex sodium AdvReac See Verified 12/16/17 07:46 [From Depakote] Comments phenytoin [From Dilantin] AdvReac Hives Verified 12/16/17 07:46 Review of systems: 10 point review of systems done, negative other for what mentioned in the history of present illness. - Constitutional Constitutional: Present: fatigue, lethargy. Absent: fever(s) - Cardiovascular Cardiovascular: Absent: chest pain - Respiratory Respiratory: Absent: dyspnea, wheezing, change in phlegm color - Integumentary Integumentary: Absent: rash - Psychiatric Psychiatric: Absent: auditory hallucinations, confusion, hallucinations, irritability Exam - Constitutional Vitals: Temp Pulse Resp BP Pulse Ox 99.2 F 77 16 118/68 96 12/18/17 12:32 12/18/17 12:32 12/18/17 12:32 12/18/17 12:32 12/18/17 12:32 - Head Head exam: Present: atraumatic, normal inspection, normocephalic - Eye Eye exam: Present: EOMI, PERRL, sclera anicteric - ENT ENT exam: Present: mucous membranes moist Additional comments: No oral lesions. - Neck Neck exam: Present: full ROM. Absent: meningismus - Respiratory Respiratory exam: Present: CTAB. Absent: rales, rhonchi, tachypnea - Cardiovascular Cardiovascular exam: Present: RRR, +S1, +S2. Absent: bradycardia, tachycardia - GI/Abdominal GI/Abdominal exam: Present: soft. Absent: tenderness - Extremities Exam Extremities exam: Present: full ROM, normal inspection. Absent: pedal edema - Back Exam Back exam: Absent: CVA tenderness (L), CVA tenderness (R) - Neurological Exam Neurological exam: Present: oriented X3. Absent: speech deficit - Psychiatric Psychiatric exam: Present: normal affect, normal mood - Skin Skin exam: Present: normal color. Absent: rash Infectious Disease CN: Results - Labs CBC & Chem 7: 12/18/17 09:29 12/18/17 05:39 Cultures: Cultures 12/17/17 12:45 Urine Culture - Preliminary Urine,Catheterized No growth. Serology: Serology 12/17/17 Range/Units 21:15 Ur Specimen Adequacy CLINICAL RESEARCH ASSISTANT Urine Color Reina A (Yellow) Urine Clarity Cloudy A (Clear) Urine pH 7.0 (5.0-8.0) pH Units Ur Specific [place] 1.020 (1.010-1.025) Urine Protein 30 H (Neg-Trace) mg/dL Urine Glucose (UA) Normal (Normal) mg/dL Urine Ketones Trace H (Negative) mg/dL Urine Blood Moderate H (Negative) Urine Nitrite Negative (Negative) Urine Bilirubin Negative (Negative) Urine Urobilinogen 4.0 H (Normal) mg/dL Ur Leukocyte Esterase Large H (Negative) Ur Culture Indicated? YES A (NO) - VTE Documentation of Mechanical Device: Intermittent pneumatic compression device Consult Discharge Plan - Plan Referrals: Kerry Farris MD [Primary Care Provider] - - Attending Attestation I examined this patient and my medical decision-making was reviewed with the Resident Physician. I agree with the documented findings, disposition and treatment plan as described except to the extent set forth below. This is an addendum to original report dictated by resident physician. Please refer to resident's note for full detail. Patient is a 57-year-old woman with past medical history mentioned below apparently on Thursday prior to admission started having intractable vomiting about 5-6 episodes with low-grade fever and was not feeling well. Patient continued to have the same symptoms and on Thursday started having some left flank pain. On Thursday patient was evaluated by her PCP and was told she has a UTI and was started on Cipro. Ciprofloxacin was given 2 doses before the patient started having altered mental status and feeding lethargic so she came to the emergency department for evaluation. Since admission patient was noted to have hydronephrosis secondary to nephrolithiasis. Patient also had elevated alkaline phosphatase and sludge in the gallbladder. Patient chest x-ray concerning for possible pneumonia versus atelectasis on the right base. Patient urine culture was negative. Blood cultures also obtained and was negative. Patient apparently was very lethargic and obtunded yesterday but today family tells me that she is 100 times better. Patient is alert oriented 4 she has no meningeal signs of physical exam she knew all her children and stepchildren and in the room and she was conversant and actually even joking. Patient denies URI symptoms. Patient denies history of cold sores. Family and were all at bedside including nursing staff Estella Howell I actually went over all the labs and imaging with the family and discussed everything. All their questions were answered and all their concerns were addressed. Assessment and plan: Severe sepsis Secondary to pneumonia vs UTI vs other Pneumonia Right base causative organism not clear concern for aspiration Currently on rocephin and azithromycin; switch to zosyn Check RIP, Urine legionella and pneumococcal antigen Nephrolithiasis with NILSA and hydronephrosis on the left s/p stent placement, left ureter stone extraction and left retrograde pyelogram by Dr. Levy on 04/25 Intractable vomting likely secondary to NILSA; symptoms resolved Encephelapathy secondary to metabolic encephalopathy secondary to pneumonia vs other; no signs of meningitis or encephalitis; patient alert oriented x 4 and answers questions and follows commands. Discussed with Dr. Hidalgo who saw patient earlier when she was lethargic and apparently when I saw her shes doing much better clinically. No LP at this time Seizure disorder Antiphospholipid syndrome with history of blood clots in the brain Coumadin toxicity.
[2017-12-18] MEDS: Azithromycin 500 MG in D5% in Water 250 ML IVPB SCH (15:14)
--- NOTE | 2017-12-18 18:38 | Event Note ---
Date of Encounter: 12/18/17 Time of Encounter: 18:32 I have personally performed a face to face evaluation on this patient. I have reviewed and agree with the care plan provided by RAIL CAR WELDER Michael Lovell. History and Exam by me shows: Ms. Jackson is a 57 y/o F with known subcoritical cognitive deficits, HLD, HTN, CKD III, Seizure disorder, Hypothyroid, Anti-phospholipid syndrome on chronic Warfarin presented to the emergency department on Thursday afternoon with altered mental status. She was found to have left sided hydronephrosis secondary to a 5mm distal ureteral calculus and clinical picture of pylonephritis. Her CXR demonstrated right basilar atelectasis vs pneumonia. She was seen by Urology and underwent left ureteroscope stone extraction, stent placement and retrograde pyelogram. Pt was started on empirical abx Rocephin + Azithromycin. Her INR seems to be worsening and platelets were dropping down. Pt became more lethargic, and delirious this morning. Now she is alert, awake and O x 3. Denied any [place], visual changes. Talked to pt's at bed side and explained to him about current care. a/p 1. Acute delirium / Toxic encehpaloapathy Very less likely meningitis / inf encephalitis no need of LP appreciate ID/ Neuro recommendations changed abx to broad spec Zosyn Urine cx from PCP office - E. Coli 2. Acute UTI / Pyelonephritis 3. Sepsis 4. CAP- Aspiration PNA cont broad spec abx Zosyn 5. NILSA - resolved 6. Left ureter calculi s/p left ureteroscope stone extraction, stent placement and retrograde pyelogram 7. Supra therapeutic INR - due to sepsis 8. Acute on chronic thrombocytopenia - due to sepsis Heme Onc consulted Vit K 5mg x 1 dose, FFP x 2 U
[2017-12-18] MEDS: traZODone 50 MG TABLET PO SCH (20:35)
[2017-12-18] MEDS: D5% in 0.45% NACL 1,000 ML IVC SCH (20:35)
[2017-12-18 21:06] LABS: Adenovirus Not Detected (Not Detect); Bordetella Pertussis Not Detected (Not Detect); Chlamydophila pneumoniae Not Detected (Not Detect); Coronavirus 229E Not Detected (Not Detect); Coronavirus HKU1 Not Detected (Not Detect); Coronavirus NL63 Not Detected (Not Detect); Coronavirus OC43 Not Detected (Not Detect); Human Metapneumovirus Not Detected (Not Detect); Human Rhinovirus/Enterovirus Not Detected (Not Detect); Influenza A Subtype 2009 H1 Not Detected (Not Detect); Influenza A Untypeable Not Detected (Not Detect); Influenza B Not Detected (Not Detect); Mycoplasma pneumoniae Not Detected (Not Detect); Parainfluenza Virus 1 Not Detected (Not Detect); Parainfluenza Virus 2 Not Detected (Not Detect); Parainfluenza Virus 3 Not Detected (Not Detect); Parainfluenza Virus 4 Not Detected (Not Detect); Respiratory Syncytial Virus Not Detected (Not Detect)
[2017-12-18 22:27] LABS: Eosinophils % 0.4 %; Mean Corpuscular Volume 95.3 fL (83.0-100.0)
[2017-12-18 22:28] LABS: Hematocrit 26.1 % (35.3-44.9); Immature Granulocytes % 1.3 % (0-4); Immature Platelets 4.7 % (1.1-6.1); Lymphocytes # 1.1 K/mcL (0.6-4.6); Lymphocytes % 14.8 %; Mean Corpuscular HGB Conc 33.7 g/dL (31.6-35.5); Mean Corpuscular Hemoglobin 32.1 pg (28.0-33.3); Mean Platelet Volume 10.5 fL (9.4-12.4); Monocytes # 0.5 K/mcL (0.0-1.3); Monocytes % 6.9 %; Neutrophils # 5.9 K/mcL (1.6-8.9); Red Blood Count 2.74 M/mcL (3.82-4.97); Red Cell Distribution Width 14.6 % (11.5-14.5); Segmented Neutrophils % 76.6 %
[2017-12-18 23:25] LABS: Platelet Count 44 K/mcL (140-400)
[2017-12-18 23:31] LABS: Hypochromasia Present (Not Present); Platelet Estimate Marked Decrease (Normal)
[2017-12-18 23:37] LABS: Hemoglobin 8.8 g/dL (11.5-15.4)
[2017-12-18 23:44] LABS: INR 1.2; Prothrombin Time 13.4 Seconds (9.4-12.1)
[2017-12-19] MEDS: Piperacillin/Tazobactam 3.375 GM in 0.9 % Sodium Chloride Mini Bag 100 ML IVPB SCH ×4 (00:52→23:18)
[2017-12-19 04:46] LABS: Eosinophils % 0.9 %; Red Cell Distribution Width 14.6 % (11.5-14.5)
[2017-12-19 04:48] LABS: Basophils % 0.2 %; Eosinophils # 0.1 K/mcL (0.0-0.6); Hematocrit 27.4 % (35.3-44.9); Hemoglobin 9.2 g/dL (11.5-15.4); Immature Granulocytes % 1.8 % (0-4); Immature Platelets 4.3 % (1.1-6.1); Lymphocytes # 1.2 K/mcL (0.6-4.6); Lymphocytes % 17.5 %; Mean Corpuscular HGB Conc 33.6 g/dL (31.6-35.5); Mean Corpuscular Hemoglobin 31.8 pg (28.0-33.3); Mean Corpuscular Volume 94.8 fL (83.0-100.0); Mean Platelet Volume 11.7 fL (9.4-12.4); Monocytes # 0.5 K/mcL (0.0-1.3); Monocytes % 7.6 %; Red Blood Count 2.89 M/mcL (3.82-4.97)
[2017-12-19 04:50] LABS: Neutrophils # 4.8 K/mcL (1.6-8.9); Platelet Count 54 K/mcL (140-400)
[2017-12-19 04:52] LABS: INR 1.2; Prothrombin Time 13.5 Seconds (9.4-12.1)
[2017-12-19 05:07] LABS: BUN/Creatinine Ratio 25 (6-26); Blood Urea Nitrogen 22 mg/dL (6-20); Calcium 8.1 mg/dL (8.6-10.3); Carbon Dioxide 20 mEq/L (23-29); Chloride 114 mEq/L (98-107); Glucose 115 mg/dL (70-105); Osmolality,Calculated 292 (280-300); Sodium 139 mEq/L (136-145); eGFR For African Americans > 60 (> 60); eGFR For Non-African Americans > 60 (> 60)
[2017-12-19 05:08] LABS: Albumin 2.4 g/dL (3.5-5.7); Bilirubin,Direct 0.4 mg/dL (0.0-0.2); Bilirubin,Indirect 0.5 mg/dL (0.0-1.2); Bilirubin,Total 0.9 mg/dL (0.3-1.0); Globulin 2.3 g/dL (2.4-3.5); Total Protein 4.7 g/dL (6.4-8.9)
[2017-12-19 05:20] LABS: Hypochromasia Present (Not Present); Platelet Estimate Decreased (Normal); Polychromasia 1+ (Not Present); Toxic Granulation Present (Not Present)
[2017-12-19] MEDS: D5% in 0.45% NACL 1,000 ML IVC SCH (06:05)
[2017-12-19] MEDS ORDERED: *HR* Warfarin 5 MG TABLET PO ONE (09:14)
[2017-12-19] MEDS: BuPROPion SR (12 HR) 150 MG TABLET PO SCH ×2 (09:14→11:56)
[2017-12-19] MEDS: Famotidine 20 MG TABLET PO SCH (09:15)
[2017-12-19] MEDS: FLUoxetine 20 MG CAPSULE PO SCH (09:15)
[2017-12-19] MEDS: Topiramate 25 MG TABLET PO SCH ×2 (09:15→20:26)
--- NOTE | 2017-12-19 09:54 | Internal Med Progress Note ---
Date of Encounter: 12/19/17 Time of Encounter: 09:40 - Assessment and plan (1) Thrombocytopenia Current Visit: Yes Status: Acute (2) Acute kidney injury Current Visit: Yes Status: Acute (3) Supratherapeutic INR Current Visit: Yes Status: Acute (4) Left ureteral calculus Current Visit: Yes Status: Acute (5) Hydronephrosis Current Visit: Yes Status: Acute Qualifiers: Hydronephrosis type: with ureteral calculous obstruction Qualified Code(s) : N13.2 - Hydronephrosis with renal and ureteral calculous obstruction (6) Encephalopathy Current Visit: Yes Status: Acute (7) PNA (pneumonia) Current Visit: Yes Status: Acute Qualifiers: Pneumonia type: due to unspecified organism Laterality: right Lung location: lower lobe of lung Qualified Code(s): J18.1 - Lobar pneumonia, unspecified organism (8) Hypophosphatemia Current Visit: Yes Status: Acute (9) Hypokalemia Current Visit: Yes Status: Acute (10) Antiphospholipid syndrome Current Visit: Yes Status: Chronic (11) Seizure disorder Current Visit: Yes Status: Chronic (12) UTI (urinary tract infection) Current Visit: Yes Status: Acute Qualifiers: Urinary tract infection type: acute cystitis Hematuria presence: with hematuria Qualified Code(s): N30.01 - Acute cystitis with hematuria (13) Sepsis Current Visit: Yes Status: Acute - Time Spent With Patient Total time spent is greater than 50% in coordination of care (as documented) at patient's floor/unit and/or counseling patient: - Subjective Interval history: encephalpathy seems to be geting better, not much b/ wheexing lungs - Constitutional Vitals: Temp Pulse Resp BP Pulse Ox 97.6 F 72 18 159/78 95 12/19/17 07:00 12/19/17 07:00 12/19/17 07:00 12/19/17 07:00 12/19/17 07:00 General appearance: Present: A&O X 1, disheveled, mild distress. Absent: cooperative, answers questions appropriately Internal Medicine: Result - Labs CBC & Chem 7: 12/19/17 04:36 12/19/17 04:36 Labs: Short CBC 12/18/17 12/18/17 12/19/17 Range/Units 09:29 14:00 04:36 WBC 7.7 6.6 (4.3-11.1) K/mcL Hgb 11.1 L 8.8 L D 9.2 L (11.5-15.4) g/dL Hct 33.1 L 26.1 L 27.4 L (35.3-44.9) % Plt Count 44 L 54 L (140-400) K/mcL Neutrophils # 5.9 4.8 (1.6-8.9) K/mcL BMP 12/19/17 04:36 Sodium 139 Potassium 3.0 L Chloride 114 H Carbon Dioxide 20 L BUN 22 H Creatinine 0.87 Glucose 115 H Calcium 8.1 L Liver Function 12/19/17 Range/Units 04:36 Total Bilirubin 0.9 (0.3-1.0) mg/dL Direct Bilirubin 0.4 H (0.0-0.2) mg/dL AST 55 H (13-39) Units/L ALT 40 (7-52) Units/L Alkaline Phosphatase 85 (34-104) Units/L Albumin 2.4 L (3.5-5.7) g/dL - ABG Interpretation ABG results: ABG ABG pH 7.39 pH Units (7.32-7.45) 12/17/17 11:57 ABG pCO2 28 mmHg (35-45) L 12/17/17 11:57 ABG pO2 122 mmHg (85-104) H 12/17/17 11:57 ABG O2 Saturation 99 % (95-98) H 12/17/17 11:57 PT/INR, D-dimer PT 13.5 Seconds (9.4-12.1) H 12/19/17 04:36 - Impressions Impressions Head CT 12/18/17 09:55 IMPRESSION: No acute intracranial abnormality. D/ / Hawk Tran MD / Hawk Tran MD Interpreting Provider: Hawk Tran MD Chest X-Ray 12/18/17 16:10 IMPRESSION: Increasing patchy consolidation throughout both lungs, greater in the left lower lung. Findings are most compatible with multifocal pneumonia. That should be followed to resolution. D/ / Javan Ruth MD / Javan Ruth MD Interpreting Provider: Javan Ruth MD - VTE Documentation of Mechanical Device: Intermittent pneumatic compression device Consult Discharge Plan - Plan Referrals: Kerry Farris MD [Primary Care Provider] -
[2017-12-19] MEDS ORDERED: Furosemide 20 MG/2 ML VIAL IVP ONE (13:44)
[2017-12-19] MEDS ORDERED: *HR* LORazepam 0.5 MG TABLET PO PRN (13:58)
--- NOTE | 2017-12-19 14:11 | Internal Med Progress Note ---
Date of Encounter: 12/19/17 Time of Encounter: 14:08 - Assessment and plan (1) Sepsis Current Visit: Yes Status: Acute Assessment and plan: Does meet sepsis criteri with Fever, sinus tachycardia, delirium and source of inf as PNA/ UTI Blood cx - NGTD Urine cx from PCP office - E. Coli cont broad spec abx Zosyn and Vanc Qualifiers: Sepsis type: sepsis due to unspecified organism Qualified Code(s): A41.9 - Sepsis, unspecified organism (2) Encephalopathy Current Visit: Yes Status: Acute Assessment and plan: Acute toxic encephaloptahy due to sepsis with PNA and UTI/ Pyelonephritis Improving today she is more alert, awake and O x [address] of head, MRI of Brain - negative for CVA (3) PNA (pneumonia) Current Visit: Yes Status: Acute Assessment and plan: Reviewed CXR from 12/18 showed multi focal pna her strep PNA and Legionella are negative Resp viral panel - negative suspecting aspiration PNA cont empirical abx Zosyn and added Vanco Qualifiers: Pneumonia type: due to unspecified organism Laterality: right Lung location: lower lobe of lung Qualified Code(s): J18.1 - Lobar pneumonia, unspecified organism (4) Thrombocytopenia Current Visit: Yes Status: Acute Assessment and plan: Due to sepsis improving s/p 1U transfusion Cont close monitoring she does have h/o ITP and chronic thrombocytopenia (5) Acute kidney injury Current Visit: Yes Status: Acute Assessment and plan: Due to obstructive uropathy, sepsis and dehydration resolved (6) Supratherapeutic INR Current Visit: Yes Status: Acute Assessment and plan: due to sepsis s/p 2 U FFP and Vit K improved now resumed Coumadin (7) Left ureteral calculus Current Visit: Yes Status: Acute Assessment and plan: s/p left ureteral stone extraction left retrograde pyelogram and left ureteral stent placement stable now (8) Seizure disorder Current Visit: Yes Status: Chronic Assessment and plan: continue home meds neurology seeing in consultation; appreciate recommendations (9) UTI (urinary tract infection) Current Visit: Yes Status: Acute Assessment and plan: urine cx from PCP office gre E. Coli cont Zosyn Qualifiers: Urinary tract infection type: acute cystitis Hematuria presence: with hematuria Qualified Code(s): N30.01 - Acute cystitis with hematuria (10) Antiphospholipid syndrome Current Visit: Yes Status: Chronic Assessment and plan: resumed Coumadin Heme Onc consulted (11) Hypophosphatemia Current Visit: Yes Status: Acute Assessment and plan: cont replacing (12) Hypokalemia Current Visit: Yes Status: Acute Assessment and plan: cont replacing - Time Spent With Patient Total time spent is greater than 50% in coordination of care (as documented) at patient's floor/unit and/or counseling patient: - Subjective Interval history: Ms. Jackson is a 57 y/o F with known subcoritical cognitive deficits, HLD, HTN, CKD III, Seizure disorder, Hypothyroid, Anti-phospholipid syndrome on chronic Warfarin presented to the emergency department on Thursday afternoon with altered mental status. She was found to have left sided hydronephrosis secondary to a 5mm distal ureteral calculus and clinical picture of pylonephritis. Her CXR demonstrated right basilar atelectasis vs pneumonia. She was seen by Urology and underwent left ureteroscope stone extraction, stent placement and retrograde pyelogram. Pt was started on empirical abx Rocephin + Azithromycin. Her INR seems to be worsening and platelets were dropping down. Pt became more lethargic, and delirious, sp pt was transferred to step down unit for further care Now she is alert, awake and O x 3. Denied any [place], visual changes. Talked to pt' s at bed side and explained to him about current care. No events over night. She still looks lethargic / weak and tired. - Constitutional Vitals: Temp Pulse Resp BP Pulse Ox 98.4 F 76 18 145/73 92 12/19/17 11:08 12/19/17 11:08 12/19/17 11:08 12/19/17 11:08 12/19/17 11:08 General appearance: Present: cooperative, A&O X 3, no acute distress, answers questions appropriately Exam: Looks weak and lethargic - Neck Neck exam general surgery: Present: supple - Respiratory Respiratory exam: Present: decreased breath sounds. Absent: rales, respiratory distress, rhonchi, wheezes - Cardiovascular Cardiovascular exam: Present: RRR, +S1, +S2. Absent: tachycardia - GI/Abdominal GI/Abdominal exam: Present: normal bowel sounds, soft. Absent: rebound, rigid, tenderness - Extremities Exam Extremities exam: Absent: calf tenderness, pedal edema, tenderness - Back Exam Back exam: Absent: CVA tenderness (L), CVA tenderness (R) - Neurological Exam Neurological exam: Present: alert, oriented X3 - Psychiatric Psychiatric exam: Present: normal affect, normal mood - Skin Skin exam: Absent: rash Internal Medicine: Result - Labs CBC & Chem 7: 12/19/17 04:36 12/19/17 04:36 Labs: Short CBC 12/18/17 12/19/17 Range/Units 14:00 04:36 WBC 7.7 6.6 (4.3-11.1) K/mcL Hgb 8.8 L D 9.2 L (11.5-15.4) g/dL Hct 26.1 L 27.4 L (35.3-44.9) % Plt Count 44 L 54 L (140-400) K/mcL Neutrophils # 5.9 4.8 (1.6-8.9) K/mcL BMP 12/19/17 04:36 Sodium 139 Potassium 3.0 L Chloride 114 H Carbon Dioxide 20 L BUN 22 H Creatinine 0.87 Glucose 115 H Calcium 8.1 L Liver Function 12/19/17 Range/Units 04:36 Total Bilirubin 0.9 (0.3-1.0) mg/dL Direct Bilirubin 0.4 H (0.0-0.2) mg/dL AST 55 H (13-39) Units/L ALT 40 (7-52) Units/L Alkaline Phosphatase 85 (34-104) Units/L Albumin 2.4 L (3.5-5.7) g/dL - ABG Interpretation ABG results: ABG ABG pH 7.39 pH Units (7.32-7.45) 12/17/17 11:57 ABG pCO2 28 mmHg (35-45) L 12/17/17 11:57 ABG pO2 122 mmHg (85-104) H 12/17/17 11:57 ABG O2 Saturation 99 % (95-98) H 12/17/17 11:57 PT/INR, D-dimer PT 13.5 Seconds (9.4-12.1) H 12/19/17 04:36 - Impressions Impressions Chest X-Ray 12/18/17 16:10 IMPRESSION: Increasing patchy consolidation throughout both lungs, greater in the left lower lung. Findings are most compatible with multifocal pneumonia. That should be followed to resolution. D/ / Javan Ruth MD / Javan Ruth MD Interpreting Provider: Javan Ruth MD - VTE Documentation of Mechanical Device: Intermittent pneumatic compression device Consult Discharge Plan - Plan Referrals: Kerry Farris MD [Primary Care Provider] -
[2017-12-19] MEDS ORDERED: Ipratropium/Albuterol Neb 3 ML IH PRN (14:20)
[2017-12-19] MEDS ORDERED: Vancomycin 1,000 MG VIAL ONE (15:33)
[2017-12-19] MEDS ORDERED: Warfarin perPT PO PRN (18:00)
[2017-12-19] MEDS: traZODone 50 MG TABLET PO SCH (20:27)
[2017-12-20 03:45] LABS: Basophils % 0.1 %; Hemoglobin 9.9 g/dL (11.5-15.4)
[2017-12-20 03:46] LABS: Eosinophils # 0.2 K/mcL (0.0-0.6); Eosinophils % 2.6 %; Hematocrit 29.1 % (35.3-44.9); Immature Granulocytes % 4.6 % (0-4); Immature Platelets 4.8 % (1.1-6.1); Lymphocytes # 1.5 K/mcL (0.6-4.6); Lymphocytes % 22.2 %; Mean Corpuscular Hemoglobin 32.2 pg (28.0-33.3); Mean Corpuscular Volume 94.8 fL (83.0-100.0); Mean Platelet Volume 11.2 fL (9.4-12.4); Monocytes # 0.5 K/mcL (0.0-1.3); Monocytes % 7.8 %; Neutrophils # 4.3 K/mcL (1.6-8.9); Red Blood Count 3.07 M/mcL (3.82-4.97); Red Cell Distribution Width 14.3 % (11.5-14.5); Segmented Neutrophils % 62.7 %
[2017-12-20 03:52] LABS: Platelet Count 78 K/mcL (140-400)
[2017-12-20 03:54] LABS: INR 1.5; Prothrombin Time 16.6 Seconds (9.4-12.1)
[2017-12-20 04:03] LABS: BUN/Creatinine Ratio 15 (6-26); Blood Urea Nitrogen 13 mg/dL (6-20); Calcium 8.5 mg/dL (8.6-10.3); Carbon Dioxide 17 mEq/L (23-29); Chloride 112 mEq/L (98-107); Glucose 85 mg/dL (70-105); Osmolality,Calculated 281 (280-300); Potassium 3.6 mEq/L (3.5-5.1); Sodium 136 mEq/L (136-145); eGFR For African Americans > 60 (> 60); eGFR For Non-African Americans > 60 (> 60)
[2017-12-20] MEDS: FLUoxetine 20 MG CAPSULE PO SCH (08:51)
[2017-12-20] MEDS: Piperacillin/Tazobactam 3.375 GM in 0.9 % Sodium Chloride Mini Bag 100 ML IVPB SCH ×2 (08:52→18:14)
[2017-12-20] MEDS: Famotidine 20 MG TABLET PO SCH (08:52)
[2017-12-20] MEDS: BuPROPion SR (12 HR) 150 MG TABLET PO SCH ×2 (08:52→12:55)
[2017-12-20] MEDS: Topiramate 25 MG TABLET PO SCH ×2 (09:00→20:32)
[2017-12-20] MEDS: Acetaminophen 325 MG TABLET PO PRN ×2 (09:00→20:39)
--- NOTE | 2017-12-20 13:10 | Internal Med Progress Note ---
Date of Encounter: 12/20/17 Time of Encounter: 10:45 - Assessment and plan (1) Sepsis Current Visit: Yes Status: Acute Assessment and plan: Did meet sepsis criteria with Fever, sinus tachycardia, delirium and source of inf as PNA/ UTI Blood cx - NGTD Urine cx from PCP office - E. Coli cont broad spec abx Zosyn and Vanc Qualifiers: Sepsis type: sepsis due to unspecified organism Qualified Code(s): A41.9 - Sepsis, unspecified organism (2) Encephalopathy Current Visit: Yes Status: Acute Assessment and plan: Acute toxic encephaloptahy due to sepsis with PNA and UTI/ Pyelonephritis Improving today she is more alert, awake and O x [address] of head, MRI of Brain - negative for CVA (3) PNA (pneumonia) Current Visit: Yes Status: Acute Assessment and plan: Reviewed CXR from 12/18 showed multi focal pna her strep PNA and Legionella are negative Resp viral panel - negative suspecting aspiration PNA cont empirical abx Zosyn and added Vanco Qualifiers: Pneumonia type: due to unspecified organism Laterality: right Lung location: lower lobe of lung Qualified Code(s): J18.1 - Lobar pneumonia, unspecified organism (4) Thrombocytopenia Current Visit: Yes Status: Acute Assessment and plan: Due to sepsis improving s/p 1U transfusion Cont close monitoring she does have h/o ITP and chronic thrombocytopenia (5) Acute kidney injury Current Visit: Yes Status: Acute Assessment and plan: Due to obstructive uropathy, sepsis and dehydration resolved (6) Supratherapeutic INR Current Visit: Yes Status: Acute Assessment and plan: due to sepsis s/p 2 U FFP and Vit K improved now resumed Coumadin (7) Left ureteral calculus Current Visit: Yes Status: Acute Assessment and plan: s/p left ureteral stone extraction left retrograde pyelogram and left ureteral stent placement stable now (8) Seizure disorder Current Visit: Yes Status: Chronic Assessment and plan: continue home meds neurology seeing in consultation; appreciate recommendations (9) UTI (urinary tract infection) Current Visit: Yes Status: Acute Assessment and plan: urine cx from PCP office gre E. Coli cont Zosyn Qualifiers: Urinary tract infection type: acute cystitis Hematuria presence: with hematuria Qualified Code(s): N30.01 - Acute cystitis with hematuria (10) Antiphospholipid syndrome Current Visit: Yes Status: Chronic Assessment and plan: resumed Coumadin Heme Onc consulted (11) Hypophosphatemia Current Visit: Yes Status: Acute Assessment and plan: cont replacing (12) Hypokalemia Current Visit: Yes Status: Acute Assessment and plan: cont replacing (13) Physical deconditioning Current Visit: Yes Status: Acute Assessment and plan: PT / OT eval - P - Time Spent With Patient Total time spent is greater than 50% in coordination of care (as documented) at patient's floor/unit and/or counseling patient: - Subjective Interval history: Ms. Jackson is a 57 y/o F with known subcoritical cognitive deficits, HLD, HTN, CKD III, Seizure disorder, Hypothyroid, Anti-phospholipid syndrome on chronic Warfarin presented to the emergency department on Thursday afternoon with altered mental status. She was found to have left sided hydronephrosis secondary to a 5mm distal ureteral calculus and clinical picture of pylonephritis. Her CXR demonstrated right basilar atelectasis vs pneumonia. She was seen by Urology and underwent left ureteroscope stone extraction, stent placement and retrograde pyelogram. Pt was started on empirical abx Rocephin + Azithromycin. Her INR seems to be worsening and platelets were dropping down. Pt became more lethargic, and delirious, sp pt was transferred to step down unit for further care Now she is more alert, awake and O x 3. Denied any [place], visual changes. No events over night. Talked to pt's at bed side and explained to him about current care. - Constitutional Vitals: Temp Pulse Resp BP Pulse Ox 98.1 F 75 14 130/74 96 12/20/17 11:33 12/20/17 11:33 12/20/17 04:30 12/20/17 11:33 12/20/17 04:30 General appearance: Present: cooperative, A&O X 3, no acute distress, answers questions appropriately - Head Head exam: Present: atraumatic, normal inspection - Neck Neck exam general surgery: Present: supple - Respiratory Respiratory exam: Present: decreased breath sounds. Absent: rales, respiratory distress, rhonchi, wheezes - Cardiovascular Cardiovascular exam: Present: RRR, +S1, +S2. Absent: tachycardia - GI/Abdominal GI/Abdominal exam: Present: normal bowel sounds, soft. Absent: rebound, rigid, tenderness - Extremities Exam Extremities exam: Absent: calf tenderness, pedal edema, tenderness - Back Exam Back exam: Absent: CVA tenderness (L), CVA tenderness (R) Internal Medicine: Result - Labs CBC & Chem 7: 12/20/17 03:25 12/20/17 03:25 Labs: Short CBC 12/20/17 Range/Units 03:25 WBC 6.8 (4.3-11.1) K/mcL Hgb 9.9 L (11.5-15.4) g/dL Hct 29.1 L (35.3-44.9) % Plt Count 78 L (140-400) K/mcL Neutrophils # 4.3 (1.6-8.9) K/mcL BMP 12/20/17 03:25 Sodium 136 Potassium 3.6 Chloride 112 H Carbon Dioxide 17 L BUN 13 Creatinine 0.89 Glucose 85 Calcium 8.5 L - ABG Interpretation ABG results: ABG ABG pH 7.39 pH Units (7.32-7.45) 12/17/17 11:57 ABG pCO2 28 mmHg (35-45) L 12/17/17 11:57 ABG pO2 122 mmHg (85-104) H 12/17/17 11:57 ABG O2 Saturation 99 % (95-98) H 12/17/17 11:57 PT/INR, D-dimer PT 16.6 Seconds (9.4-12.1) H 12/20/17 03:25 - Impressions Impressions Chest X-Ray 12/19/17 13:43 IMPRESSION: 1. Interval development of left basilar consolidation and pleural effusion which may be related to pneumonia. 2. Calcific atherosclerotic disease aorta. 3. Chronic appearing coarse interstitial densities predominate parahilar regions and lung bases, typical of sequela from smoking or other previous infectious/inflammatory process. D/ / Heriberto Chand / Heriberto Chand Interpreting Provider: Heriberto Chand - VTE Documentation of Mechanical Device: Intermittent pneumatic compression device Consult Discharge Plan - Plan Referrals: Kerry Farris MD [Primary Care Provider] -
[2017-12-20] MEDS ORDERED: *HR* Warfarin 2.5 MG TABLET PO ONE (18:00)
[2017-12-20] MEDS: traZODone 50 MG TABLET PO SCH (20:32)
[2017-12-21] MEDS: Piperacillin/Tazobactam 3.375 GM in 0.9 % Sodium Chloride Mini Bag 100 ML IVPB SCH ×3 (01:25→16:31)
[2017-12-21 06:45] LABS: Basophils # 0.1 K/mcL (0.0-0.2); Basophils % 0.8 %; Eosinophils # 0.2 K/mcL (0.0-0.6); Eosinophils % 2.9 %; Hematocrit 31.5 % (35.3-44.9); Hemoglobin 10.3 g/dL (11.5-15.4); Immature Granulocytes % 8.2 % (0-4); Lymphocytes # 1.3 K/mcL (0.6-4.6); Lymphocytes % 20.1 %; Mean Corpuscular HGB Conc 32.7 g/dL (31.6-35.5); Mean Corpuscular Volume 94.9 fL (83.0-100.0); Monocytes # 0.4 K/mcL (0.0-1.3); Monocytes % 5.9 %; Neutrophils # 4.1 K/mcL (1.6-8.9); Platelet Count 118 K/mcL (140-400); Red Blood Count 3.32 M/mcL (3.82-4.97); Red Cell Distribution Width 14.4 % (11.5-14.5); Segmented Neutrophils % 62.1 %
[2017-12-21 06:52] LABS: Prothrombin Time 22.1 Seconds (9.4-12.1)
[2017-12-21 07:05] LABS: BUN/Creatinine Ratio 11 (6-26); Blood Urea Nitrogen 10 mg/dL (6-20); Calcium 8.9 mg/dL (8.6-10.3); Carbon Dioxide 20 mEq/L (23-29); Chloride 112 mEq/L (98-107); Glucose 90 mg/dL (70-105); Osmolality,Calculated 283 (280-300); Potassium 3.5 mEq/L (3.5-5.1); Sodium 137 mEq/L (136-145); eGFR For African Americans > 60 (> 60); eGFR For Non-African Americans > 60 (> 60)
[2017-12-21 07:11] LABS: Anisocytosis 1+ (Not Present); Hypochromasia Present (Not Present); Macrocytosis Present (Not Present); Platelet Estimate Decreased (Normal); Toxic Granulation Present (Not Present)
--- NOTE | 2017-12-21 08:41 | Internal Med Progress Note ---
<Solange Hernandez N - Last Filed: 12/21/17 15:33> Date of Encounter: 12/21/17 Time of Encounter: 08:40 - Assessment and plan (1) Sepsis Current Visit: Yes Status: Acute Assessment and plan: Patient is currently afebrile with WBC count within normal limits; however, she did meet sepsis criteria upon initial admission to the hospital, presumably due to pneumonia and UTI. She has been receiving zosyn and vancomycin, with this being approximately day #5 of zosyn and day #2 of vancomycin. Plan to continue these antibiotics today, with deescalation of antibiotics tomorrow. Qualifiers: Sepsis type: sepsis due to unspecified organism Qualified Code(s): A41.9 - Sepsis, unspecified organism (2) UTI (urinary tract infection) Current Visit: Yes Status: Acute Assessment and plan: Urine culture collected at PCP office demonstrated presence of E. coli. Plan to continue zosyn, with transition to PO antibiotics tomorrow in anticipation of near discharge. Qualifiers: Urinary tract infection type: acute cystitis Hematuria presence: with hematuria Qualified Code(s): N30.01 - Acute cystitis with hematuria (3) PNA (pneumonia) Current Visit: Yes Status: Acute Assessment and plan: Suspect secondary to aspiration as respiratory viral panel, strep pneumo antigen , and legionella antigen tests have all been negative. Plan to continue zosyn and vancomycin at this time, with deescalation of antibiotics tomorrow. Qualifiers: Pneumonia type: due to unspecified organism Laterality: right Lung location: lower lobe of lung Qualified Code(s): J18.1 - Lobar pneumonia, unspecified organism (4) Encephalopathy Current Visit: Yes Status: Acute Assessment and plan: Appears resolved, as patient demonstrates no signs of altered mental status today. (5) Supratherapeutic INR Current Visit: Yes Status: Acute Assessment and plan: Resolved. Patient's most recent INR was 2.0. (6) Thrombocytopenia Current Visit: Yes Status: Acute Assessment and plan: Improving. Patient does have a history of antiphospholipid antibody and thrombocytopenia. Plan to continue monitoring. (7) Seizure disorder Current Visit: Yes Status: Chronic Assessment and plan: Stable. Patient's last seizure was in 2005. Plan to continue home medications. (8) Physical deconditioning Current Visit: Yes Status: Acute Assessment and plan: Physical and occupational therapy has evaluated this patient. She will likely qualify for short-term home oxygen therapy. Plan to pursue that prior to discharge. - Time Spent With Patient Total time spent is greater than 50% in coordination of care (as documented) at patient's floor/unit and/or counseling patient: - Subjective Interval history: Ms. Jackson is a 57-year old female who was admitted due to sepsis and altered mental status. The cause of her sepsis was determined to be secondary to pneumonia/UTI. She is currently sitting in the chair at the bedside. She is alert and oriented x 3. She expresses concern for the SOB with exertion she is currently experiencing, stating that she does not use oxygen at home. She expresses no other complaints or concerns at this time. When asked, she states that she does not feel ready to go home yet. - Constitutional Vitals: Temp Pulse Resp BP Pulse Ox 98.3 F 67 16 136/67 96 12/21/17 06:41 12/21/17 06:41 12/21/17 06:41 12/21/17 06:41 12/21/17 06:41 Exam: Pleasant, middle aged female in no acute distress. She is alert and oriented x 3. She answers questions appropriately. - Head Additional comments: Atraumatic and normocephalic. Nasal canula in place. - Respiratory Additional comments: Clear bilaterally. Occasional expiratory wheeze present. - Cardiovascular Additional comments: Regular rate and rhythm. No murmurs, rubs, or gallops. - Extremities Exam Additional comments: Patient moves extremities spontaneously. NO clubbing, cyanosis, or edema present. Internal Medicine: Result - Labs CBC & Chem 7: 12/21/17 06:04 12/21/17 06:04 Labs: Short CBC 12/21/17 Range/Units 06:04 WBC 6.6 (4.3-11.1) K/mcL Hgb 10.3 L (11.5-15.4) g/dL Hct 31.5 L (35.3-44.9) % Plt Count 118 L D (140-400) K/mcL Neutrophils # 4.1 (1.6-8.9) K/mcL BMP 12/21/17 06:04 Sodium 137 Potassium 3.5 Chloride 112 H Carbon Dioxide 20 L BUN 10 Creatinine 0.92 Glucose 90 Calcium 8.9 - ABG Interpretation ABG results: ABG ABG pH 7.39 pH Units (7.32-7.45) 12/17/17 11:57 ABG pCO2 28 mmHg (35-45) L 12/17/17 11:57 ABG pO2 122 mmHg (85-104) H 12/17/17 11:57 ABG O2 Saturation 99 % (95-98) H 12/17/17 11:57 PT/INR, D-dimer PT 22.1 Seconds (9.4-12.1) H 12/21/17 06:04 - VTE Documentation of Mechanical Device: Intermittent pneumatic compression device Consult Discharge Plan - Plan Instructions: Urinary Tract Infection in Women (DC), Renal Failure Diet (DC), Renal Failure Diet (GEN), Sepsis (DC), Chronic Hypertension (DC), Pneumonia (DC) Referrals: Kerry Farris MD [Primary Care Provider] - <ViryMindy - Last Filed: 12/21/17 17:13> Date of Encounter: 12/21/17 - Assessment and plan (1) Thrombocytopenia Current Visit: Yes Status: Acute (2) Supratherapeutic INR Current Visit: Yes Status: Acute (3) Encephalopathy Current Visit: Yes Status: Acute (4) PNA (pneumonia) Current Visit: Yes Status: Acute Qualifiers: Pneumonia type: due to unspecified organism Laterality: right Lung location: lower lobe of lung Qualified Code(s): J18.1 - Lobar pneumonia, unspecified organism (5) Seizure disorder Current Visit: Yes Status: Chronic (6) UTI (urinary tract infection) Current Visit: Yes Status: Acute Qualifiers: Urinary tract infection type: acute cystitis Hematuria presence: with hematuria Qualified Code(s): N30.01 - Acute cystitis with hematuria (7) Sepsis Current Visit: Yes Status: Acute Qualifiers: Sepsis type: sepsis due to unspecified organism Qualified Code(s): A41.9 - Sepsis, unspecified organism (8) Physical deconditioning Current Visit: Yes Status: Acute - Time Spent With Patient Total time spent is greater than 50% in coordination of care (as documented) at patient's floor/unit and/or counseling patient: - Constitutional Vitals: Temp Pulse Resp BP Pulse Ox 98.1 F 71 16 122/67 95 12/21/17 15:28 12/21/17 15:28 12/21/17 15:28 12/21/17 15:28 12/21/17 15:28 Internal Medicine: Result - Labs CBC & Chem 7: 12/21/17 06:04 12/21/17 06:04 Labs: Short CBC 12/21/17 Range/Units 06:04 WBC 6.6 (4.3-11.1) K/mcL Hgb 10.3 L (11.5-15.4) g/dL Hct 31.5 L (35.3-44.9) % Plt Count 118 L D (140-400) K/mcL Neutrophils # 4.1 (1.6-8.9) K/mcL BMP 12/21/17 06:04 Sodium 137 Potassium 3.5 Chloride 112 H Carbon Dioxide 20 L BUN 10 Creatinine 0.92 Glucose 90 Calcium 8.9 - ABG Interpretation ABG results: ABG ABG pH 7.39 pH Units (7.32-7.45) 12/17/17 11:57 ABG pCO2 28 mmHg (35-45) L 12/17/17 11:57 ABG pO2 122 mmHg (85-104) H 12/17/17 11:57 ABG O2 Saturation 99 % (95-98) H 12/17/17 11:57 PT/INR, D-dimer PT 22.1 Seconds (9.4-12.1) H 12/21/17 06:04 - Attending Attestation I examined this patient and my medical decision-making was reviewed with the Resident Physician Dr. Hernandez. I agree with the documented findings, disposition and treatment plan as described except to the extent set forth below. Ms. Jackson is a 57 y/o F with known subcoritical cognitive deficits, HLD, HTN, CKD III, Seizure disorder, Hypothyroid, Anti-phospholipid syndrome on chronic Warfarin presented to the emergency department on Thursday afternoon with altered mental status. She was found to have left sided hydronephrosis secondary to a 5mm distal ureteral calculus and clinical picture of pylonephritis. Her CXR demonstrated right basilar atelectasis vs pneumonia. She was seen by Urology and underwent left ureteroscope stone extraction, stent placement and retrograde pyelogram. Pt was started on empirical abx Rocephin + Azithromycin. Her INR seems to be worsening and platelets were dropping down. Pt became more lethargic, and delirious, so pt was transferred to step down unit for further care Now she is more alert, awake and O x 3. Denied any [place], visual changes. No events over night. Talked to pt's at bed side and explained to him about current care. Gen: A< A, O x3 Chest: Diminished BS b/l Heart: S1S2+ RRR No murmurs a/p 1. Acute delirium / Toxic encehpaloapathy Due to [place] focal PNA + UTi Urine cx from PCP office - E. Coli Cont Zosyn + vanc 2. Acute UTI / Pyelonephritis 3. Sepsis 4. CAP- Aspiration PNA cont broad spec abx Zosyn 5. NILSA - resolved 6. Left ureter calculi s/p left ureteroscope stone extraction, stent placement and retrograde pyelogram 7. Supra therapeutic INR - due to sepsis 8. Acute on chronic thrombocytopenia - due to sepsis Improving resumed coumadin possible d/c home in AM
[2017-12-21] MEDS: BuPROPion SR (12 HR) 150 MG TABLET PO SCH ×2 (08:46→12:34)
[2017-12-21] MEDS: Famotidine 20 MG TABLET PO SCH (08:47)
[2017-12-21] MEDS: FLUoxetine 20 MG CAPSULE PO SCH (08:47)
[2017-12-21] MEDS: Topiramate 25 MG TABLET PO SCH ×2 (08:47→20:09)
--- NOTE | 2017-12-21 11:00 | Infectious Disease Progress No ---
Date of Encounter: 12/21/17 Time of Encounter: 11:00 - Assessment and Plan (1) Severe sepsis Current Visit: Yes Status: Acute Met SIRS criteria with >10% bandemia, tachycardia, fever with TMAX of 101.1, end organ damage with Cr 1.99 on admission and AMS - Will switch patient to oral levaquin 750 mg X5 days for a 10 day total course of ABX - Blood culture 12/16 negative x2 - Will order CDiff test (2) PNA (pneumonia) Current Visit: Yes Status: Acute - Secondary to unknown organism - Chest x-ray demonstrates possible pneumonia versus atelectasis - Repeat CXR 12/19: Interval development of left basilar consolidation and pleural effusion which may be related to PNA - Resp infection panel negative - Legionella, strep antigen both negative - Will order CXR Qualifiers: Qualified Code(s): J18.1 - Lobar pneumonia, unspecified organism (3) Encephalopathy Current Visit: Yes Status: Acute Secondary to infectious process vs metabolic - Patient was initially aphasic; this has since resolved - Both head CT and MRI showed no acute process - EEG was obtained, showed no clear paroxysmal activities or epileptiform discharges; showed prominent delta activity in the anterior/posterior regions, consistent with encephalopathy - Resolved (4) Nephrolithiasis Current Visit: Yes Status: Acute Abdomen and pelvis CT demonstrated: - Left hydronephrosis secondary to a 5 mm distal ureter calculus - Bilateral urolithiasis - Noncalcified left lower lobe pulmonary nodule measuring 2 mm - Urology was consulted, patient underwent left-sided ureter stone extraction, left retrograde pyelogram, stent placement on 12/16 - Urology following (5) Seizure disorder Current Visit: Yes Status: Chronic - Continue home meds - Management per primary team (6) HTN (hypertension) Current Visit: Yes Status: Acute - Management per primary team Qualifiers: Qualified Code(s): I10 - Essential (primary) hypertension (7) Coumadin toxicity Current Visit: Yes Status: Acute - Elevated PT - Coumadin has been resumed after FFP and Vitamin K Qualifiers: Qualified Code(s): T45.511A - Poisoning by anticoagulants, accidental ( unintentional), initial encounter - Subjective Interval history: Patient was seen and examined at bedside this morning. Reports that she is feeling much better today than she did last week. Denies lethargy, confusion, headache. No complaints at this time. Infect Dis PN-Objective Data - Labs CBC & Chem 7: 12/22/17 05:37 12/22/17 05:37 Labs: Laboratory Results - last 24 hr 12/21/17 12/21/17 12/21/17 06:04 06:04 06:04 WBC 6.6 RBC 3.32 L Hgb 10.3 L Hct 31.5 L MCV 94.9 MCH 31.0 MCHC 32.7 RDW 14.4 Plt Count 118 L D MPV 11.0 Immature Gran % 8.2 H Seg Neutrophils % 62.1 Lymphocytes % 20.1 Monocytes % 5.9 Eosinophils % 2.9 Basophils % 0.8 Neutrophils # 4.1 Lymphocytes # 1.3 Monocytes # 0.4 Eosinophils # 0.2 Basophils # 0.1 Toxic Granulation Present A Platelet Estimate Decreased L Hypochromasia Present A Anisocytosis 1+ A Macrocytosis Present A PT 22.1 H INR 2.0 Sodium 137 Potassium 3.5 Chloride 112 H Carbon Dioxide 20 L BUN 10 Creatinine 0.92 Est GFR ( Amer) > 60 Est GFR (Non-Af Amer) > 60 BUN/Creatinine Ratio 11 Glucose 90 Calculated Osmolality 283 Calcium 8.9 Cultures: Cultures 12/17/17 12:45 Urine Culture - Final Urine,Catheterized No growth. 12/17/17 21:15 Urine Culture - Final Urine,Catheterized No growth. 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 YES A (NO) Chlamy pneumoniae PCR Not Detected (Not Detect) Adenovirus (PCR) Not Detected (Not Detect) B. pertussis DNA (PCR) Not Detected (Not Detect) B.parapertussis DNA PCR Not Detected (Not Detect) Coronavirus OC43 (PCR) Not Detected (Not Detect) Coronavirus HKU1 (PCR) Not Detected (Not Detect) Coronavirus 229E (PCR) Not Detected (Not Detect) Coronavirus NL63 (PCR) Not Detected (Not Detect) Human Metapneumovir PCR Not Detected (Not Detect) Influenza A (H1) PCR Not Detected (Not Detect) Influ A (H1N1/09) PCR Not Detected (Not Detect) Influenza A (H3) PCR Not Detected (Not Detect) Influenza A Untype (PCR) Not Detected (Not Detect) Influenza Type B (PCR) Not Detected (Not Detect) M.pneumoniae DNA (PCR) Not Detected (Not Detect) Parainfluenza 1 (PCR) Not Detected (Not Detect) Parainfluenza 2 (PCR) Not Detected (Not Detect) Parainfluenza 3 (PCR) Not Detected (Not Detect) Parainfluenza 4 (PCR) Not Detected (Not Detect) RSV (PCR) Not Detected (Not Detect) Entero/Rhino (PCR) Not Detected (Not Detect) Exam - Constitutional Vitals: Temp Pulse Resp BP Pulse Ox 98.3 F 67 16 136/67 96 12/21/17 06:41 12/21/17 06:41 12/21/17 06:41 12/21/17 06:41 12/21/17 08:58 - Additional findings Additional findings: - Head Head exam: Present: atraumatic, normal inspection, normocephalic - Eye Eye exam: Present: EOMI, PERRL, sclera anicteric - ENT ENT exam: Present: mucous membranes moist Additional comments: No oral lesions. - Neck Neck exam: Present: full ROM. Absent: meningismus - Respiratory Respiratory exam: Present: CTAB. Absent: rales, rhonchi, tachypnea - Cardiovascular Cardiovascular exam: Present: RRR, +S1, +S2. Absent: bradycardia, tachycardia - GI/Abdominal GI/Abdominal exam: Present: soft. Absent: tenderness - Extremities Exam Extremities exam: Present: full ROM, normal inspection. Absent: pedal edema - Neurological Exam Neurological exam: Present: oriented X3. Absent: speech deficit - Psychiatric Psychiatric exam: Present: normal affect, normal mood - Skin Skin exam: Present: normal color. Absent: rash - VTE Documentation of Mechanical Device: Intermittent pneumatic compression device Consult Discharge Plan - Plan Instructions: Urinary Tract Infection in Women (DC), Renal Failure Diet (DC), Renal Failure Diet (GEN), Sepsis (DC), Chronic Hypertension (DC), Pneumonia (DC) Referrals: Kerry Farris MD [Primary Care Provider] - - Attending Attestation I examined this patient and my medical decision-making was reviewed with the Resident Physician. I agree with the documented findings, disposition and treatment plan as described except to the extent set forth below.
[2017-12-21] MEDS ORDERED: Vancomycin 500 MG in 0.9 % Sodium Chloride Mini Bag 100 ML IVPB SCH (16:00)
--- NOTE | 2017-12-21 16:21 | Oncology Inp Progress Note ---
Date of Encounter: 12/21/17 Time of Encounter: 11:00 (1) Elevated INR Current Visit: Yes Status: Acute Assessment and plan: Resolved, prior elevation likely secondary to sepsis picture Restarted coumadin, INR 2 today Appreciate continued management per primary and pharmacy service (2) Thrombocytopenia Current Visit: Yes Status: Acute Assessment and plan: Improving, again was likely secondary to infectious process/sepsis Expect to resolve with continued treatment of infectious process, managed per ID and hospitalist team No s/s bleeding (3) Antiphospholipid syndrome Current Visit: Yes Status: Chronic Assessment and plan: Restarted coumadin, she did have antiphospholipid antibodies present on lab recheck with her Dr. Allison a little over one year ago, recommend continued indefinite anticoagulation Patient prefers to continue coumadin which is managed by PCP and coumadin clinic Offered follow up with hematology however patient declined and prefers to continue to follow up with PCP and Coumadin Clinic for management. At this time, hematology will sign off, please feel free to contact in future should questions or concerns arise. Oncology: Subj Interval history: Ms. Jackson is resting in bed, denies pain, reports symptomatic improvement since assessment last week. She is alert and oriented and able to carry on conversation. Her is at bedside. She denies s/s bleeding. - Constitutional Vitals: Vital Signs Temp Pulse Resp BP Pulse Ox 12/21/17 15:28 98.1 F 71 16 122/67 95 12/21/17 11:01 97.6 F 83 17 143/87 97 12/21/17 08:58 96 12/21/17 06:41 98.3 F 67 16 136/67 96 12/21/17 04:25 98.1 F 64 15 123/67 96 12/20/17 19:50 98.3 F 79 16 115/96 93 Intake and Output 12/21/17 12/21/17 12/21/17 07:59 15:59 23:59 Intake Total 220 / 220 360 / 360 Output Total 0 / 0 450 / 450 Balance 220 / 220 -90 / -90 Intake: IV Fluids 100 / 100 Zosyn 3.375 GM In 0.9 % Sodium 100 / 100 Chloride (Mini-Bag +) 100 ML @ 25 mls/hr IVPB Q8HR [facility] Rx#: [id number] Oral 120 / 120 360 / 360 Output: Urine 0 / 0 450 / 450 Other: Meal Lunch Percent of Meal Consumed 0% Stool Size Small Stool Consistency liquid # Voids 1 # Bowel Movements 1 Weight 60.5 kg Patient Weight 12/21/17 23:59 Weight 60.5 kg General appearance: cooperative, no acute distress, no febrile - Head Head exam: Present: atraumatic - ENT ENT exam: Present: mucous membranes moist - Respiratory Respiratory exam: Present: decreased breath sounds, CTAB. Absent: respiratory distress - Cardiovascular Cardiovascular exam: Present: RRR, +S1, +S2 - GI/Abdominal GI/Abdominal exam: Present: normal bowel sounds, soft. Absent: guarding, rebound, tenderness - Extremities Exam Extremities exam: Present: normal inspection. Absent: calf tenderness - Neurological Exam Neurological exam: Present: alert, oriented X3, no focal deficits, strengths equal and symetr throughout - Psychiatric Psychiatric exam: Present: normal affect, normal mood Oncology: Obj Data - Labs CBC & Chem 7: 12/21/17 06:04 12/21/17 06:04 - ABG Interpretation ABG results: ABG ABG pH 7.39 pH Units (7.32-7.45) 12/17/17 11:57 ABG pCO2 28 mmHg (35-45) L 12/17/17 11:57 ABG pO2 122 mmHg (85-104) H 12/17/17 11:57 ABG O2 Saturation 99 % (95-98) H 12/17/17 11:57 PT/INR, D-dimer PT 22.1 Seconds (9.4-12.1) H 12/21/17 06:04 Consult Discharge Plan - Plan Instructions: Urinary Tract Infection in Women (DC), Renal Failure Diet (DC), Renal Failure Diet (GEN), Sepsis (DC), Chronic Hypertension (DC), Pneumonia (DC) Referrals: Kerry Farris MD [Primary Care Provider] -
[2017-12-21] MEDS ORDERED: *HR* Warfarin 3 MG TABLET PO ONE (18:00)
[2017-12-21] MEDS: traZODone 50 MG TABLET PO SCH (20:11)
[2017-12-22] MEDS: Famotidine 20 MG TABLET PO SCH (05:35)
[2017-12-22 05:56] LABS: Hematocrit 30.2 % (35.3-44.9); Hemoglobin 9.9 g/dL (11.5-15.4); Mean Corpuscular HGB Conc 32.8 g/dL (31.6-35.5); Mean Corpuscular Hemoglobin 31.5 pg (28.0-33.3); Mean Corpuscular Volume 96.2 fL (83.0-100.0); Mean Platelet Volume 10.2 fL (9.4-12.4); Platelet Count 138 K/mcL (140-400); Red Blood Count 3.14 M/mcL (3.82-4.97); Red Cell Distribution Width 14.5 % (11.5-14.5)
[2017-12-22 06:02] LABS: INR 2.6; Prothrombin Time 29.7 Seconds (9.4-12.1)
[2017-12-22 06:18] LABS: BUN/Creatinine Ratio 8 (6-26); Blood Urea Nitrogen 7 mg/dL (6-20); Calcium 9.4 mg/dL (8.6-10.3); Carbon Dioxide 20 mEq/L (23-29); Chloride 114 mEq/L (98-107); Glucose 80 mg/dL (70-105); Osmolality,Calculated 285 (280-300); Potassium 3.4 mEq/L (3.5-5.1); Sodium 139 mEq/L (136-145); eGFR For African Americans > 60 (> 60); eGFR For Non-African Americans > 60 (> 60)
[2017-12-22 06:31] LABS: Eosinophils # 0.7 K/mcL (0.0-0.6); Lymphocytes # 1.5 K/mcL (0.6-4.6); Monocytes # 0.3 K/mcL (0.0-1.3); Neutrophils # 3.1 K/mcL (1.6-8.9); Platelet Estimate Slight Decrease (Normal); Toxic Granulation Present (Not Present)
[2017-12-22 06:32] LABS: Hypochromasia Present (Not Present); Macrocytosis Present (Not Present)
[2017-12-22] MEDS: Topiramate 25 MG TABLET PO SCH (08:01)
[2017-12-22] MEDS: BuPROPion SR (12 HR) 150 MG TABLET PO SCH ×2 (08:01→12:42)
[2017-12-22] MEDS: FLUoxetine 20 MG CAPSULE PO SCH (08:01)
[2017-12-22] MEDS ORDERED: levoFLOXacin 750 MG TABLET PO SCH (09:00)
--- NOTE | 2017-12-22 10:12 | Discharge Summary ---
<Solange Hernandez N - Last Filed: 12/22/17 17:17> - NOTES TO OUTPATIENT PROVIDER Notes to Outpatient Provider: Patient presented with altered mental status secondary to pneumonia and UTI. She was found to have NILSA and left hydronephrosis due to ureteral obstruction. Obstruction was removed and NILSA resolved during hospitalization. Patient continued antibiotics for pneumonia and UTI. Mental status improved over hospital stay and patient demonstrated return to baseline prior to discharge. She was discharged with an additional 5 days of levaquin for UTI/pneumonia. Orders not resulted at time of discharge: Pending orders 12/22/17 04:00 C diff [C.difficile Toxin PCR (>=2yo)] [MOLMIC] AM 0400 12/23/17 04:00 BMP [Basic Metabolic Panel] AM 0400 Complete Blood Count [HEME] AM 0400 PT/INR [Prothrombin Time INR] [COAG] AM 0400 12/24/17 04:00 BMP [Basic Metabolic Panel] AM 0400 Complete Blood Count [HEME] AM 0400 PT/INR [Prothrombin Time INR] [COAG] AM 0400 12/25/17 04:00 BMP [Basic Metabolic Panel] AM 0400 Complete Blood Count [HEME] AM 0400 PT/INR [Prothrombin Time INR] [COAG] AM 0400 Date of Encounter: 12/22/17 Time of Encounter: 10:12 - Discharge Diagnosis (1) Sepsis Priority: Primary Status: Acute Qualifiers: Sepsis type: sepsis due to unspecified organism Qualified Code(s): A41.9 - Sepsis, unspecified organism (2) UTI (urinary tract infection) Priority: Secondary Status: Acute Qualifiers: Urinary tract infection type: acute cystitis Hematuria presence: with hematuria Qualified Code(s): N30.01 - Acute cystitis with hematuria (3) PNA (pneumonia) Priority: Secondary Status: Acute Qualifiers: Pneumonia type: due to unspecified organism Laterality: right Lung location: lower lobe of lung Qualified Code(s): J18.1 - Lobar pneumonia, unspecified organism (4) Encephalopathy Priority: Secondary Status: Acute (5) Supratherapeutic INR Priority: Secondary Status: Acute (6) Thrombocytopenia Priority: Secondary Status: Acute (7) Seizure disorder Priority: Secondary Status: Chronic (8) Physical deconditioning Priority: Secondary Status: Acute Hospital course: Ms. Jackson is a 57 year old female who presented to the ED on 12/16 with altered mental status. She had been seen by her PCP one day prior and started on ciprofloxacin for a UTI. She had worsening lethargy and confusion, and was brought in by her . ER workup revealed the following: * Acute thrombocytopenia LT count 63 (141 on presentation), CBC otherwise unremarkable, INR 6.0, without any evidence of bleeding, ABG with alkalosis, PH 7.47, PCO2 24, Chem with NILSA, Hyponatremia, Hypokalemia, Hypophosphatemia, LFT unremarkable, trop negative * UA: dirty, Lactic acid WNL * Abd/Pelvis CT: Left hydronephrosis secodnary to a 5mm ureteral calculus, bilateral urolithiasis, biliary sludge , LLL nodule * Head CT: Mild small vessel chronic ischemic changes without acute hemorrhage or definite evidence for acute ischemia. * CXR: Right basilar atelectasis or PNA Urology consult recommended stone removal and stent, which was performed that evening with good success. Patient continued to have some confusion and agitation after that procedure. Neurology was consulted, and suggested continued broad spectrum antibiotics as the patient was inappropriate for LP with her increased INR and low platelet count. She was found to have both pneumonia and a UTI. She received several days of zosyn and vancomycin, with improvement in her WBC count and mental status. Prior to discharge, patient had full resolution of confusion and agitation, and her stated she was back to her baseline. Patient was discharged with an additional 5 days of levaquin per recommendation from ID. - Time Spent with Patient Total time spent providing and/or coordinating discharge services: - Discharge Medications Prescriptions: levoFLOXacin [Levaquin] 750 mg PO DAILY #5 tablet Home Medications: Atorvastatin Calcium [Lipitor] 20 mg PO HS 12/16/17 [History] BuPROPion SR (12 HR) [Wellbutrin SR] 150 mg PO 1200 12/16/17 [History] BuPROPion SR (12 HR) [Wellbutrin SR] 300 mg PO QAM 12/16/17 [History] Calcium Carbonate [Calcium] 500 mg PO DAILY 12/16/17 [History] FLUoxetine HCl [Fluoxetine HCl] 40 mg PO DAILY 12/16/17 [History] Levothyroxine [Synthroid] 100 mcg PO 0630 12/16/17 [History] Ondansetron ODT [Zofran ODT] 4 mg PO DAILY PRN 12/16/17 [History] Potassium Chloride 20 meq PO BID 12/16/17 [History] Quetiapine Fumarate [Seroquel] 50 mg PO HS 12/16/17 [History] Spironolactone [Aldactone] 50 mg PO BID 12/16/17 [History] Topiramate [Topamax] 50 mg PO BID 12/16/17 [History] Trazodone HCl 300 mg PO HS 12/16/17 [History] Warfarin Sodium 2.5 mg PO DAILY 12/16/17 [History] raNITIdine HCl [Ranitidine HCl] 300 mg PO DAILY 12/16/17 [History] levoFLOXacin [Levaquin] 750 mg PO DAILY #5 tablet 12/22/17 [Rx] Allergies/Adverse Reactions: 3 Allergy/AdvReac Type Severity Reaction Status Date / Time divalproex sodium AdvReac See Verified 12/16/17 07:46 [From Depakote] Comments phenytoin [From Dilantin] AdvReac Hives Verified 12/16/17 07:46 Date of admission: 12/16/17 11:40 Primary care physician: Kerry Farris MD Consults: 12/16/17 11:58 Consult to C[employer]eder [CONS] Routine Reason for SW Consult: demntia, seems to be getting worse. 12/17/17 15:42 Consult to Interpret Exam [CONS] Routine Consulting Provider: Nacho Hidalgo I Consult to Interpret Exam: Interpret EEG 12/18/17 09:09 Consult to Oncology Hematology [CONS] Routine Consulting Provider: Anitha Fisher Reason for Consult: Antiphospholipid syndrome Time Notified: 09:11 Call Completed: Yes 12/18/17 09:14 Consult to Infectious Diseases [CONS] Routine Consulting Provider: Infectious Disease [place] Reason for Consult: concern for infectious encephalopathy Time Notified: 09:15 Call Completed: Yes 12/19/17 14:06 Consult to Physical Therapy [CONS] Routine Comment: Evaluate, develop and implement POC Reason for Consult: deconditioning Does patient have active BEDREST order?: No Is patient medically & hemodynamically stable?: Yes Patient assessed for mobility or mobilized this visit?: Yes 12/21/17 15:45 Consult to Nutrition [CONS] Routine Comment: Consulting Provider: NUTRITION Reason for Dietary Consult: Diet Education Discharging clinician: Solange Hernandez Anticipated date of discharge: 12/22/17 - Constitutional Vitals: Temp Pulse Resp BP Pulse Ox 98 F 71 20 143/65 95 12/22/17 07:14 12/22/17 07:14 12/22/17 07:14 12/22/17 07:14 12/22/17 07:14 General appearance: Present: cooperative, A&O X 3, pleasant, no acute distress, answers questions appropriately - Head Head exam: Present: atraumatic, normal inspection, normocephalic - Respiratory Respiratory exam: Present: CTAB. Absent: decreased breath sounds, respiratory distress - Cardiovascular Cardiovascular exam: Present: RRR, +S1, +S2 - Extremities Exam Extremities exam: Present: warm, radial pulses palpable and symmetrical. Absent : calf tenderness, cyanotic, pedal edema - Patient Status Disposition: Home, Self-Care Condition: Fair Functional capacity at discharge: independent ambulation Overall status at discharge: patient is progressing back to baseline - Discharge Instructions Instructions: Levofloxacin (By mouth), Urinary Tract Infection in Women (DC), Renal Failure Diet (DC), Renal Failure Diet (GEN), Sepsis (DC), Chronic Hypertension (DC), Pneumonia (DC) Follow Up With: Kerry Farris MD [Primary Care Provider] - Additional Instructions: Continue to take levaquin 750mg daily for five days. Follow up with your PCP in 3-5 days. Increase activity as you feel up to it. Return to the emergency department if symptoms return or if you develop any fevers, chills, or altered mental status. Return for evaluation if new concerns arise. - Diet and Activity Activity: resume usual activities as tolerated Diet: low salt diet - VTE Documentation of Mechanical Device: Intermittent pneumatic compression device <Mateo Mueller - Last Filed: 12/22/17 20:19> Date of Encounter: 12/22/17 - Discharge Diagnosis (1) Acute metabolic encephalopathy Priority: Secondary Status: Resolved (2) Thrombocytopenia Status: Resolved (3) Supratherapeutic INR Status: Resolved (4) Encephalopathy Status: Resolved (5) PNA (pneumonia) Priority: Primary Status: Suspected Qualifiers: Pneumonia type: due to Pneumococcus Laterality: right Lung location: lower lobe of lung Qualified Code(s): J13 - Pneumonia due to Streptococcus pneumoniae (6) Seizure disorder Status: Chronic (7) UTI (urinary tract infection) Status: Acute Qualifiers: Urinary tract infection type: acute cystitis Hematuria presence: with hematuria Qualified Code(s): N30.01 - Acute cystitis with hematuria (8) Sepsis Status: Acute Qualifiers: Sepsis type: sepsis due to unspecified organism Qualified Code(s): A41.9 - Sepsis, unspecified organism (9) Physical deconditioning Status: Acute (10) Left ureteral calculus Priority: Secondary Status: Acute (11) Hydronephrosis Priority: Secondary Status: Acute Qualifiers: Hydronephrosis type: with ureteral calculous obstruction Qualified Code(s) : N13.2 - Hydronephrosis with renal and ureteral calculous obstruction (12) Antiphospholipid syndrome Status: Chronic (13) Severe sepsis Priority: Primary Status: Resolved (14) HTN (hypertension) Priority: Secondary Status: Chronic Qualifiers: Hypertension type: essential hypertension Qualified Code(s): I10 - Essential (primary) hypertension Hospital course: Ms. Jackson is a 57 year old female Discharge discussed with: patient, family - Time Spent with Patient Total time spent providing and/or coordinating discharge services: 38min Date of admission: 12/16/17 11:40 Primary care physician: Kerry Farris MD Consults: 12/16/17 11:58 Consult to C[employer]eder [CONS] Routine Reason for SW Consult: demntia, seems to be getting worse. 12/17/17 15:42 Consult to Interpret Exam [CONS] Routine Consulting Provider: Nacho Hidalgo I Consult to Interpret Exam: Interpret EEG 12/18/17 09:09 Consult to Oncology Hematology [CONS] Routine Consulting Provider: Anitha Fisher Reason for Consult: Antiphospholipid syndrome Time Notified: 09:11 Call Completed: Yes 12/18/17 09:14 Consult to Infectious Diseases [CONS] Routine Consulting Provider: Infectious Disease [place] Reason for Consult: concern for infectious encephalopathy Time Notified: 09:15 Call Completed: Yes 12/19/17 14:06 Consult to Physical Therapy [CONS] Routine Comment: Evaluate, develop and implement POC Reason for Consult: deconditioning Does patient have active BEDREST order?: No Is patient medically & hemodynamically stable?: Yes Patient assessed for mobility or mobilized this visit?: Yes 12/21/17 15:45 Consult to Nutrition [CONS] Routine Comment: Consulting Provider: NUTRITION Reason for Dietary Consult: Diet Education - Constitutional Vitals: Temp Pulse Resp BP Pulse Ox 98.2 F 72 17 135/72 96 12/22/17 16:31 12/22/17 16:31 12/22/17 16:31 12/22/17 16:31 12/22/17 16:31 - Attending Attestation I examined this patient and my medical decision-making was reviewed with the Resident Physician on 12/22/17. I agree with the documented findings, disposition and treatment plan as described except to the extent set forth below. Ms Jackson has been admitted for sepsis related to obstructive uropathy and UTI. She was found to have pneumonia as well. She was treated with IV abx and stent placed. She has returned to baseline. Exam alert Comfortable Mucus membranes dry Heart reg No wheeze Plan D/C home today with HHC and completion of abx PO.
--- NOTE | 2017-12-22 10:25 | Infectious Disease Progress No ---
Date of Encounter: 12/22/17 Time of Encounter: 10:24 - Assessment and Plan (1) Severe sepsis Status: Resolved Met SIRS criteria with >10% bandemia, tachycardia, fever with TMAX of 101.1, end organ damage with Cr 1.99 on admission and AMS - Will switch patient to oral levaquin 750 mg X5 days for a 10 day total course of ABX - Blood culture 12/16 negative x2 - Patient is being diacharged on 5d of levaquin (2) PNA (pneumonia) Status: Suspected - Secondary to unknown organism - Chest x-ray demonstrates possible pneumonia versus atelectasis - Repeat CXR 12/19: Interval development of left basilar consolidation and pleural effusion which may be related to PNA - Resp infection panel negative - Legionella, strep antigen both negative - CXR 12/21: Stable patchy lower lobe basilar opacities - Discharge on 5d of levaquin Qualifiers: Pneumonia type: due to Pneumococcus Laterality: right Lung location: lower lobe of lung Qualified Code(s): J13 - Pneumonia due to Streptococcus pneumoniae (3) Encephalopathy Status: Resolved Secondary to infectious process vs metabolic - Patient was initially aphasic; this has since resolved - Both head CT and MRI showed no acute process - EEG was obtained, showed no clear paroxysmal activities or epileptiform discharges; showed prominent delta activity in the anterior/posterior regions, consistent with encephalopathy - Resolved (4) Nephrolithiasis Status: Acute Abdomen and pelvis CT demonstrated: - Left hydronephrosis secondary to a 5 mm distal ureter calculus - Bilateral urolithiasis - Noncalcified left lower lobe pulmonary nodule measuring 2 mm - Urology was consulted, patient underwent left-sided ureter stone extraction, left retrograde pyelogram, stent placement on 12/16 - Urology following (5) Seizure disorder Status: Chronic - Continue home meds - Management per primary team (6) HTN (hypertension) Status: Chronic - Management per primary team Qualifiers: Hypertension type: essential hypertension Qualified Code(s): I10 - Essential (primary) hypertension (7) Coumadin toxicity Status: Acute - Elevated PT - Coumadin has been resumed after FFP and Vitamin K Qualifiers: Encounter type: initial encounter Injury intent: accidental or unintentional Qualified Code(s): T45.511A - Poisoning by anticoagulants, accidental (unintentional), initial encounter - Subjective Interval history: Patient was seen and examined at bedside this morning. Reports that she is feeling much better today than she did last week. Denies lethargy, confusion, headache. No complaints at this time. Infect Dis PN-Objective Data - Labs CBC & Chem 7: 12/22/17 05:37 12/22/17 05:37 Labs: Laboratory Results - last 24 hr 12/16/17 12/21/17 12/22/17 19:57 13:49 05:37 WBC 5.7 RBC 3.14 L Hgb 9.9 L Hct 30.2 L MCV 96.2 MCH 31.5 MCHC 32.8 RDW 14.5 Plt Count 138 L MPV 10.2 Seg Neutrophils % 54.0 Lymphocytes % 26.0 Monocytes % 6.0 Eosinophils % 12.0 Myelocytes % 2.0 H Neutrophils # 3.1 Lymphocytes # 1.5 Monocytes # 0.3 Eosinophils # 0.7 H Toxic Granulation Present A Platelet Estimate Slight Decrease L Hypochromasia Present A Macrocytosis Present A PT INR Sodium Potassium Chloride Carbon Dioxide BUN Creatinine Est GFR ( Amer) Est GFR (Non-Af Amer) BUN/Creatinine Ratio Glucose Calculated Osmolality Calcium Number of Stones 1 Stone Size 1 TO 4 Stone Mass 19 Stone Description SEE NOTE Stone Composition SEE NOTE Vancomycin Trough 20 H 12/22/17 12/22/17 05:37 05:37 WBC RBC Hgb Hct MCV MCH MCHC RDW Plt Count MPV Seg Neutrophils % Lymphocytes % Monocytes % Eosinophils % Myelocytes % Neutrophils # Lymphocytes # Monocytes # Eosinophils # Toxic Granulation Platelet Estimate Hypochromasia Macrocytosis PT 29.7 H INR 2.6 Sodium 139 Potassium 3.4 L Chloride 114 H Carbon Dioxide 20 L BUN 7 Creatinine 0.87 Est GFR ( Amer) > 60 Est GFR (Non-Af Amer) > 60 BUN/Creatinine Ratio 8 Glucose 80 Calculated Osmolality 285 Calcium 9.4 Number of Stones Stone Size Stone Mass Stone Description Stone Composition Vancomycin Trough Cultures: Cultures 12/17/17 12:45 Urine Culture - Final Urine,Catheterized No growth. 12/17/17 21:15 Urine Culture - Final Urine,Catheterized No growth. 12/18/17 19:55 Legionella Antigen - Final Urine,Clean Catch Streptococcus pneumoniae Antigen (M - Final Serology 12/18/17 12/17/17 12/16/17 Range/Units 19:55 21:15 19:57 Ur Specimen Adequacy [employer] Urine Color Reina A (Yellow) Urine Clarity Cloudy A (Clear) Urine pH 7.0 (5.0-8.0) pH Units Ur Specific Stanton 1.020 (1.010-1.025) Urine Protein 30 H (Neg-Trace) mg/dL Urine Glucose (UA) Normal (Normal) mg/dL Urine Ketones Trace H (Negative) mg/dL Urine Blood Moderate H (Negative) Urine Nitrite Negative (Negative) Urine Bilirubin Negative (Negative) Urine Urobilinogen 4.0 H (Normal) mg/dL Ur Leukocyte Esterase Large H (Negative) Ur Culture Indicated? YES A (NO) Number of Stones 1 Stone Size 1 TO 4 mm Stone Mass 19 mg Stone Description SEE NOTE Stone Composition SEE NOTE Chlamy pneumoniae PCR Not Detected (Not Detect) Adenovirus (PCR) Not Detected (Not Detect) B. pertussis DNA (PCR) Not Detected (Not Detect) B.parapertussis DNA PCR Not Detected (Not Detect) Coronavirus OC43 (PCR) Not Detected (Not Detect) Coronavirus HKU1 (PCR) Not Detected (Not Detect) Coronavirus 229E (PCR) Not Detected (Not Detect) Coronavirus NL63 (PCR) Not Detected (Not Detect) Human Metapneumovir PCR Not Detected (Not Detect) Influenza A (H1) PCR Not Detected (Not Detect) Influ A (H1N1/09) PCR Not Detected (Not Detect) Influenza A (H3) PCR Not Detected (Not Detect) Influenza A Untype (PCR) Not Detected (Not Detect) Influenza Type B (PCR) Not Detected (Not Detect) M.pneumoniae DNA (PCR) Not Detected (Not Detect) Parainfluenza 1 (PCR) Not Detected (Not Detect) Parainfluenza 2 (PCR) Not Detected (Not Detect) Parainfluenza 3 (PCR) Not Detected (Not Detect) Parainfluenza 4 (PCR) Not Detected (Not Detect) RSV (PCR) Not Detected (Not Detect) Entero/Rhino (PCR) Not Detected (Not Detect) - Impressions Impressions Chest X-Ray 12/21/17 16:50 IMPRESSION: Stable patchy lower lobe basilar opacities. D/ / 12/22/2017 05:23:37 Rodger Rush MD / john paul Interpreting Provider: Rodger Rush MD Exam - Constitutional Vitals: Temp Pulse Resp BP Pulse Ox 98 F 71 20 143/65 95 12/22/17 07:14 12/22/17 07:14 12/22/17 07:14 12/22/17 07:14 12/22/17 07:14 - Additional findings Additional findings: - Head Head exam: Present: atraumatic - ENT ENT exam: Present: mucous membranes moist - Respiratory Respiratory exam: Present: decreased breath sounds, CTAB. Absent: respiratory distress - Cardiovascular Cardiovascular exam: Present: RRR, +S1, +S2 - GI/Abdominal GI/Abdominal exam: Present: normal bowel sounds, soft. Absent: guarding, rebound, tenderness - Extremities Exam Extremities exam: Present: normal inspection. Absent: calf tenderness - Neurological Exam Neurological exam: Present: alert, oriented X3, no focal deficits, strengths equal and symetr throughout - Psychiatric Psychiatric exam: Present: normal affect, normal mood - VTE Documentation of Mechanical Device: Intermittent pneumatic compression device Consult Discharge Plan - Plan Instructions: Levofloxacin (By mouth), Urinary Tract Infection in Women (DC), Renal Failure Diet (DC), Renal Failure Diet (GEN), Sepsis (DC), Chronic Hypertension (DC), Pneumonia (DC) Additional Instructions: Continue to take levaquin 750mg daily for five days. Follow up with your PCP in 3-5 days. Increase activity as you feel up to it. Return to the emergency department if symptoms return or if you develop any fevers, chills, or altered mental status. Return for evaluation if new concerns arise. Referrals: Kerry Farris MD [Primary Care Provider] - Prescriptions: levoFLOXacin [Levaquin] 750 mg PO DAILY #5 tablet - Attending Attestation I examined this patient and my medical decision-making was reviewed with the Resident Physician. I agree with the documented findings, disposition and treatment plan as described except to the extent set forth below.
[2017-12-22 16:32] VITALS: BP 135/72
--- NOTE | 2017-12-22 18:39 | Physician Discharge Referral ---
Home Health/Hosp Referral Info Transfer to: Home Health Provider in Charge Post Discharge: PCP - Diagnosis (1) Sepsis Priority: Primary Status: Acute (2) UTI (urinary tract infection) Priority: Secondary Status: Acute (3) PNA (pneumonia) Status: Acute (4) Encephalopathy Priority: Secondary Status: Acute (5) Supratherapeutic INR Priority: Secondary Status: Acute (6) Thrombocytopenia Priority: Secondary Status: Acute (7) Seizure disorder Priority: Secondary Status: Chronic (8) Physical deconditioning Priority: Secondary Status: Acute - Respiratory Orders Smoking Cessation: Smoking cessation has been advised. For more information, call the [place] Tobacco Quit Line at 3-314-LYFRNOW. - Services Needed Following services are medically necessary services: Nursing, Home Health Aide, Physical Therapy, Occupational Therapy - Transfer Medications Prescriptions: levoFLOXacin [Levaquin] 750 mg PO DAILY #5 tablet Home Medications: Atorvastatin Calcium [Lipitor] 20 mg PO HS 12/16/17 [History] BuPROPion SR (12 HR) [Wellbutrin SR] 150 mg PO 1200 12/16/17 [History] BuPROPion SR (12 HR) [Wellbutrin SR] 300 mg PO QAM 12/16/17 [History] Calcium Carbonate [Calcium] 500 mg PO DAILY 12/16/17 [History] FLUoxetine HCl [Fluoxetine HCl] 40 mg PO DAILY 12/16/17 [History] Levothyroxine [Synthroid] 100 mcg PO 0630 12/16/17 [History] Ondansetron ODT [Zofran ODT] 4 mg PO DAILY PRN 12/16/17 [History] Potassium Chloride 20 meq PO BID 12/16/17 [History] Quetiapine Fumarate [Seroquel] 50 mg PO HS 12/16/17 [History] Spironolactone [Aldactone] 50 mg PO BID 12/16/17 [History] Topiramate [Topamax] 50 mg PO BID 12/16/17 [History] Trazodone HCl 300 mg PO HS 12/16/17 [History] Warfarin Sodium 2.5 mg PO DAILY 12/16/17 [History] raNITIdine HCl [Ranitidine HCl] 300 mg PO DAILY 12/16/17 [History] levoFLOXacin [Levaquin] 750 mg PO DAILY #5 tablet 12/22/17 [Rx] Allergies/Adverse Reactions: 3 Allergy/AdvReac Type Severity Reaction Status Date / Time divalproex sodium AdvReac See Verified 12/16/17 07:46 [From Depakote] Comments phenytoin [From Dilantin] AdvReac Hives Verified 12/16/17 07:46 Certification: Further, I certify that my clinical findings support that this patient is homebound (i.e. absences from home require considerable and taxing effort and are for medical reasons or scientologist services or infrequently or short duration when for other reasons) because: Homebound Reason: Patient requires assistance of a person or device to safely leave home Attestation: My signature below is to certify that this patient is under my care and that I, or nurse practitioner, or a physician's assistant professor of theater working with me, has a face-to -face encounter with this patient.
== END 2017-12-22 18:36 | disposition home or self-care (01) | DRG 853 ==
LOC: EMEROO 05:07 → 3BNU 05:07 → SUATTDRO 11:40 → 2NENU 12-17 16:01
PROVIDERS: ADMIT Internal Medicine; ATTEND Internal Medicine

== ENCOUNTER 2019-01-31 14:05 | Inpatient (IN) ==
--- NOTE | 2019-01-31 15:16 | Emergency Department Note ---
Disposition Clinical Impression: Elevated liver enzymes Compression fracture of L1 lumbar vertebra Qualifiers: Encounter type: initial encounter Qualified Code(s): S32.010A - Wedge compression fracture of first lumbar vertebra, initial encounter for closed fracture Disposition: Admitted As Inpatient Condition: Fair Referrals: Kerry Farris MD [Primary Care Provider] - Time of Disposition: 18:14 Back Pain HPI - General Chief Complaint: ED Back Pain/Injury Stated Complaint: fall/back pain Time Seen by Provider: 01/31/19 14:30 Source: patient, family Mode of arrival: private vehicle Limitations: no limitations Nursing Notes Reviewed: Yes Vital Signs Reviewed: Yes - History of Present Illness Pt Subjective Complaint: back pain, back injury Onset (ago): Just 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 Duration: constant Similar Symptoms Previously: No Location: lumbar spine, thoracic spine Pain Severity: severe Quality: sharp, aching Radiation: none Improves with: immobilization Worsens with: movement Context: fall (slipped on concrete steps) Associated symptoms: Denies: numbness, weakness, incontinence of bowel/bladder, abdominal pain, hematuria Treatments prior to arrival: other (none) - Related Data Home Medications Medication Instructions Recorded Confirmed Atorvastatin Calcium [Lipitor] 20 mg PO HS 12/16/17 07/09/18 BuPROPion SR (12 HR) [Wellbutrin 150 mg PO 1200 12/16/17 07/09/18 SR] BuPROPion SR (12 HR) [Wellbutrin 300 mg PO QAM 12/16/17 07/09/18 SR] Levothyroxine [Synthroid] 100 mcg PO 0630 12/16/17 07/09/18 Potassium Chloride 20 meq PO BID 12/16/17 07/09/18 Quetiapine Fumarate [Seroquel] 50 mg PO HS 12/16/17 07/09/18 Spironolactone [Aldactone] 50 mg PO BID 12/16/17 07/09/18 Topiramate [Topamax] 50 mg PO BID 12/16/17 07/09/18 Trazodone HCl 300 mg PO HS 12/16/17 07/09/18 raNITIdine HCl [Ranitidine HCl] 300 mg PO DAILY 12/16/17 07/09/18 Cholecalciferol (D-3) [Vitamin D] 1,000 units DAILY 07/09/18 07/09/18 Lovenox DAILY 07/09/18 Quetiapine Fumarate [Seroquel] 100 mg PO DAILY 07/09/18 07/09/18 Allergies Allergy/AdvReac Type Severity Reaction Status Date / Time divalproex sodium AdvReac See Verified 01/31/19 14:07 [From Depakote] Comments phenytoin [From Dilantin] AdvReac Hives Verified 01/31/19 14:07 All systems ED: reviewed and negative except as stated. Review of Systems: As Per HPI Constitutional: Denies: fever, chills, weakness Eyes: Denies: vision change Cardiovascular: Denies: chest pain, palpitations, syncope Respiratory: Denies: dyspnea Gastrointestinal: Denies: abdominal pain, nausea, vomiting, diarrhea Genitourinary: Denies: hematuria Musculoskeletal: Reports: as per HPI, back pain. Denies: neck pain Integumentary: Denies: abrasion Neurological: Denies: headache, weakness, numbness, paresthesias, confusion, vertigo Hematological/Lymphatic: Reports: easy bleeding, easy bruising Past Medical History - Past Medical History Medical history: Reports: CVA, dementia, hyperlipidemia, hypertension, renal disease, seizures, thyroid disease, TIA Surgical history: Reports: , other Psychiatric history: Reports: anxiety, depression - Social History Smoking Status: Never smoker Smokeless Tobacco Status: No Alcohol use: Reports: none Drug use: Reports: none Physical Exam - General Limitations: no limitations General appearance: alert, in no apparent distress - Head Head exam: atraumatic, normocephalic, normal inspection - Eye Eye exam: Present: normal appearance, PERRL. Absent: scleral icterus, conjunctival injection, periorbital swelling - ENT ENT exam: normal oropharynx, mucous membranes moist - Neck Neck exam: Present: normal inspection, full ROM, trachea midline. Absent: tenderness - Expanded Neck Exam Neck exam focused ED: Absent: midline tenderness, paraspinal tenderness, tenderness (other), anterior neck swelling - Chest Chest inspection: Present: normal inspection. Absent: tenderness - Respiratory Respiratory exam: Present: normal lung sounds bilaterally. Absent: respiratory distress - Cardiovascular Cardiovascular exam: Present: regular rate, normal rhythm - Abdominal Exam Abdominal exam: Present: soft, Non-Tender. Absent: distention, guarding, rebound, rigidity, mass - Extremities Exam Extremities exam: Present: normal inspection, normal capillary refill. Absent: tenderness - Back Exam Back exam: Present: tenderness, muscle spasm, paraspinal tenderness, vertebral tenderness (lumbar and lower T). Absent: full ROM, CVA tenderness (R), CVA tenderness (L), sciatic notch tenderness (R), sciatic notch tenderness (L) - Neurological Exam Neurological exam: Present: alert, oriented X3, CN II-XII intact, reflexes nor mal. Absent: motor sensory deficit - Psychiatric Psychiatric exam: Present: normal affect, normal mood - Skin Skin exam: Present: warm, dry, intact, normal color Course Course Narrative: Patient slipped and fell on concrete steps while leaving the old entrance to the [facility]. She landed on her back on the edge of a step. She denies head injury, paraesthesias or weakness. Pain meds and xrays ordered initially. Case discussed with Dr. Love. He has had face to face time with the patient and recommends a trauma scan of the abdomen and pelvis with spine recon's as well as head and C-spine CT. Given her history of CK the he also recommends waiting for her labs before ordering the scan. Patient's GFR is 37. CT was ordered without contrast. CT abdomen and pelvis was read by the radiologist as L1 compression fracture with 50% loss of height and bilateral nonobstructing nephrolithiasis. Normal liver. CT head and cervical spine read by the radiologist as no acute abnormality. Patient is unable to stand without assistance and is unable to walk due to extreme pain. Dr. Ness has been paged - Reevaluation(s) Reevaluation #1: re-check of patient - pain still 03/17. Patient just received pain meds. Time: 16:18 - Consultations Consultation #1: Dr Pinto: New compression fx of L1; approximately 40% Time: 17:38 Consultation #2: Is discussed with Dr. Ness. He recommends admission to the hospitalist. He will see the patient in the morning and will most likely do kyphoplasty this we ek. Time: 18:00 Vital Signs Temperature 98.1 F 01/31/19 14:08 Pulse Rate 77 01/31/19 14:08 Respiratory Rate 15 01/31/19 14:08 Blood Pressure 129/70 01/31/19 14:08 O2 Sat by Pulse Oximetry 97 01/31/19 14:08 Temperature 98.1 F 01/31/19 14:08 Pulse Rate 77 01/31/19 14:08 Respiratory Rate 15 01/31/19 14:08 Blood Pressure 129/70 01/31/19 14:08 O2 Sat by Pulse Oximetry 97 01/31/19 14:08 Oxygen Delivery Oxygen Delivery Room Air Back Pain/Injury - Medical Records Medical records reviewed: Yes I reviewed the patient's medical records. - Lab Data Lab results reviewed: Yes I reviewed the patient's lab results. Lab results narrative: Laboratory Last Values Hgb 15.5 g/dL (11.5-15.4) H 01/31/19 15:41 Hct 46.1 % (35.3-44.9) H 01/31/19 15:41 PT 27.2 Seconds (9.4-12.1) H 01/31/19 15:41 INR 2.4 01/31/19 15:41 Sodium 136 mEq/L (136-145) 01/31/19 15:41 Potassium 4.3 mEq/L (3.5-5.1) 01/31/19 15:41 Chloride 103 mEq/L (98-107) 01/31/19 15:41 Carbon Dioxide 27 mEq/L (23-29) 01/31/19 15:41 BUN 14 mg/dL (6-20) 01/31/19 15:41 Creatinine 1.47 mg/dL (0.60-1.20) H 01/31/19 15:41 Est GFR ( Amer) 44 (> 60) L 01/31/19 15:41 Est GFR (Non-Af Amer) 37 (> 60) L 01/31/19 15:41 BUN/Creatinine Ratio 10 (6-26) 01/31/19 15:41 Glucose 99 mg/dL (70-105) 01/31/19 15:41 Calculated Osmolality 283 (280-300) 01/31/19 15:41 Calcium 10.9 mg/dL (8.6-10.3) H 01/31/19 15:41 Total Bilirubin 0.4 mg/dL (0.3-1.0) 01/31/19 15:41 AST 40 Units/L (13-39) H 01/31/19 15:41 ALT 58 Units/L (7-52) H 01/31/19 15:41 Alkaline Phosphatase 112 Units/L (34-104) H 01/31/19 15:41 Serum Total Protein 6.9 g/dL (6.4-8.9) 01/31/19 15:41 Albumin 4.4 g/dL (3.5-5.7) 01/31/19 15:41 Globulin 2.5 g/dL (2.4-3.5) 01/31/19 15:41 Albumin/Globulin Ratio 1.8 (1.1-2.2) 01/31/19 15:41 - Radiology Data Radiology results reviewed: Yes I reviewed the patient's radiology results. Abdomen/Pelvis CT 01/31/19 16:16 IMPRESSION: L1 compression fracture Bilateral nephrolithiasis. D/ / Amaury Crenshaw MD / Amaury Crenshaw MD Interpreting Provider: Amaury Crenshaw MD Cervical Spine CT 01/31/19 16:17 IMPRESSION: No acute abnormality of the cervical spine. D/ / Hawk Tran MD / Hawk Tran MD Interpreting Provider: Hawk Tran MD Head CT 01/31/19 16:17 IMPRESSION: No acute intracranial abnormality. D/ / Amaury Crenshaw MD / Amaury Crenshaw MD Interpreting Provider: Amaury Crenshaw MD Lumbar Spine CT 01/31/19 16:17 IMPRESSION: 1. Acute compression deformity of the L1 vertebral body. No retropulsion of fracture fragments. No canal narrowing. 2. No other acute abnormality identified 3. Findings were discussed with Shannon Arreola PAC at 5:39 pm on 01/31/2019. D/ / Hawk Tran MD / Hawk Tran MD Interpreting Provider: Hawk Tran MD Thoracic Spine CT 01/31/19 16:17 IMPRESSION: L1 compression fracture. No convincing evidence of acute fracture traumatic malalignment involving the thoracic spine. Overall moderate degenerative changes. D/ / Ismael Giron / Ismael Giron Interpreting Provider: Ismael Giron S.B.AMarshall. - S.B.A.REmely Transition of Care: Chris Grace CNP Situation: Demographics, MOA Background: Presenting Complaint, Relevant PMH, Meds, & Allergies Assessment: Vital Signs, Course and respsone to treatment, Exam Concerns, Patient/Family Expectation, Pertinant Lab Results Recommendation: Barrier(s) to disposition, Recommendation based on pending studies, treatments, or consults S.B.A.R. Report Given to: Chris Grace CNP S.B.A.REmely Repor Time: 18:41
[2019-01-31] MEDS ORDERED: *HR* HYDROcodone/Acet 5/325 mg TABLET PO ONE (15:21)
[2019-01-31] MEDS ORDERED: Ondansetron ODT 4 MG TAB.RAPDIS SL ONE (15:21)
[2019-01-31 15:58] LABS: Hematocrit 46.1 % (35.3-44.9); Hemoglobin 15.5 g/dL (11.5-15.4)
[2019-01-31 16:03] LABS: INR 2.4; Prothrombin Time 27.2 Seconds (9.4-12.1)
[2019-01-31 16:12] LABS: Albumin 4.4 g/dL (3.5-5.7); Albumin/Globulin Ratio 1.8 (1.1-2.2); Bilirubin,Total 0.4 mg/dL (0.3-1.0); Calcium 10.9 mg/dL (8.6-10.3); Globulin 2.5 g/dL (2.4-3.5); Potassium 4.3 mEq/L (3.5-5.1); Total Protein 6.9 g/dL (6.4-8.9)
--- NOTE | 2019-01-31 17:30 | Emergency Department Note ---
Disposition Clinical Impression: Elevated liver enzymes Compression fracture of L1 lumbar vertebra Qualifiers: Encounter type: initial encounter Qualified Code(s): S32.010A - Wedge compression fracture of first lumbar vertebra, initial encounter for closed fracture Disposition: Admitted As Inpatient Time of Disposition: 18:14 General Adult HPI - General Chief complaint: ED Back Pain/Injury Stated complaint: fall/back pain Time Seen by Provider: 01/31/19 14:30 Source: patient, family Mode of arrival: private vehicle Limitations: no limitations - History of Present Illness Pain Scale: 9 - Related Data Home Medications Medication Instructions Recorded Confirmed Atorvastatin Calcium [Lipitor] 20 mg PO DAILY 12/16/17 01/31/19 BuPROPion SR (12 HR) [Wellbutrin 150 mg PO QPM 12/16/17 01/31/19 SR] BuPROPion SR (12 HR) [Wellbutrin 300 mg PO QAM 12/16/17 01/31/19 SR] Levothyroxine [Synthroid] 100 mcg PO 0630 12/16/17 01/31/19 Quetiapine Fumarate [Seroquel] 100 mg PO HS 12/16/17 01/31/19 Spironolactone [Aldactone] 50 mg PO BID 12/16/17 01/31/19 Topiramate [Topamax] 25 mg PO BID 12/16/17 01/31/19 raNITIdine HCl [Ranitidine HCl] 300 mg PO HS 12/16/17 01/31/19 Aspirin [Lo-Dose Aspirin EC] 81 mg PO DAILY 01/31/19 01/31/19 Cholecalciferol (D-3) [Vitamin D] 1,000 unit PO DAILY 01/31/19 01/31/19 FLUoxetine HCl [Fluoxetine HCl] 40 mg PO DAILY 01/31/19 01/31/19 Potassium Citrate [Urocit-K] 10 meq PO QAM 01/31/19 01/31/19 Potassium Citrate [Urocit-K] 20 meq PO QPM 01/31/19 01/31/19 Trazodone HCl 300 mg PO HS 01/31/19 01/31/19 Warfarin Sodium 2.5 mg PO MOFR 01/31/19 01/31/19 Warfarin Sodium 5 mg PO SUTUWETHSA 01/31/19 01/31/19 Allergies Allergy/AdvReac Type Severity Reaction Status Date / Time divalproex sodium AdvReac See Verified 01/31/19 14:07 [From Depakote] Comments phenytoin [From Dilantin] AdvReac Hives Verified 01/31/19 14:07 Constitutional: Denies: fever, chills, weakness Past Medical History - Past Medical History Medical history: Reports: CVA, dementia, hyperlipidemia, hypertension, renal disease, seizures, thyroid disease, TIA Surgical history: Reports: , other Psychiatric history: Reports: anxiety, depression - Social History Smoking Status: Never smoker Smokeless Tobacco Status: No Alcohol use: Reports: none Drug use: Reports: none Physical Exam - General Limitations: no limitations General appearance: alert, in no apparent distress Course Vital Signs Temperature 98.1 F 01/31/19 14:08 Pulse Rate 77 01/31/19 14:08 Respiratory Rate 15 01/31/19 14:08 Blood Pressure 129/70 01/31/19 14:08 O2 Sat by Pulse Oximetry 97 01/31/19 14:08 Temperature 99.2 F 02/01/19 07:22 Pulse Rate 76 02/01/19 07:22 Respiratory Rate 16 02/01/19 07:22 Blood Pressure 104/70 02/01/19 07:22 O2 Sat by Pulse Oximetry 93 02/01/19 03:15 Oxygen Delivery Oxygen Delivery Room Air Medical Decision Making - Lab Data Result diagrams: 02/01/19 01:15 02/01/19 01:15 Lab Results 01/31/19 01/31/19 01/31/19 Range/Units 15:41 15:41 15:41 Hgb 15.5 H (11.5-15.4) g/dL Hct 46.1 H (35.3-44.9) % PT 27.2 H (9.4-12.1) Seconds INR 2.4 Sodium 136 (136-145) mEq/L Potassium 4.3 (3.5-5.1) mEq/L Chloride 103 (98-107) mEq/L Carbon Dioxide 27 (23-29) mEq/L BUN 14 (6-20) mg/dL Creatinine 1.47 H (0.60-1.20) mg/dL Est GFR ( Amer) 44 L (> 60) Est GFR (Non-Af Amer) 37 L (> 60) BUN/Creatinine Ratio 10 (6-26) Glucose 99 (70-105) mg/dL Calculated Osmolality 283 (280-300) Calcium 10.9 H (8.6-10.3) mg/dL Total Bilirubin 0.4 (0.3-1.0) mg/dL AST 40 H (13-39) Units/L ALT 58 H (7-52) Units/L Alkaline Phosphatase 112 H (34-104) Units/L Serum Total Protein 6.9 (6.4-8.9) g/dL Albumin 4.4 (3.5-5.7) g/dL Globulin 2.5 (2.4-3.5) g/dL Albumin/Globulin Ratio 1.8 (1.1-2.2) Attestation Statement - Attestation Attestation: I examined this patient and my medical decision-making was reviewed with the advanced practice provider. I agree with the documented findings, disposition and treatment plan as described except to the extent set forth below. 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 Exam the patient is awake alert sitting in a wheelchair she reports discomfort in her mid back on exam Medical decision management the patient will undergo helical imaging to evaluate for possible intercranial injury cervical injury or fracture of the spine from the thoracic and lumbar spine region
[2019-01-31] MEDS ORDERED: *HR* HYDROmorphone (PF) 1 MG/ML SYRINGE IVP ONE (17:57)
--- NOTE | 2019-01-31 18:59 | Emergency Department Note ---
Disposition Clinical Impression: Elevated liver enzymes Compression fracture of L1 lumbar vertebra Qualifiers: Encounter type: initial encounter Qualified Code(s): S32.010A - Wedge compression fracture of first lumbar vertebra, initial encounter for closed fracture Disposition: Admitted As Inpatient Referrals: Kerry Farris MD [Primary Care Provider] - Forms: ED Satisfaction Letter Time of Disposition: 18:59 Back Pain HPI - General Chief Complaint: ED Back Pain/Injury Stated Complaint: fall/back pain Time Seen by Provider: 01/31/19 14:30 Source: patient, family Limitations: no limitations - History of Present Illness Similar Symptoms Previously: No Pain Severity: severe Quality: sharp, aching Radiation: none Improves with: immobilization Worsens with: movement Associated symptoms: Denies: numbness, weakness, incontinence of bowel/bladder, abdominal pain, hematuria Treatments prior to arrival: other (none) - Related Data Home Medications Medication Instructions Recorded Confirmed Atorvastatin Calcium [Lipitor] 20 mg PO HS 12/16/17 07/09/18 BuPROPion SR (12 HR) [Wellbutrin 150 mg PO 1200 12/16/17 07/09/18 SR] BuPROPion SR (12 HR) [Wellbutrin 300 mg PO QAM 12/16/17 07/09/18 SR] Levothyroxine [Synthroid] 100 mcg PO 0630 12/16/17 07/09/18 Potassium Chloride 20 meq PO BID 12/16/17 07/09/18 Quetiapine Fumarate [Seroquel] 50 mg PO HS 12/16/17 07/09/18 Spironolactone [Aldactone] 50 mg PO BID 12/16/17 07/09/18 Topiramate [Topamax] 50 mg PO BID 12/16/17 07/09/18 Trazodone HCl 300 mg PO HS 12/16/17 07/09/18 raNITIdine HCl [Ranitidine HCl] 300 mg PO DAILY 12/16/17 07/09/18 Cholecalciferol (D-3) [Vitamin D] 1,000 units DAILY 07/09/18 07/09/18 Lovenox DAILY 07/09/18 Quetiapine Fumarate [Seroquel] 100 mg PO DAILY 07/09/18 07/09/18 Allergies Allergy/AdvReac Type Severity Reaction Status Date / Time divalproex sodium AdvReac See Verified 01/31/19 14:07 [From Depakote] Comments phenytoin [From Dilantin] AdvReac Hives Verified 01/31/19 14:07 Constitutional: Denies: fever, chills, weakness Eyes: Denies: vision change Cardiovascular: Denies: chest pain, palpitations, syncope Respiratory: Denies: dyspnea Gastrointestinal: Denies: abdominal pain, nausea, vomiting, diarrhea Genitourinary: Denies: hematuria Musculoskeletal: Reports: as per HPI, back pain. Denies: neck pain Integumentary: Denies: abrasion Neurological: Denies: headache, weakness, numbness, paresthesias, confusion, vertigo Hematological/Lymphatic: Reports: easy bleeding, easy bruising Past Medical History - Past Medical History Medical history: Reports: CVA, dementia, hyperlipidemia, hypertension, renal disease, seizures, thyroid disease, TIA Surgical history: Reports: , other Psychiatric history: Reports: anxiety, depression - Social History Smoking Status: Never smoker Smokeless Tobacco Status: No Alcohol use: Reports: none Drug use: Reports: none Physical Exam - General Limitations: no limitations General appearance: alert, in no apparent distress Course Course Narrative: 184: I have assumed care of this patient from ALICIA Ortega due to the mid- level shift change. Please see Shannon's documentation for care performed prior to my arrival. Briefly, this is an alert and oriented nontoxic-appearing 58-year-old female that presented for evaluation of low back pain status post mechanical fall. She was leaving the [facility] when she slipped and fell, striking her back against a step. Head injury, numbness/tingling/weakness of the extremities. Patient ultimately underwent CT imaging of the head, brain, abdomen, pelvis, and lumbar spine. CT lumbar spine showed an acute L1 compression fracture with 50% loss of height. At this time, we are awaiting the hospitalist to return phone call for admission to the hospitalist care with orthopedic consultation. 1854: I spoke with Dr. Neal of the hospitalist service who has accepted this patient for admission to the hospitalist care. She has requested an ultrasound of the liver to further evaluate findings of elevated AST and ALT on laboratory workup. Vital Signs Temperature 98.1 F 01/31/19 14:08 Pulse Rate 77 01/31/19 14:08 Respiratory Rate 15 01/31/19 14:08 Blood Pressure 129/70 01/31/19 14:08 O2 Sat by Pulse Oximetry 97 01/31/19 14:08 Temperature 98.1 F 01/31/19 14:08 Pulse Rate 77 01/31/19 14:08 Respiratory Rate 15 01/31/19 14:08 Blood Pressure 129/70 01/31/19 14:08 O2 Sat by Pulse Oximetry 97 01/31/19 14:08 Oxygen Delivery Oxygen Delivery Room Air Back Pain/Injury - Medical Records Medical records reviewed: Yes I reviewed the patient's medical records. - Lab Data Lab results reviewed: Yes I reviewed the patient's lab results. Lab results narrative: Lab Results 01/31/19 01/31/19 01/31/19 Range/Units 15:41 15:41 15:41 Hgb 15.5 H (11.5-15.4) g/dL Hct 46.1 H (35.3-44.9) % PT 27.2 H (9.4-12.1) Seconds INR 2.4 Sodium 136 (136-145) mEq/L Potassium 4.3 (3.5-5.1) mEq/L Chloride 103 (98-107) mEq/L Carbon Dioxide 27 (23-29) mEq/L BUN 14 (6-20) mg/dL Creatinine 1.47 H (0.60-1.20) mg/dL Est GFR ( Amer) 44 L (> 60) Est GFR (Non-Af Amer) 37 L (> 60) BUN/Creatinine Ratio 10 (6-26) Glucose 99 (70-105) mg/dL Calculated Osmolality 283 (280-300) Calcium 10.9 H (8.6-10.3) mg/dL Total Bilirubin 0.4 (0.3-1.0) mg/dL AST 40 H (13-39) Units/L ALT 58 H (7-52) Units/L Alkaline Phosphatase 112 H (34-104) Units/L Serum Total Protein 6.9 (6.4-8.9) g/dL Albumin 4.4 (3.5-5.7) g/dL Globulin 2.5 (2.4-3.5) g/dL Albumin/Globulin Ratio 1.8 (1.1-2.2) Result diagrams: 01/31/19 15:41 01/31/19 15:41 Lab Results 01/31/19 01/31/19 01/31/19 Range/Units 15:41 15:41 15:41 Hgb 15.5 H (11.5-15.4) g/dL Hct 46.1 H (35.3-44.9) % PT 27.2 H (9.4-12.1) Seconds INR 2.4 Sodium 136 (136-145) mEq/L Potassium 4.3 (3.5-5.1) mEq/L Chloride 103 (98-107) mEq/L Carbon Dioxide 27 (23-29) mEq/L BUN 14 (6-20) mg/dL Creatinine 1.47 H (0.60-1.20) mg/dL Est GFR ( Amer) 44 L (> 60) Est GFR (Non-Af Amer) 37 L (> 60) BUN/Creatinine Ratio 10 (6-26) Glucose 99 (70-105) mg/dL Calculated Osmolality 283 (280-300) Calcium 10.9 H (8.6-10.3) mg/dL Total Bilirubin 0.4 (0.3-1.0) mg/dL AST 40 H (13-39) Units/L ALT 58 H (7-52) Units/L Alkaline Phosphatase 112 H (34-104) Units/L Serum Total Protein 6.9 (6.4-8.9) g/dL Albumin 4.4 (3.5-5.7) g/dL Globulin 2.5 (2.4-3.5) g/dL Albumin/Globulin Ratio 1.8 (1.1-2.2) - Radiology Data Radiology results reviewed: Yes I reviewed the patient's radiology results. Abdomen/Pelvis CT 01/31/19 16:16 IMPRESSION: L1 compression fracture Bilateral nephrolithiasis. D/ / Amaury Crenshaw MD / Amaury Crenshaw MD Interpreting Provider: Amaury Crenshaw MD Cervical Spine CT 01/31/19 16:17 IMPRESSION: No acute abnormality of the cervical spine. D/ / Hawk Tran MD / Hawk Tran MD Interpreting Provider: Hawk Tran MD Head CT 01/31/19 16:17 IMPRESSION: No acute intracranial abnormality. D/ / Amaury Crenshaw MD / Amaury Cernshaw MD Interpreting Provider: Amaury Crenshaw MD Lumbar Spine CT 01/31/19 16:17 IMPRESSION: 1. Acute compression deformity of the L1 vertebral body. No retropulsion of fracture fragments. No canal narrowing. 2. No other acute abnormality identified 3. Findings were discussed with Shannon SALINAS at 5:39 pm on 01/31/2019. D/ / Hawk Tran MD / Hawk Tran MD Interpreting Provider: Hawk Tran MD Thoracic Spine CT 01/31/19 16:17 IMPRESSION: L1 compression fracture. No convincing evidence of acute fracture traumatic malalignment involving the thoracic spine. Overall moderate degenerative changes. D/ / Ismael Giron / Ismael Giron Interpreting Provider: Ismael Giron
[2019-01-31] MEDS ORDERED: Naloxone 0.4 MG/ML INJ IVP PRN (23:35)
[2019-01-31] MEDS ORDERED: Ondansetron 4 MG/2 ML VIAL IVP PRN (23:35)
[2019-01-31] MEDS ORDERED: *HR* LORazepam 2 MG/ML VIAL IVP PRN (23:35)
[2019-01-31] MEDS ORDERED: Acetaminophen 325 MG TABLET PO PRN (23:35)
[2019-02-01] MEDS: 0.9 % Sodium Chloride 1,000 ML IVC SCH ×2 (00:55→17:36)
[2019-02-01] MEDS: *HR* OxyCODONE Immed Rel 5 MG TABLET PO PRN ×2 (00:55→08:54)
[2019-02-01 01:27] LABS: Basophils % 0.2 %; Hematocrit 40.1 % (35.3-44.9); Lymphocytes # 0.7 K/mcL (0.6-4.6); Lymphocytes % 18.1 %; Mean Corpuscular HGB Conc 33.7 g/dL (31.6-35.5); Mean Corpuscular Hemoglobin 32.1 pg (28.0-33.3); Mean Corpuscular Volume 95.2 fL (83.0-100.0); Mean Platelet Volume 8.8 fL (9.4-12.4); Monocytes # 0.6 K/mcL (0.0-1.3); Monocytes % 14.1 %; Neutrophils # 2.7 K/mcL (1.6-8.9); Platelet Count 107 K/mcL (140-400); Red Blood Count 4.21 M/mcL (3.82-4.97); Red Cell Distribution Width 12.7 % (11.5-14.5); Segmented Neutrophils % 66.6 %
[2019-02-01 01:28] LABS: Hemoglobin 13.5 g/dL (11.5-15.4)
[2019-02-01 01:34] LABS: INR 2.6
[2019-02-01 01:37] LABS: Activated Partial Thrombo Time 45.1 Seconds (26.0-36.0)
[2019-02-01 01:48] LABS: Albumin 3.9 g/dL (3.5-5.7); Albumin/Globulin Ratio 1.9 (1.1-2.2); Bilirubin,Total 0.6 mg/dL (0.3-1.0); Calcium 10.1 mg/dL (8.6-10.3); Chol/HDL Ratio 2.2 (0-4.9); Globulin 2.1 g/dL (2.4-3.5); Magnesium 1.9 mg/dL (1.6-2.6); Potassium 4.3 mEq/L (3.5-5.1)
--- NOTE | 2019-02-01 03:06 | Internal Med History&Physical ---
Date of Encounter: 01/31/19 Time of Encounter: 21:05 Internal Medicine - H&P: HPI Chief complaint: fall, back injury Admitted From: Emergency Dept History of present illness: Ms. Jackson is a 58 year old female who presents to the ER tonight after she sustained a mechanical fall and back injury as she was leaving the anticoagulation clinic. She did not lose consciousness and reportedly did not hit her head. She did fall and landed on her back and sustained significant back injury. Workup in the ER revealed patient to have compression fracture of L1. She was therefore admitted to hospitalist service with spine surgery consultation. Upon my assessment of the patient, patient and confirmed the above history. Patient did not lose consciousness, did not hit her head, did not feel lightheaded or dizzy, and did not have any presyncopal or syncopal symptoms. She tripped over the step and landed on her back thus sustaining injury to her spine. Regarding her anticoagulation, she has a history of antiphospholipid antibody syndrome and has had prior DVTs. She denies any chest pain, shortness of breath, palpitations, calf pain, or unilateral extremity edema. She denies any headaches, vision changes, nausea, or vomiting. Past Med Surg Social Fam HX - Past Medical History Attestation: Yes The following information was validated with the patient. Source: patient, old records reviewed, obtained from family Medical history: CVA, dementia, hyperlipidemia, hypertension, kidney stones, renal disease, seizures, thyroid disease, TIA Additional medical history: vascular dementia, antiphospholid syndrome,anxiety,depression,insomnia,chronic kidney disease stage 3 Psychiatric history: anxiety, depression - Past Surgical History Surgical History: , other Additional surgical history: colonoscopy, ablation,lithotripsy/stent placement - Social History Smoking Status: Never smoker Smokeless Tobacco Status: No Alcohol use: none Drug use: none Current living situation: Home, With Family Recent Out of Country Travel Within the Last 8 Weeks: No - Family History Father Living Status: Hx Family Cardiac Disorders: No Hx Family Respiratory Disorders: No Hx Family Cancer: Yes (colon cancer) Hx Family GI Disorders: No Hx Family Endocrine Disorder: No Hx Family Neuromuscular Disorders: No Hx Family Neurologic Disorders: No Hx Family HEENT Disorders: No Hx Family Autoimmune Disorders: No Mother Hx Family Cardiac Disorders: No Hx Family Respiratory Disorders: No Hx Family Cancer: No Hx Family GI Disorders: No Hx Family Endocrine Disorder: No Hx Family Neuromuscular Disorders: No Hx Family Neurologic Disorders: No Hx Family HEENT Disorders: No Hx Family Autoimmune Disorders: No Internal Medicine - H&P: Meds Atorvastatin Calcium [Lipitor] 20 mg PO DAILY 12/16/17 [History] BuPROPion SR (12 HR) [Wellbutrin SR] 150 mg PO QPM 12/16/17 [History] BuPROPion SR (12 HR) [Wellbutrin SR] 300 mg PO QAM 12/16/17 [History] Levothyroxine [Synthroid] 100 mcg PO 0630 12/16/17 [History] Quetiapine Fumarate [Seroquel] 100 mg PO HS 12/16/17 [History] Spironolactone [Aldactone] 50 mg PO BID 12/16/17 [History] Topiramate [Topamax] 25 mg PO BID 12/16/17 [History] raNITIdine HCl [Ranitidine HCl] 300 mg PO HS 12/16/17 [History] Aspirin [Lo-Dose Aspirin EC] 81 mg PO DAILY 01/31/19 [History] Cholecalciferol (D-3) [Vitamin D] 1,000 unit PO DAILY 01/31/19 [History] FLUoxetine HCl [Fluoxetine HCl] 40 mg PO DAILY 01/31/19 [History] Potassium Citrate [Urocit-K] 10 meq PO QAM 01/31/19 [History] Potassium Citrate [Urocit-K] 20 meq PO QPM 01/31/19 [History] Trazodone HCl 300 mg PO HS 01/31/19 [History] Warfarin Sodium 2.5 mg PO MOFR 01/31/19 [History] Warfarin Sodium 5 mg PO SUTUWETHSA 01/31/19 [History] Allergy/AdvReac Type Severity Reaction Status Date / Time divalproex sodium AdvReac See Verified 01/31/19 14:07 [From Depakote] Comments phenytoin [From Dilantin] AdvReac Hives Verified 01/31/19 14:07 - Constitutional Constitutional: no chills, no fever(s), no night sweats - EENT Eyes: no blurry vision, no change in vision Ears: no ear pain, no tinnitus Nose, mouth and throat: no nasal congestion, no sinus pressure, no sore throat - Cardiovascular Cardiovascular ROS IM: no chest pain, no dyspnea, no dyspnea on exertion, no irregular heart rhythm, no lightheadedness, no palpitations, no syncope - Respiratory Respiratory: no cough, no hemoptysis, no chest congestion, no excessive phlegm production - Gastrointestinal Gastrointestinal: no abdominal pain, no diarrhea, no hematemesis, no hematochezia, no melena, no nausea, no vomiting - Genitourinary Genitourinary: no dysuria, no flank pain, no hematuria - Musculoskeletal Musculoskeletal ROS IM: back pain, no arthralgias - Integumentary Integumentary IM: no rash, no jaundice - Neurological Neurological ROS: no confusion, no dizziness, no focal weakness, no frequent falls, no headache(s), no numbness, no weakness - Psychiatric Psychiatric: no anxiety, no depression - Endocrine Endocrine IM: no polydipsia, no polyphagia, no polyuria - Allergic/Immunologic Allergic/Immunologic: no GI upset with certain foods - Constitutional Vitals: Temp Pulse Resp BP Pulse Ox 99.0 F 74 15 110/74 92 01/31/19 22:36 01/31/19 22:36 01/31/19 22:36 01/31/19 22:36 01/31/19 22:36 General appearance: Present: cooperative, A&O X 3, pleasant, no acute distress, answers questions appropriately Exam: mild low back pain; otherwise NAD - Head Head exam: Present: atraumatic, normal inspection - Eye Eye exam: Present: EOMI, PERRL. Absent: scleral icterus Pupils: Present: normal accommodation - ENT ENT exam: Present: mucous membranes dry, normal exam, normal oropharynx - Neck Neck exam general surgery: Present: full ROM, supple, trachea midline. Absent: lymphadenopathy, tenderness, nuchal rigidity, thyromegaly - Respiratory Respiratory exam: Present: CTAB. Absent: chest wall tenderness, rales, rhonchi, wheezes - Cardiovascular Cardiovascular exam: Present: RRR, +S1, +S2. Absent: diastolic murmur, systolic murmur - GI/Abdominal GI/Abdominal exam: Present: normal bowel sounds, soft. Absent: guarding, hepatomegaly, mass, rebound, splenomegaly, tenderness - Extremities Exam Extremities exam: Present: normal capillary refill, warm, radial pulses palpable and symmetrical. Absent: calf tenderness, pedal edema, tenderness - Back Exam Back exam: Present: tenderness (low back). Absent: CVA tenderness (L), CVA tenderness (R) - Neurological Exam Neurological exam: Present: alert, CN II-XII intact, oriented X3, no focal d eficits, strengths equal and symetr throughout. Absent: motor sensory deficit - Psychiatric Psychiatric exam: Present: flat affect - Skin Skin exam: Present: dry, intact, warm Internal Med - H&P Results - Labs CBC & Chem 7: 02/01/19 01:15 02/01/19 01:15 Labs: Short CBC 01/31/19 02/01/19 Range/Units 15:41 01:15 WBC 4.0 L (4.3-11.1) K/mcL Hgb 15.5 H 13.5 D (11.5-15.4) g/dL Hct 46.1 H 40.1 (35.3-44.9) % Plt Count 107 L (140-400) K/mcL Neutrophils # 2.7 (1.6-8.9) K/mcL BMP 01/31/19 02/01/19 15:41 01:15 Sodium 136 135 L Potassium 4.3 4.3 Chloride 103 105 Carbon Dioxide 27 21 L BUN 14 16 Creatinine 1.47 H 1.45 H Glucose 99 132 H Calcium 10.9 H 10.1 Cardiac Enzymes 02/01/19 Range/Units 01:15 Troponin I < 0.03 (< 0.04) ng/mL Liver Function 01/31/19 02/01/19 Range/Units 15:41 01:15 Total Bilirubin 0.4 0.6 (0.3-1.0) mg/dL AST 40 H 29 (13-39) Units/L ALT 58 H 44 (7-52) Units/L Alkaline Phosphatase 112 H 92 (34-104) Units/L Albumin 4.4 3.9 (3.5-5.7) g/dL - Impressions ITS Impressions Abdomen/Pelvis CT 01/31/19 16:16 IMPRESSION: L1 compression fracture Bilateral nephrolithiasis. D/ / Amaury Crenshaw MD / Amaury Crenshaw MD Interpreting Provider: Amaury Crenshaw MD Cervical Spine CT 01/31/19 16:17 IMPRESSION: No acute abnormality of the cervical spine. D/ / Hawk Tran MD / Hawk Tran MD Interpreting Provider: Hawk Tran MD Head CT 01/31/19 16:17 IMPRESSION: No acute intracranial abnormality. D/ / Amaury Crenshaw MD / Amaury Crenshaw MD Interpreting Provider: Amaury Crenshaw MD Lumbar Spine CT 01/31/19 16:17 IMPRESSION: 1. Acute compression deformity of the L1 vertebral body. No retropulsion of fracture fragments. No canal narrowing. 2. No other acute abnormality identified 3. Findings were discussed with Shannon Arreola PAC at 5:39 pm on 01/31/2019. D/ / Hawk Tran MD / Hawk Tran MD Interpreting Provider: Hawk Tran MD Thoracic Spine CT 01/31/19 16:17 IMPRESSION: L1 compression fracture. No convincing evidence of acute fracture traumatic malalignment involving the thoracic spine. Overall moderate degenerative changes. D/ / Ismael Giron / Ismael Giron Interpreting Provider: Ismael Giron Liver Ultrasound 01/31/19 18:56 IMPRESSION: Minimal sludge in the gallbladder. Borderline prominence of the common bile duct. Otherwise, unremarkable right upper quadrant ultrasound. D/ / Tuan Rosenbaum MD / Tuan Rosenbaum MD Interpreting Provider: Tuan Rosenbaum MD - Assessment and Plan (1) Compression fracture of L1 lumbar vertebra Current Visit: Yes Status: Acute Assessment and plan: 1. Pain control and bed rest. 2. Consult Spine surgery for possible kyphoplasty. 3. Hold Coumdain for possible surgery/intervention. Qualifiers: Encounter type: initial encounter Qualified Code(s): S32.010A - Wedge compression fracture of first lumbar vertebra, initial encounter for closed fracture (2) CKD (chronic kidney disease) stage 3, GFR 30-59 ml/min Current Visit: Yes Status: Chronic Assessment and plan: 1. Monitor renal function and I/O. 2. Consult nephrology if renal function changes. 3. Currently at baseline renal function. 4. Avoid nephrotoxins. (3) Antiphospholipid antibody syndrome Current Visit: Yes Status: Chronic Assessment and plan: 1. Hold Coumadin for possible surgical intervention. 2. Monitor INR daily; start Heparin drip when INR drops to < 1.5. (4) Elevated liver enzymes Current Visit: Yes Status: Acute Assessment and plan: 1. Liver ultrasound unremarkable. 2. Hold STATIN and monitor LFT's. 3. May need to change some of her home meds (?Topamax). (5) DVT prophylaxis Current Visit: Yes Status: Acute Assessment and plan: 1. As above regarding Coumadin and Heparin drip.
[2019-02-01] MEDS: Topiramate 25 MG TABLET PO SCH ×2 (08:54→20:46)
[2019-02-01] MEDS: BuPROPion SR (12 HR) 150 MG TABLET PO SCH ×2 (08:54→17:37)
[2019-02-01] MEDS: Potassium Citrate 10 MEQ TABLET.ER PO SCH ×2 (09:00→17:36)
--- NOTE | 2019-02-01 13:23 | Spine Progress Note ---
Date of Encounter: 02/01/19 Time of Encounter: 13:21 - Assessment and Plan (1) Compression fracture of L1 lumbar vertebra Current Visit: Yes Status: Acute On exam she is lying in bed in moderate distress secondary to back pain. Afebrile vital signs stable. She is neurovascularly intact with regard to her bilateral lower extremities. Sensation is intact. Her hips move symmetrically. She has no clonus. She has tenderness to palpation in the thoracic or lumbar spine. CT exam of the lumbar spine reveals a compression fracture involving the L1 perry tebral body. This approximately 50% height loss. There does not appear to be significant retropulsion of fragments into the canal. Impression: 1) osteopenia 2) vertebral compression fracture Plan: I would like to get an MRI of the lumbar spine to definitively ascertain the acuity of the fracture and to evaluate the amount of stenosis if present at the fracture level. I discussed treatment options for an acute fracture which include bracing and analgesics, analgesics alone, or kyphoplasty. Patient is amenable to kyphoplasty but we will only proceed if the MRI confirms acuity of the fracture. Patient understands she would need to be medically optimized prior to surgical intervention. Qualifiers: Encounter type: initial encounter Qualified Code(s): S32.010A - Wedge compression fracture of first lumbar vertebra, initial encounter for closed fracture Subjective Principal diagnosis: osteopenia, vertebral compression fracture, back pain Interval history: Patient had a fall from steps yesterday and experienced severe back pain. She was evaluated in the [facility] ER where workup revealed a compression fracture L1. We are asked to see regarding treatment options for her fracture. She complains of pain which is a 9 on a pain scale despite narcotics. She denies radicular symptoms. She is having difficulty ambulating secondary to the pain. She denies bowel or bladder symptomatology. Objective Vital signs: Vital Signs Temp Pulse Resp BP Pulse Ox 02/01/19 07:22 99.2 F 76 16 104/70 02/01/19 03:15 98.9 F 77 15 109/73 93 01/31/19 22:36 99.0 F 74 15 110/74 92 01/31/19 20:31 98.8 F 76 16 133/77 94 01/31/19 19:00 75 16 120/81 96 01/31/19 17:10 79 16 114/101 95 01/31/19 14:08 98.1 F 77 15 129/70 97 Intake and Output 01/31/19 02/01/19 02/01/19 23:59 07:59 15:59 Intake Total 120 / 120 Balance 120 / 120 Intake: Oral 120 / 120 Other: Meal Breakfast Percent of Meal Consumed 5% # Voids 1 Weight 63.5 kg 63.4 kg Patient Weight 02/01/19 23:59 Weight 63.4 kg - Labs CBC & BMP: 02/01/19 01:15 02/01/19 01:15 Labs: Abnormal lab results WBC 4.0 K/mcL (4.3-11.1) L 02/01/19 01:15 Hgb 15.5 g/dL (11.5-15.4) H 01/31/19 15:41 Hct 46.1 % (35.3-44.9) H 01/31/19 15:41 Plt Count 107 K/mcL (140-400) L 02/01/19 01:15 MPV 8.8 fL (9.4-12.4) L 02/01/19 01:15 PT 30.0 Seconds (9.4-12.1) H 02/01/19 01:15 APTT 45.1 Seconds (26.0-36.0) H 02/01/19 01:15 Sodium 135 mEq/L (136-145) L 02/01/19 01:15 Carbon Dioxide 21 mEq/L (23-29) L 02/01/19 01:15 Creatinine 1.45 mg/dL (0.60-1.20) H 02/01/19 01:15 Est GFR ( Amer) 45 (> 60) L 02/01/19 01:15 Est GFR (Non-Af Amer) 37 (> 60) L 02/01/19 01:15 Glucose 132 mg/dL (70-105) H 02/01/19 01:15 Calcium 10.9 mg/dL (8.6-10.3) H 01/31/19 15:41 AST 40 Units/L (13-39) H 01/31/19 15:41 ALT 58 Units/L (7-52) H 01/31/19 15:41 Alkaline Phosphatase 112 Units/L (34-104) H 01/31/19 15:41 Serum Total Protein 6.0 g/dL (6.4-8.9) L 02/01/19 01:15 Globulin 2.1 g/dL (2.4-3.5) L 02/01/19 01:15 HDL Cholesterol 61 mg/dL (40-59) H 02/01/19 01:15 Consult Discharge Plan - Plan Referrals: Kerry Farris MD [Primary Care Provider] -
[2019-02-01] MEDS ORDERED: *HR* LORazepam 2 MG/ML VIAL IVP ONE (13:50)
[2019-02-01] MEDS: FLUoxetine 20 MG CAPSULE PO SCH (13:56)
[2019-02-01] MEDS ORDERED: Naloxone 0.4 MG/ML INJ IVP PRN (13:58)
[2019-02-01] MEDS ORDERED: Acetaminophen 325 MG TABLET PO PRN (13:58)
--- NOTE | 2019-02-01 14:00 | Internal Med Progress Note ---
Hospitalist Progress Note - Encounter Date of Encounter: 02/01/19 Time of Encounter: 09:45 - Subjective Interval History: Patient seen at bedside. Still complaining of severe pain in the back. CT scan of the head was negative as mentioned. Denies fever, chills, rigors. Denies chest pain or shortness of breath. Mentions that he was diagnosed with UTI and was treated with antibiotic as an outpatient. No other overnight events. - Exam Vitals: Temp Pulse Resp BP Pulse Ox 99.2 F 76 16 104/70 93 02/01/19 07:22 02/01/19 07:22 02/01/19 07:22 02/01/19 07:22 02/01/19 03:15 Exam: General: Alert and oriented, moderate physical distress, able to follow commands. HEENT: No thyromegaly, no lymphadenopathy, no discharge. Eyes: No discharge. Normal conjuctiva, no icterus Respiratory: Normal vesicular breathing, no added sounds, breathing equal in both sides. CVS: Normal heart sounds, no murmurs, regular rhthm, no edema Extremities: No peripheral edema, peripheral pulses intact. Lymph nodes: No lymphadenopathy Musculoskeletal: Tenderness in the back Gastrointestinal: Soft, nontender abdomen, normal abdominal sounds. No distention noted. Genitourinary: No paravertebral tenderness. Skin: No rash, ulcers or wound. Neurological: Alert and oriented. No focal deficits. Cranial nerves II-XII intact. - Assessment and Plan (1) Compression fracture of L1 lumbar vertebra Current Visit: Yes Status: Acute Assessment and Plan: -Orthopedics on board. Plan for MRI for further visualization. Pain control and bedrest. Await further orthopedic accommodation. Hold off on Coumadin if patient required surgery. (2) Elevated liver enzymes Current Visit: Yes Status: Acute Assessment and Plan: -HEENT and AST were mildly elevated at the time of presentation. Ultrasonogram of the liver was done which was normal. Levels have normalized The etiology is unclear. Continue to monitor. (3) CKD (chronic kidney disease) stage 3, GFR 30-59 ml/min Current Visit: Yes Status: Chronic Assessment and Plan: Baseline creatinine of 1.2. Creatinine of 1.45. History of stage III C CKD Continue to monitor the kidney functions. -Avoid nephrotoxins. (4) Antiphospholipid antibody syndrome Current Visit: Yes Status: Chronic Assessment and Plan: -Hold Coumadin for possible surgical intervention. -Monitor INR daily; start Heparin drip when INR drops to < 1.5. (5) DVT prophylaxis Current Visit: Yes Status: Acute Assessment and Plan: -As above regarding Coumadin and Heparin drip. (6) UTI (urinary tract infection) Current Visit: No Status: Acute Assessment and Plan: -Was being treated with the bactrim as outpt -COntinue in the hospital (7) Depression Current Visit: Yes Status: Acute Assessment and Plan: -Continue the home meds (8) Hypothyroidism Current Visit: Yes Status: Acute Assessment and Plan: -Continue home dose of thyroxine - Time Spent with Patient Total time spent is greater than 50% in coordination of care (as documented) at patient's floor/unit and/or counseling patient: Internal Medicine: Result - Labs CBC & Chem 7: 02/01/19 01:15 02/01/19 01:15 Labs: Short CBC 01/31/19 02/01/19 Range/Units 15:41 01:15 WBC 4.0 L (4.3-11.1) K/mcL Hgb 15.5 H 13.5 D (11.5-15.4) g/dL Hct 46.1 H 40.1 (35.3-44.9) % Plt Count 107 L (140-400) K/mcL Neutrophils # 2.7 (1.6-8.9) K/mcL BMP 01/31/19 02/01/19 15:41 01:15 Sodium 136 135 L Potassium 4.3 4.3 Chloride 103 105 Carbon Dioxide 27 21 L BUN 14 16 Creatinine 1.47 H 1.45 H Glucose 99 132 H Calcium 10.9 H 10.1 Cardiac Enzymes 02/01/19 02/01/19 02/01/19 Range/Units 01:15 05:43 11:29 Troponin I < 0.03 < 0.03 < 0.03 (< 0.04) ng/mL Liver Function 01/31/19 02/01/19 Range/Units 15:41 01:15 Total Bilirubin 0.4 0.6 (0.3-1.0) mg/dL AST 40 H 29 (13-39) Units/L ALT 58 H 44 (7-52) Units/L Alkaline Phosphatase 112 H 92 (34-104) Units/L Albumin 4.4 3.9 (3.5-5.7) g/dL - ABG Interpretation ABG results: PT/INR, D-dimer PT 30.0 Seconds (9.4-12.1) H 02/01/19 01:15 - Impressions Impressions Abdomen/Pelvis CT 01/31/19 16:16 IMPRESSION: L1 compression fracture Bilateral nephrolithiasis. D/ / Amaury Crenshaw MD / Amaury Crenshaw MD Interpreting Provider: Amaury Crenshaw MD Cervical Spine CT 01/31/19 16:17 IMPRESSION: No acute abnormality of the cervical spine. D/ / Hawk Tran MD / Hawk Tran MD Interpreting Provider: Hawk Tran MD Head CT 01/31/19 16:17 IMPRESSION: No acute intracranial abnormality. D/ / Amaury Crenshaw MD / Amaury Crenshaw MD Interpreting Provider: Amaury Crenshaw MD Lumbar Spine CT 01/31/19 16:17 IMPRESSION: 1. Acute compression deformity of the L1 vertebral body. No retropulsion of fracture fragments. No canal narrowing. 2. No other acute abnormality identified 3. Findings were discussed with Shannon Arreola PAC at 5:39 pm on 01/31/2019. D/ / Hawk Tran MD / Hawk Tran MD Interpreting Provider: Hawk Tran MD Thoracic Spine CT 01/31/19 16:17 IMPRESSION: L1 compression fracture. No convincing evidence of acute fracture traumatic malalignment involving the thoracic spine. Overall moderate degenerative changes. D/ / Ismael Giron / Ismael Giron Interpreting Provider: Ismael Giron Liver Ultrasound 01/31/19 18:56 IMPRESSION: Minimal sludge in the gallbladder. Borderline prominence of the common bile duct. Otherwise, unremarkable right upper quadrant ultrasound. D/ / Tuan Rosenbaum MD / Tuan Rosenbaum MD Interpreting Provider: Tuan Rosenbaum MD Head CT 02/01/19 06:00 IMPRESSION: No acute intracranial abnormality. D/ / Turner Johnston MD / Turner Johnston MD Interpreting Provider: Turner Johnston MD Consult Discharge Plan - Plan Referrals: Kerry Farris MD [Primary Care Provider] - (1) Compression fracture of L1 lumbar vertebra Qualifiers: Encounter type: initial encounter Qualified Code(s): S32.010A - Wedge compression fracture of first lumbar vertebra, initial encounter for closed fracture (6) UTI (urinary tract infection) Qualifiers: Urinary tract infection type: acute cystitis Hematuria presence: with hematuria Qualified Code(s): N30.01 - Acute cystitis with hematuria (7) Depression Qualifiers: Depression Type: unspecified Qualified Code(s): F32.9 - Major depressive disorder, single episode, unspecified (8) Hypothyroidism Qualifiers: Hypothyroidism type: unspecified Qualified Code(s): E03.9 - Hypothyroidism, unspecified
[2019-02-01] MEDS: *HR* HYDROcodone/Acet 5/325 mg TABLET PO PRN ×2 (14:35→20:46)
--- NOTE | 2019-02-01 16:15 | Electrocardiograph Report ---
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
[2019-02-01] MEDS: traZODone 50 MG TABLET PO SCH (20:45)
[2019-02-01] MEDS: Famotidine 20 MG TABLET PO SCH (20:45)
[2019-02-01] MEDS: Sulfamethoxazole/Trimeth DS 1 EACH TABLET PO SCH (20:46)
[2019-02-02] MEDS: *HR* HYDROcodone/Acet 5/325 mg TABLET PO PRN (06:12)
[2019-02-02 06:37] LABS: INR 1.7; Prothrombin Time 19.8 Seconds (9.4-12.1)
[2019-02-02 06:46] LABS: Alanine Aminotransferase 31 Units/L (7-52); Albumin 3.5 g/dL (3.5-5.7); Albumin/Globulin Ratio 1.6 (1.1-2.2); Alkaline Phosphatase 77 Units/L (34-104); Aspartate Amino Transferase 20 Units/L (13-39); BUN/Creatinine Ratio 10 (6-26); Bilirubin,Total 0.7 mg/dL (0.3-1.0); Blood Urea Nitrogen 11 mg/dL (6-20); Calcium 9.4 mg/dL (8.6-10.3); Carbon Dioxide 21 mEq/L (23-29); Chloride 109 mEq/L (98-107); Globulin 2.2 g/dL (2.4-3.5); Glucose 97 mg/dL (70-105); Magnesium 1.8 mg/dL (1.6-2.6); Osmolality,Calculated 285 (280-300); Potassium 4.1 mEq/L (3.5-5.1); Sodium 138 mEq/L (136-145); Total Protein 5.7 g/dL (6.4-8.9); eGFR For African Americans > 60 (> 60); eGFR For Non-African Americans 51 (> 60)
[2019-02-02] MEDS ORDERED: CeFAZolin Syr 2,000MG/20 ML 2,000 MG/20 ML SYRINGE IVPB ONE (08:00)
[2019-02-02] MEDS: FLUoxetine 20 MG CAPSULE PO SCH (09:15)
[2019-02-02] MEDS: Sulfamethoxazole/Trimeth DS 1 EACH TABLET PO SCH ×2 (09:15→22:15)
[2019-02-02] MEDS: Topiramate 25 MG TABLET PO SCH ×2 (09:15→22:16)
[2019-02-02] MEDS: BuPROPion SR (12 HR) 150 MG TABLET PO SCH ×2 (09:15→22:15)
[2019-02-02] MEDS: Potassium Citrate 10 MEQ TABLET.ER PO SCH ×2 (09:15→22:15)
[2019-02-02] MEDS: *HR* OxyCODONE Immed Rel 5 MG TABLET PO PRN ×2 (09:26→21:41)
--- NOTE | 2019-02-02 14:31 | Internal Med Progress Note ---
Hospitalist Progress Note - Encounter Date of Encounter: 02/02/19 Time of Encounter: 11:15 - Subjective Interval History: Patient was seen at bedside. Currently at a bit drowsy because of the pain medication. GOt the MRI yesterday. Scheduled for kyphoplasty today. is at bedside who mentions that the pain is well controlled. Patient is curre ntly nothing by mouth. Likely going to overnight. No fever recorded. - Exam Vitals: Temp Pulse Resp BP Pulse Ox 98.1 F 78 16 114/78 97 02/02/19 06:42 02/02/19 06:42 02/02/19 06:42 02/02/19 06:42 02/02/19 06:42 Exam: General: Drowsy but oriented, moderate physical distress, able to follow commands. Respiratory: Normal vesicular breathing, no added sounds, breathing equal in both sides. CVS: Normal heart sounds, no murmurs, regular rhthm, no edema Extremities: No peripheral edema, peripheral pulses intact. Lymph nodes: No lymphadenopathy Musculoskeletal: Tenderness in the back Gastrointestinal: Soft, nontender abdomen, normal abdominal sounds. No distention noted. Genitourinary: No paravertebral tenderness. Skin: No rash, ulcers or wound. Neurological: Alert and oriented. No focal deficits. Cranial nerves II-XII intact. - Assessment and Plan (1) Compression fracture of L1 lumbar vertebra Current Visit: Yes Status: Acute Assessment and Plan: -Patient had a fall leading to L1 compression fracture. MRI spine showed acute L1 compression fracture with 40% anterior vertebral body height loss and posterior cortex retropulsion. Orthopedics on board. Planning for the surgery today. Pain control and bedrest. -INR of 1.7 today. Hold off on Coumadin in context of surgery. (2) Elevated liver enzymes Current Visit: Yes Status: Acute Assessment and Plan: -ALT and AST were mildly elevated at the time of presentation. Ultrasonogram of the liver was done which was normal. Levels have normalized The etiology is unclear. Continue to monitor. (3) CKD (chronic kidney disease) stage 3, GFR 30-59 ml/min Current Visit: Yes Status: Chronic Assessment and Plan: Baseline creatinine of 1.2. Creatinine of 1.45 at presnetaion, is normal today at 1.12 (baseline) History of stage III C CKD Continue to monitor the kidney functions. -Avoid nephrotoxins. -Considering NPO status will start on IV fluids. (4) Antiphospholipid antibody syndrome Current Visit: Yes Status: Chronic Assessment and Plan: -Coumadin on hold for possible surgical intervention. -Monitor INR daily -D/W ortho, start the pt on heparin drip tomorrow morning, will restart coumadin tomorrow. (5) DVT prophylaxis Current Visit: Yes Status: Acute Assessment and Plan: -INR 1.7 -Plan As above regarding Coumadin and Heparin drip. (6) UTI (urinary tract infection) Current Visit: No Status: Acute Assessment and Plan: -Was being treated with the bactrim as outpt -COntinue in the hospital until 02/06 (7) Depression Current Visit: Yes Status: Acute Assessment and Plan: -Continue the home meds (8) Hypothyroidism Current Visit: Yes Status: Acute Assessment and Plan: -Continue home dose of thyroxine - Time Spent with Patient Total time spent is greater than 50% in coordination of care (as documented) at patient's floor/unit and/or counseling patient: Internal Medicine: Result - Labs CBC & Chem 7: 02/01/19 01:15 02/02/19 06:03 Labs: BMP 02/02/19 06:03 Sodium 138 Potassium 4.1 Chloride 109 H Carbon Dioxide 21 L BUN 11 Creatinine 1.11 Glucose 97 Calcium 9.4 Liver Function 02/02/19 Range/Units 06:03 Total Bilirubin 0.7 (0.3-1.0) mg/dL AST 20 (13-39) Units/L ALT 31 (7-52) Units/L Alkaline Phosphatase 77 (34-104) Units/L Albumin 3.5 (3.5-5.7) g/dL - ABG Interpretation ABG results: PT/INR, D-dimer PT 19.8 Seconds (9.4-12.1) H 02/02/19 06:03 - Impressions Impressions Lumbar Spine MRI 02/01/19 12:49 IMPRESSION: 1. Acute L1 compression fracture with 40% anterior vertebral body height loss and posterior cortex retropulsion causing mild spinal canal stenosis. 2. Mild L3-4 and L4-5 degenerative changes. D/ / Carlton Dunaway / Carlton Dunaway Interpreting Provider: Carlton Dunaway - VTE Documentation of Mechanical Device: Graduated compression elastic hosiery Consult Discharge Plan - Plan Referrals: Kerry Farris MD [Primary Care Provider] - (1) Compression fracture of L1 lumbar vertebra Qualifiers: Encounter type: initial encounter Qualified Code(s): S32.010A - Wedge compression fracture of first lumbar vertebra, initial encounter for closed fracture (6) UTI (urinary tract infection) Qualifiers: Urinary tract infection type: acute cystitis Hematuria presence: with hematuria Qualified Code(s): N30.01 - Acute cystitis with hematuria (7) Depression Qualifiers: Depression Type: unspecified Qualified Code(s): F32.9 - Major depressive di sorder, single episode, unspecified (8) Hypothyroidism Qualifiers: Hypothyroidism type: unspecified Qualified Code(s): E03.9 - Hypothyroidism, unspecified
[2019-02-02] MEDS ORDERED: Ringers Solution, Lactated 1,000 ML IVC SCH (14:45)
[2019-02-02] MEDS: Famotidine 20 MG TABLET PO SCH (22:15)
[2019-02-02] MEDS: traZODone 50 MG TABLET PO SCH (22:16)
--- NOTE | 2019-02-02 22:32 | Anesthesia Evaluation PreOp ---
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 History: Seizures, Other (Dementia) Other Medical History: Renal (CKD stage 3), Other (Anxiety Depression) Anesthesia History: No Prior Anesthetic Complications Alcohol Use: none Drug use: none Medications and Allergies Atorvastatin Calcium [Lipitor] 20 mg PO DAILY 12/16/17 [History] BuPROPion SR (12 HR) [Wellbutrin SR] 150 mg PO QPM 12/16/17 [History] BuPROPion SR (12 HR) [Wellbutrin SR] 300 mg PO QAM 12/16/17 [History] Levothyroxine [Synthroid] 100 mcg PO 0630 12/16/17 [History] Quetiapine Fumarate [Seroquel] 100 mg PO HS 12/16/17 [History] Spironolactone [Aldactone] 50 mg PO BID 12/16/17 [History] Topiramate [Topamax] 25 mg PO BID 12/16/17 [History] raNITIdine HCl [Ranitidine HCl] 300 mg PO HS 12/16/17 [History] Aspirin [Lo-Dose Aspirin EC] 81 mg PO DAILY 01/31/19 [History] Cholecalciferol (D-3) [Vitamin D] 1,000 unit PO DAILY 01/31/19 [History] FLUoxetine HCl [Fluoxetine HCl] 40 mg PO DAILY 01/31/19 [History] Potassium Citrate [Urocit-K] 10 meq PO QAM 01/31/19 [History] Potassium Citrate [Urocit-K] 20 meq PO QPM 01/31/19 [History] Trazodone HCl 300 mg PO HS 01/31/19 [History] Warfarin Sodium 2.5 mg PO MOFR 01/31/19 [History] Warfarin Sodium 5 mg PO SUTUWETHSA 01/31/19 [History] Allergy/AdvReac Type Severity Reaction Status Date / Time divalproex sodium AdvReac See Verified 01/31/19 14:07 [From Depakote] Comments phenytoin [From Dilantin] AdvReac Hives Verified 01/31/19 14:07 - Meds/Allergy Pre-op Review Medications Reviewed: Yes Allergies Reviewed: Yes Beta Blockers on Current Med List: No Anesthesia Results - Labs 02/01/19 01:15 02/02/19 06:03 Laboratory Tests 02/01/19 02/02/19 01:15 06:03 Hgb 13.5 D Hct 40.1 Plt Count 107 L Sodium 138 Potassium 4.1 BUN 11 Creatinine 1.11 AST 20 ALT 31 Alkaline Phosphatase 77 - Imaging EKG: report reviewed (SR) Anesthesia Exam O2 Sat O2 Sat by Pulse Oximetry 92 O2 Sat by Pulse Oximetry 97 O2 Sat by Pulse Oximetry 95 Vital Signs Temp Pulse Resp BP Pulse Ox 98.1 F 77 15 129/70 97 01/31/19 14:08 01/31/19 14:08 01/31/19 14:08 01/31/19 14:08 01/31/19 14:08 Height: 5'1 Weight: 139 lbs NPO (# of Hours): MN Pain Scale: 0 - HEENT Pupil (Motor): Pupils equal, EOMI Mallampati: II Teeth: Normal Oral Opening: Greater than 3 - MANAGER SERVICE DESK LOC: Oriented MANAGER SERVICE DESK Motor: Normal RUE, Normal LUE, Normal RLE, Normal LLE, Normal Face [employer]NAGER [employer]ICE DESK Sensory: Normal: RUE, LUE, RLE, LLE, Face - Cardiac Rhythm: Regular Murmur: None JVD: No Carotid Bruit: No - Pulmonary Breath Sounds: bilateral Clear Respiratory Effort: Symmetrical Anesthesia Assess/Plan ASA Score: 3 (HTN CVA CKD Antiphospholipid) Level of consciousness: Cooperative, Oriented Anesthetic Plan: General Autologous Blood: No Monitoring Plan: Standard Monitors Recovery Plan: PACU (Discussed GA, agrees to proceed)
[2019-02-02] MEDS ORDERED: *HR* OxyCODONE Immed Rel 5 MG TABLET PO PRN (22:36)
[2019-02-02] MEDS ORDERED: *HR* Promethazine 25 MG/ML VIAL IVP PRN (22:36)
[2019-02-02] MEDS ORDERED: *HR* HYDROmorphone (PF) 1 MG/ML SYRINGE IVP PRN (22:36)
[2019-02-02] MEDS ORDERED: Ondansetron 4 MG/2 ML VIAL IVP ONE (22:36)
[2019-02-02] MEDS ORDERED: *HR* Propofol 200 MG/20 ML VIAL IVP ONE (22:49)
[2019-02-02] MEDS ORDERED: *HR* FentaNYL (PF) 100 MCG/2 ML VIAL ONE (22:49)
[2019-02-02] MEDS ORDERED: Lidocaine -MPF 2% 2 ML VIAL ONE (22:50)
[2019-02-02] MEDS ORDERED: Ondansetron 4 MG/2 ML VIAL ONE (22:50)
[2019-02-02] MEDS ORDERED: Lidocaine -MPF 4% 5 ML AMPUL ONE (22:50)
[2019-02-02] MEDS ORDERED: Dexamethasone 4 MG/ML VIAL ONE (22:50)
[2019-02-02] MEDS ORDERED: Isovue-300 50 ML VIAL ONE (23:06)
[2019-02-02] MEDS ORDERED: *HR* Succinylcholine 200 MG/10 ML VIAL IVP ONE (23:27)
[2019-02-02] MEDS ORDERED: *HR* HYDROMORPHONE 2 MG/ML VIAL ONE (23:44)
[2019-02-03] MEDS ORDERED: *HR* PHENYLEPHRINE 1,000 MCG/10 ML SYRINGE IVP ONE (00:25)
--- NOTE | 2019-02-03 00:31 | Orthopedic Operative Note ---
Date of procedure: 02/03/19 Pre-op diagnosis: Vertebral compression fracture, osteopenia Post-op diagnosis: same Operation/Findings: Kyphoplasty L1: The patient was brought to the operative theater where successful endotracheal anesthesia was performed. The patient was given antibiotics prior to the start of the procedure. Compression boots and stockings were used for deep vein thrombosis. Patient was then turned prone on a well-padded Bryan table. The back was prepped and draped in the usual sterile fashion. 2 C-arm fluorographic devices were brought into position such that simultaneous AP and lateral views centered over the involved as involved L1 vertebral body could be performed. A stab incision was made over the superior- lateral aspect of the left L1 pedicle. We introduced a Jamshidi needle into the vertebral body via a transpedicular route. We took biplanar images of the vertebral body using fluorography. The needle was found to be in appropriate position and within the confines of the L1 vertebral body. We then introduced a biopsy trocar and obtained a biopsy specimen of the L1 vertebral body. This was sent for pathologic evaluation. We then removed the biopsy trocar and introduced a Kyphon balloon. The balloon was insufflated to approximately 5 mL volume and subsequently deflated. The balloon was seen to expand within the confines of the L1 vertebral body on biplanar fluorographic views. The balloon was then removed. n we then some inserted cement trochars and sequentially placed bone cement within the confines of the L1 vertebral body. We took intermittent fluorographic views which confirmed satisfactory placement of the cement. After completion of the cementation process, the trocar was removed. We took final AP and lateral fluorographic views. We then closed the stab incision with 2-0 nylon suture. A Band-Aid was placed over the wound. The patient was turned supine on a hospital bed and extubated. All sponge instrument and needle counts were correct at the end of the procedure. The patient tolerated the procedure well without complications. Anesthesia: GETA Surgeon: Vinay Ness Jr Was there an resident assistant cna present: No Estimated blood loss (cc): 2 Specimen: L1 vertebral biopsy Condition: stable Disposition: PACU
[2019-02-03] MEDS ORDERED: Neostigmine Methylsulfate 3 MG/3 ML SYRINGE ONE (00:41)
--- NOTE | 2019-02-03 01:21 | Anesthesia Evaluation Post Op ---
Date of Encounter: 02/03/19 Time of Encounter: 01:25 - Vital Signs Vital Signs: Vital Signs/O2 Sat/Glucose, Most Current Temp Pulse Resp BP Pulse Ox 02/03/19 01:10 73 12 120/73 95 02/03/19 01:00 75 12 107/65 95 02/03/19 00:50 100 F H 76 12 115/67 95 02/02/19 22:41 92 - Lungs Lungs: Clear Ascult./Percussion - Airway Airway: Non-obstructed - Cardiovascular Regular Rate - Mental Status Mental Status: Alert & Oriented, Answers Appropriately - Pain Pain Scale: 0 - Nausea Vomiting Nausea Vomiting: Not Present - Hydration Hydration: Ice chips - Discharge PostOp Status: Transfer Patient to floor
[2019-02-03] MEDS ORDERED: *HR* Warfarin 5 MG TABLET PO SCH (01:33)
[2019-02-03] MEDS ORDERED: Ondansetron 4 MG/2 ML VIAL IVP PRN (01:33)
[2019-02-03] MEDS ORDERED: Ringers Solution, Lactated 1,000 ML IVC SCH (01:33)
[2019-02-03] MEDS: Aspirin Enteric Coated 81 MG Tablet PO SCH (09:43)
[2019-02-03] MEDS: FLUoxetine 20 MG CAPSULE PO SCH (09:43)
[2019-02-03] MEDS: Cholecalciferol (D-3) 1,000 UNIT (25MCG) TABLET PO SCH (09:43)
[2019-02-03] MEDS: *HR* OxyCODONE Immed Rel 5 MG TABLET PO PRN ×2 (11:06→20:49)
[2019-02-03 11:40] LABS: INR 1.6
--- NOTE | 2019-02-03 11:40 | Orthopedics Progress Note ---
Date of Encounter: 02/03/19 Time of Encounter: 12:20 - Assessment and Plan (1) Osteopenia Status: Chronic Qualifiers: Osteopenia location: unspecified Qualified Code(s): M85.80 - Other specified disorders of bone density and structure, unspecified site (2) Status post kyphoplasty Status: Acute (3) Compression fracture of L1 lumbar vertebra Status: Acute Qualifiers: Encounter type: initial encounter Qualified Code(s): S32.010A - Wedge compression fracture of first lumbar vertebra, initial encounter for closed fracture Subjective Principal diagnosis: osteopenia, vertebral compression fracture, back pain Interval history: POD#1 s/p Kyphoplasty L1 [Vertebral compression fracture, osteopenia] 02/03/19 Patient seen at bedside. A&Ox3 Dressing and incision c/d/i No calf tenderness, erythema, or warmth. Neurovascularly intact b/l LE. Labwork, vitals, and medications reviewed. Pain control: Adequate Participating in therapy. All questions and concerns addressed. Educated on use of incentive spirometer, ambulation, and hydration. Patient educated on post-operative restrictions and care. Addressed: see above. Patient course and disposition discussed with Dr. Ness D/C plan:. per hospitalist team Keep outpatient follow up as scheduled Objective Vital signs: Vital Signs Temp Pulse Resp BP Pulse Ox 02/03/19 06:27 97.6 F 73 16 105/68 96 02/03/19 04:45 97.9 F 77 14 102/66 95 02/03/19 04:30 98.6 F 74 15 96/62 96 02/03/19 03:45 98.2 F 74 14 96/59 94 02/03/19 02:45 98.6 F 72 14 100/65 94 02/03/19 02:15 98.8 F 73 14 113/74 93 02/03/19 01:45 98.8 F 72 14 115/64 94 02/03/19 01:20 99.4 F 78 14 121/62 94 02/03/19 01:10 73 12 120/73 95 02/03/19 01:00 75 12 107/65 95 02/03/19 00:50 100 F H 76 12 115/67 95 02/02/19 22:41 92 02/02/19 19:30 99.4 F 80 17 123/76 92 Intake and Output 0802/03/19 02/03/19 23:59 07:59 15:59 Intake Total 250 / 350 100 / 350 Output Total 2 / 2 Balance 248 / 348 100 / 348 Intake: IV Fluids 100 / 100 Ancef 2,000 MG In 0.9 % Sodium 100 / 100 Chloride 100 ML @ 200 mls/hr IVPB Q8HR [facility] Rx#:[id number] Oral 250 / 250 Output: Estimated Blood Loss 2 / 2 Other: Weight 63.3 kg Patient Weight 02/03/19 23:59 Weight 63.3 kg - Labs CBC & BMP: 02/04/19 01:24 02/04/19 01:24 Labs: Abnormal lab results WBC 4.0 K/mcL (4.3-11.1) L 02/01/19 01:15 Hgb 15.5 g/dL (11.5-15.4) H 01/31/19 15:41 Hct 46.1 % (35.3-44.9) H 01/31/19 15:41 Plt Count 107 K/mcL (140-400) L 02/01/19 01:15 MPV 8.8 fL (9.4-12.4) L 02/01/19 01:15 PT 19.8 Seconds (9.4-12.1) H 02/02/19 06:03 APTT 45.1 Seconds (26.0-36.0) H 02/01/19 01:15 Sodium 135 mEq/L (136-145) L 02/01/19 01:15 Chloride 109 mEq/L (98-107) H 02/02/19 06:03 Carbon Dioxide 21 mEq/L (23-29) L 02/02/19 06:03 Creatinine 1.45 mg/dL (0.60-1.20) H 02/01/19 01:15 Est GFR ( Amer) 45 (> 60) L 02/01/19 01:15 Est GFR (Non-Af Amer) 51 (> 60) L 02/02/19 06:03 Glucose 132 mg/dL (70-105) H 02/01/19 01:15 Calcium 10.9 mg/dL (8.6-10.3) H 01/31/19 15:41 AST 40 Units/L (13-39) H 08/26/19 15:41 ALT 58 Units/L (7-52) H 01/31/19 15:41 Alkaline Phosphatase 112 Units/L (34-104) H 01/31/19 15:41 Serum Total Protein 5.7 g/dL (6.4-8.9) L 02/02/19 06:03 Globulin 2.2 g/dL (2.4-3.5) L 02/02/19 06:03 HDL Cholesterol 61 mg/dL (40-59) H 02/01/19 01:15 - VTE Documentation of Mechanical Device: Graduated compression elastic hosiery Consult Discharge Plan - Plan Additional Instructions: Discharge Instructions: Lumbar Please call [facility] ([phone]), your Primary Care Physician, or report to the ER if you have any of the following symptoms: Fever greater that 101.5, increased pain/redness/drainage/odor for your incision site or any other concerning symptoms. ACTIVITY * May Shower * No Tub Baths * No lifting greater than 10 pounds * No Smoking * No Swimming * No off Ground Activities (Running, Climbing, Ladders, Horseback Riding) * No Driving * Wear Back Brace when up walking if lumbar fusion done * Incentive Spirometer 10 times an hour MEDICATIONS: Upon discharge resume your home medications. Take all the medications as prescribed. Take a stool softener if taking narcotic pain medications. Stool softeners are only effective if you drink enough fluids. Drink 6-8 glass of water or fluids a day, unless this is not allowed for another health problem. Despite using stool softeners, if you haven't had a bowel movement in 3 days, please switch to a gentle laxative. Gentle laxatives are sold over the counter. You should have a bowel movement within 24 hours, if not call the office. You will be discharged from the hospital with a prescription for pain medi cation. You are encouraged to decrease the use of narcotic pain medication as tolerated. Should you require a refill, please call the office. It is best to call 48-72 hours in advance of needing a prescription refill so you don't run out of medication. WOUND CARE: Remove Dressing Tomorrow. Leave incision open to air. Pat dry when you get out of the shower. FOLLOW-UP: Please follow up with your surgeon in the orthopedic clinic in 2 weeks from the day of surgery. References: [place] ([email or web address]) Referrals: Kerry Farris MD [Primary Care Provider] - Prescriptions: OxyCODONE Immed Rel [Roxicodone 5 MG] 5 mg PO Q8H PRN 5 Days #15 tablet PRN Reason: Severe Pain
[2019-02-03] MEDS ORDERED: *HR* Heparin 5,000 UNIT/ML VIAL IVP PRN ×2 (12:08)
[2019-02-03] MEDS ORDERED: Heparin 25,000 UNIT/250 ML D5W 25,000 UNIT/250 ML IV.SOLN IVC SCH (12:15)
--- NOTE | 2019-02-03 12:15 | Internal Med Progress Note ---
Hospitalist Progress Note - Encounter Date of Encounter: 02/03/19 Time of Encounter: 09:00 - Subjective Interval History: Patient got his surgery yesterday. Mentioned improvement in the pain. Denies fever, chills, rigors. Denies any chest pain or shortness of breath. Has been doing fine. Was evaluated by the PT/OT today in the morning. No other ove rnight events. - Exam Vitals: Temp Pulse Resp BP Pulse Ox 97.6 F 73 16 105/68 96 02/03/19 06:27 02/03/19 06:27 02/03/19 06:27 02/03/19 06:27 02/03/19 06:27 Exam: General: Drowsy but oriented, moderate physical distress, able to follow commands. Respiratory: Normal vesicular breathing, no added sounds, breathing equal in both sides. CVS: Normal heart sounds, no murmurs, regular rhthm, no edema Extremities: No peripheral edema, peripheral pulses intact. Lymph nodes: No lymphadenopathy Musculoskeletal: Tenderness in the back Gastrointestinal: Soft, nontender abdomen, normal abdominal sounds. No distention noted. Genitourinary: No paravertebral tenderness. Skin: No rash, ulcers or wound. Neurological: Alert and oriented. No focal deficits. Cranial nerves II-XII intact. - Assessment and Plan (1) Compression fracture of L1 lumbar vertebra Current Visit: Yes Status: Acute Assessment and Plan: -Patient had a fall leading to L1 compression fracture. MRI spine showed acute L1 compression fracture with 40% anterior vertebral body height loss and posterior cortex retropulsion. Orthopedics on board. Patient got kyphoplasty yesterday.. Pain control and bedrest. -Restart on Coumadin. -PT/OT (2) Elevated liver enzymes Current Visit: Yes Status: Acute Assessment and Plan: -ALT and AST were mildly elevated at the time of presentation. Ultrasonogram of the liver was done which was normal. Levels have normalized The etiology is unclear. Continue to monitor. (3) CKD (chronic kidney disease) stage 3, GFR 30-59 ml/min Current Visit: Yes Status: Chronic Assessment and Plan: Baseline creatinine of 1.2. Creatinine of 1.45 at presnetaion, went back to baseline afterwards. History of stage III C CKD Continue to monitor the kidney functions. -Avoid nephrotoxins. (4) Antiphospholipid antibody syndrome Current Visit: Yes Status: Chronic Assessment and Plan: -Coumadin was on hold because of the surgical interventions. INR 1.6 today. Considering the patient's history of multiple DVTs and antiphospholipid syndrome, bridge the patient on heparin drip. Restart the patient on Coumadin. -Monitor INR daily (5) DVT prophylaxis Current Visit: Yes Status: Acute Assessment and Plan: -INR 1.6 -Plan As above regarding Coumadin and Heparin drip. (6) UTI (urinary tract infection) Current Visit: No Status: Acute (7) Depression Current Visit: Yes Status: Acute Assessment and Plan: -Continue the home meds (8) Hypothyroidism Current Visit: Yes Status: Acute Assessment and Plan: -Continue home dose of thyroxine - Time Spent with Patient Total time spent is greater than 50% in coordination of care (as documented) at patient's floor/unit and/or counseling patient: Internal Medicine: Result - Labs CBC & Chem 7: 02/01/19 01:15 02/02/19 06:03 - ABG Interpretation ABG results: PT/INR, D-dimer PT 18.0 Seconds (9.4-12.1) H 02/03/19 11:11 - Impressions Impressions Lumbar Spine X-Ray 02/02/19 00:00 IMPRESSION: Intraprocedural fluoroscopic spot images as above. See separate procedure report for more information. D/ / Wilder Hunter / Wilder Hunter Interpreting Provider: Wilder Hunter - VTE Documentation of Mechanical Device: Graduated compression elastic hosiery Consult Discharge Plan - Plan Referrals: Kerry Farris MD [Primary Care Provider] - __ (1) Compression fracture of L1 lumbar vertebra Qualifiers: Encounter type: initial encounter Qualified Code(s): S32.010A - Wedge compression fracture of first lumbar vertebra, initial encounter for closed fracture (6) UTI (urinary tract infection) Qualifiers: Urinary tract infection type: acute cystitis Hematuria presence: with hematuria Qualified Code(s): N30.01 - Acute cystitis with hematuria (7) Depression Qualifiers: Depression Type: unspecified Qualified Code(s): F32.9 - Major depressive disorder, single episode, unspecified (8) Hypothyroidism Qualifiers: Hypothyroidism type: unspecified Qualified Code(s): E03.9 - Hypothyroidism, unspecified
[2019-02-04] MEDS ORDERED: *HR* Warfarin 5 MG TABLET PO SCH (00:33)
[2019-02-04 02:11] LABS: Basophils % 0.4 %; Eosinophils # 0.1 K/mcL (0.0-0.6); Eosinophils % 2.6 %; Hematocrit 35.9 % (35.3-44.9); Immature Granulocytes % 0.7 % (0-4); Lymphocytes # 1.8 K/mcL (0.6-4.6); Lymphocytes % 40.2 %; Mean Corpuscular HGB Conc 32.9 g/dL (31.6-35.5); Mean Corpuscular Hemoglobin 31.9 pg (28.0-33.3); Mean Platelet Volume 8.9 fL (9.4-12.4); Monocytes # 0.4 K/mcL (0.0-1.3); Neutrophils # 2.2 K/mcL (1.6-8.9); Platelet Count 101 K/mcL (140-400); Red Cell Distribution Width 12.4 % (11.5-14.5); Segmented Neutrophils % 47.1 %; White Blood Count 4.6 K/mcL (4.3-11.1)
[2019-02-04 02:18] LABS: Hemoglobin 11.8 g/dL (11.5-15.4)
[2019-02-04 02:20] LABS: INR 2.1; Prothrombin Time 23.4 Seconds (9.4-12.1)
[2019-02-04 02:28] LABS: BUN/Creatinine Ratio 14 (6-26); Blood Urea Nitrogen 13 mg/dL (6-20); Calcium 9.3 mg/dL (8.6-10.3); Carbon Dioxide 24 mEq/L (23-29); Chloride 107 mEq/L (98-107); Glucose 98 mg/dL (70-105); Magnesium 1.7 mg/dL (1.6-2.6); Osmolality,Calculated 288 (280-300); Potassium 3.6 mEq/L (3.5-5.1); Sodium 139 mEq/L (136-145); eGFR For African Americans > 60 (> 60); eGFR For Non-African Americans > 60 (> 60)
[2019-02-04] MEDS: FLUoxetine 20 MG CAPSULE PO SCH (08:39)
[2019-02-04] MEDS: Cholecalciferol (D-3) 1,000 UNIT (25MCG) TABLET PO SCH (08:40)
[2019-02-04] MEDS: Aspirin Enteric Coated 81 MG Tablet PO SCH (08:40)
[2019-02-04] MEDS ORDERED: Potassium Citrate 10 MEQ TABLET.ER PO SCH ×2 (10:00→21:00)
[2019-02-04] MEDS ORDERED: Topiramate 25 MG TABLET PO SCH (10:00)
[2019-02-04] MEDS ORDERED: BuPROPion SR (12 HR) 150 MG TABLET PO SCH ×2 (10:00→21:00)
[2019-02-04] MEDS: *HR* OxyCODONE Immed Rel 5 MG TABLET PO PRN (13:06)
--- NOTE | 2019-02-04 14:10 | Discharge Summary ---
- NOTES TO OUTPATIENT PROVIDER Notes to Outpatient Provider: Presented following a fall. MRI showed L1 comoression fracture. Got kyphoplasty. Date of Encounter: 02/04/19 Time of Encounter: 10:23 - Discharge Diagnosis (1) Compression fracture of L1 lumbar vertebra Priority: Primary Status: Acute Qualifiers: Encounter type: initial encounter Qualified Code(s): S32.010A - Wedge compression fracture of first lumbar vertebra, initial encounter for closed fracture (2) Elevated liver enzymes Priority: Secondary Status: Acute (3) CKD (chronic kidney disease) stage 3, GFR 30-59 ml/min Priority: Secondary Status: Chronic (4) Antiphospholipid antibody syndrome Priority: Secondary Status: Chronic (5) DVT prophylaxis Priority: Secondary Status: Acute (6) UTI (urinary tract infection) Priority: Secondary Status: Acute Qualifiers: Urinary tract infection type: acute cystitis Hematuria presence: with hematuria Qualified Code(s): N30.01 - Acute cystitis with hematuria (7) Depression Priority: Secondary Status: Acute Qualifiers: Depression Type: unspecified Qualified Code(s): F32.9 - Major depressive disorder, single episode, unspecified (8) Hypothyroidism Priority: Secondary Status: Acute Qualifiers: Hypothyroidism type: unspecified Qualified Code(s): E03.9 - Hypothyroidism, unspecified Hospital course: Ms. Jackson is a 58 year old female with a past medical history significant for antiphospholipid syndrome, CKD, anxiety and depression, presented to the hospital following a fall. Patient currently MRI which showed L1 compression fracture. Patient was taken to surgery by orthopedics, and got kyphoplasty done. Currently hemodynamically stable. Her Coumadin was stopped for the surgery, currently INR in therapeutic range. PT/OT recommended rehabilitation. Patient is being discharged to rehabilitation for physical therapy. Patient will be provided prescription for pain medications. Was also found to have transaminitis during that admission which normalized. Ultrasonography of the liver was normal. - Time Spent with Patient Total time spent providing and/or coordinating discharge services: 31 minutes - Discharge Medications Prescriptions: New OxyCODONE Immed Rel [Roxicodone 5 MG] 5 mg PO Q8H PRN 5 Days #15 tablet PRN Reason: Severe Pain Continued Spironolactone [Aldactone] 50 mg PO BID raNITIdine HCl [Ranitidine HCl] 300 mg PO HS Quetiapine Fumarate [Seroquel] 100 mg PO HS Topiramate [Topamax] 25 mg PO BID Levothyroxine [Synthroid] 100 mcg PO 0630 Atorvastatin Calcium [Lipitor] 20 mg PO DAILY BuPROPion SR (12 HR) [Wellbutrin SR] 300 mg PO QAM BuPROPion SR (12 HR) [Wellbutrin SR] 150 mg PO QPM Aspirin [Lo-Dose Aspirin EC] 81 mg PO DAILY Cholecalciferol (D-3) [Vitamin D] 1,000 unit PO DAILY FLUoxetine HCl [Fluoxetine HCl] 40 mg PO DAILY Potassium Citrate [Urocit-K] 10 meq PO QAM Potassium Citrate [Urocit-K] 20 meq PO QPM Trazodone HCl 300 mg PO HS Warfarin Sodium 2.5 mg PO MOFR Warfarin Sodium 5 mg PO SUTUWETHSA Home Medications: Atorvastatin Calcium [Lipitor] 20 mg PO DAILY 12/16/17 [History] BuPROPion SR (12 HR) [Wellbutrin SR] 150 mg PO QPM 12/16/17 [History] BuPROPion SR (12 HR) [Wellbutrin SR] 300 mg PO QAM 12/16/17 [History] Levothyroxine [Synthroid] 100 mcg PO 0630 12/16/17 [History] Quetiapine Fumarate [Seroquel] 100 mg PO HS 12/16/17 [History] Spironolactone [Aldactone] 50 mg PO BID 12/16/17 [History] Topiramate [Topamax] 25 mg PO BID 12/16/17 [History] raNITIdine HCl [Ranitidine HCl] 300 mg PO HS 12/16/17 [History] Aspirin [Lo-Dose Aspirin EC] 81 mg PO DAILY 01/31/19 [History] Cholecalciferol (D-3) [Vitamin D] 1,000 unit PO DAILY 01/31/19 [History] FLUoxetine HCl [Fluoxetine HCl] 40 mg PO DAILY 01/31/19 [History] Potassium Citrate [Urocit-K] 10 meq PO QAM 01/31/19 [History] Potassium Citrate [Urocit-K] 20 meq PO QPM 01/31/19 [History] Trazodone HCl 300 mg PO HS 01/31/19 [History] Warfarin Sodium 2.5 mg PO MOFR 01/31/19 [History] Warfarin Sodium 5 mg PO SUTUWETHSA 01/31/19 [History] OxyCODONE Immed Rel [Roxicodone 5 MG] 5 mg PO Q8H PRN 5 Days #15 tablet 02/04/19 [Rx] Allergies/Adverse Reactions: Allergy/AdvReac Type Severity Reaction Status Date / Time divalproex sodium AdvReac See Verified 01/31/19 14:07 [From Depakote] Comments phenytoin [From Dilantin] AdvReac Hives Verified 01/31/19 14:07 Date of admission: 02/02/19 17:45 Primary care physician: Kerry Farris MD Consults: 01/31/19 18:30 Consult to Orthopedic Surgery [CONS] Stat Consulting Provider: [facility] Reason for Consult: L1 compression fracture Time Notified: 18:12 Call Completed: Yes 01/31/19 23:38 Consult to Physician [CONS] Routine Consulting Provider: Vinay Ness Jr Reason for Consult: L1 compression fracture Call Completed: Yes 02/03/19 01:33 Consult to Occupational Therapy [CONS] Routine Comment: Evaluate, develop and implement POC Reason for Consult: Postoperative rehabilitation Does patient have active BEDREST order?: No Is patient medically & hemodynamically stable?: Yes Patient assessed for mobility or mobilized this visit?: No Consult to Physical Therapy [CONS] Routine Comment: Evaluate, develop and implement POC Reason for Consult: Postoperative rehabilitation Does patient have active BEDREST order?: No Is patient medically & hemodynamically stable?: Yes Patient assessed for mobility or mobilized this visit?: No - Constitutional Vitals: Temp Pulse Resp BP Pulse Ox 98.3 F 87 16 107/71 98 02/04/19 12:11 02/04/19 12:11 02/04/19 12:11 02/04/19 12:11 02/04/19 12:11 General appearance: Present: cooperative, A&O X 3, pleasant, no acute distress, answers questions appropriately Exam: General: Drowsy but oriented, moderate physical distress, able to follow commands. Respiratory: Normal vesicular breathing, no added sounds, breathing equal in both sides. CVS: Normal heart sounds, no murmurs, regular rhthm, no edema Extremities: No peripheral edema, peripheral pulses intact. Lymph nodes: No lymphadenopathy Musculoskeletal: Tenderness in the back Gastrointestinal: Soft, nontender abdomen, normal abdominal sounds. No distention noted. Genitourinary: No paravertebral tenderness. Skin: No rash, ulcers or wound. Neurological: Alert and oriented. No focal deficits. Cranial nerves II-XII intact. - Patient Status Disposition: Transfer SNF Condition: Good - Discharge Instructions Follow Up With: Kerry Farris MD [Primary Care Provider] - - Diet and Activity Activity: as per physical therapy, increase activity as tolerated Diet: advance to your usual diet - VTE Documentation of Mechanical Device: Graduated compression elastic hosiery
--- NOTE | 2019-02-04 14:14 | Physician Discharge Referral ---
ExtendedCare Referral Info Institutional Level of Care: Skilled - Diagnosis (1) Compression fracture of L1 lumbar vertebra Priority: Primary Status: Acute (2) Elevated liver enzymes Priority: Secondary Status: Acute (3) CKD (chronic kidney disease) stage 3, GFR 30-59 ml/min Priority: Secondary Status: Chronic (4) Antiphospholipid antibody syndrome Priority: Secondary Status: Chronic (5) DVT prophylaxis Priority: Secondary Status: Acute (6) UTI (urinary tract infection) Priority: Secondary Status: Acute (7) Depression Priority: Secondary Status: Acute (8) Hypothyroidism Priority: Secondary Status: Acute - Transfer Medications Prescriptions: OxyCODONE Immed Rel [Roxicodone 5 MG] 5 mg PO Q8H PRN 5 Days #15 tablet PRN Reason: Severe Pain Home Medications: Atorvastatin Calcium [Lipitor] 20 mg PO DAILY 12/16/17 [History] BuPROPion SR (12 HR) [Wellbutrin SR] 150 mg PO QPM 12/16/17 [History] BuPROPion SR (12 HR) [Wellbutrin SR] 300 mg PO QAM 12/16/17 [History] Levothyroxine [Synthroid] 100 mcg PO 0630 12/16/17 [History] Quetiapine Fumarate [Seroquel] 100 mg PO HS 12/16/17 [History] Spironolactone [Aldactone] 50 mg PO BID 12/16/17 [History] Topiramate [Topamax] 25 mg PO BID 12/16/17 [History] raNITIdine HCl [Ranitidine HCl] 300 mg PO HS 12/16/17 [History] Aspirin [Lo-Dose Aspirin EC] 81 mg PO DAILY 01/31/19 [History] Cholecalciferol (D-3) [Vitamin D] 1,000 unit PO DAILY 01/31/19 [History] FLUoxetine HCl [Fluoxetine HCl] 40 mg PO DAILY 01/31/19 [History] Potassium Citrate [Urocit-K] 10 meq PO QAM 01/31/19 [History] Potassium Citrate [Urocit-K] 20 meq PO QPM 01/31/19 [History] Trazodone HCl 300 mg PO HS 01/31/19 [History] Warfarin Sodium 2.5 mg PO MOFR 01/31/19 [History] Warfarin Sodium 5 mg PO SUTUWETHSA 08/26/19 [History] OxyCODONE Immed Rel [Roxicodone 5 MG] 5 mg PO Q8H PRN 5 Days #15 tablet 02/04/19 [Rx] Allergies/Adverse Reactions: Allergy/AdvReac Type Severity Reaction Status Date / Time divalproex sodium AdvReac See Verified 01/31/19 14:07 [From Depakote] Comments phenytoin [From Dilantin] AdvReac Hives Verified 01/31/19 14:07 - Respiratory Orders Smoking Cessation: Smoking cessation has been advised. For more information, call the [place] Tobacco Quit Line at 3-927-TZBTNOW. CERTIFICATION: I certify that the transfer of the above named patient to an Extended Care Facility is necessary for the continuing treatment of the diagnosis listed. The above information is true and accurate reflection of patient's current condition. Confidential - Redisclosure prohibited without a patient's written consent.
[2019-02-04 15:51] VITALS: BP 109/76
== END 2019-02-04 16:50 | DRG 478 ==
LOC: 3NENU 14:05 → EMEROOARM 14:05 → SUATTDRO 19:16 → 3NENU 19:49
PROVIDERS: ADMIT Internal Medicine Nephrology; ATTEND Internal Medicine

== ENCOUNTER 2020-05-26 00:26 | Inpatient (IN) ==
[2020-05-26] MEDS ORDERED: *HR* FentaNYL (PF) 100 MCG/2 ML VIAL IVP ONE (00:41)
[2020-05-26] MEDS ORDERED: Ondansetron 4 MG/2 ML VIAL IVP ONE (00:46)
[2020-05-26 01:46] LABS: Basophils % 0.3 %; Eosinophils % 0.7 %; Hematocrit 46.1 % (35.3-44.9); Hemoglobin 14.8 g/dL (11.5-15.4); Lymphocytes % 16.5 %; Mean Corpuscular HGB Conc 32.1 g/dL (31.6-35.5); Mean Corpuscular Hemoglobin 31.4 pg (28.0-33.3); Mean Corpuscular Volume 97.9 fL (83.0-100.0); Mean Platelet Volume 8.9 fL (9.4-12.4); Monocytes # 0.3 K/mcL (0.0-1.3); Monocytes % 4.5 %; Neutrophils # 4.5 K/mcL (1.6-8.9); Platelet Count 126 K/mcL (140-400); Red Blood Count 4.71 M/mcL (3.82-4.97); Red Cell Distribution Width 12.4 % (11.5-14.5); White Blood Count 5.9 K/mcL (4.3-11.1)
[2020-05-26 01:52] LABS: INR 2.6
[2020-05-26 01:55] LABS: Activated Partial Thrombo Time 36.4 Seconds (26.0-36.0)
[2020-05-26 02:08] LABS: BUN/Creatinine Ratio 17 (6-26); Blood Urea Nitrogen 22 mg/dL (6-20); Carbon Dioxide 21 mEq/L (23-29); Chloride 110 mEq/L (98-107); Glucose 100 mg/dL (70-105); Osmolality,Calculated 289 (280-300); Potassium 3.9 mEq/L (3.5-5.1); Sodium 138 mEq/L (136-145); eGFR For African Americans 52 (> 60); eGFR For Non-African Americans 43 (> 60)
[2020-05-26 02:09] LABS: Troponin I < 0.03 ng/mL (< 0.04)
[2020-05-26] MEDS ORDERED: *HR* HYDROmorphone (PF) 1 MG/ML SYRINGE IVP STA (02:49)
[2020-05-26] MEDS ORDERED: Naloxone 0.4 MG/ML INJ IVP PRN (04:33)
[2020-05-26] MEDS ORDERED: Ondansetron 4 MG/2 ML VIAL IVP PRN (04:33)
[2020-05-26] MEDS: Potassium Citrate 10 MEQ TABLET.ER PO SCH (17:28)
[2020-05-26] MEDS: BuPROPion SR (12 HR) 150 MG TABLET PO SCH (17:28)
[2020-05-26] MEDS: traZODone 50 MG TABLET PO SCH (20:12)
[2020-05-26] MEDS: QUEtiapine Fumarate 100 MG TABLET PO SCH (20:12)
[2020-05-26] MEDS: Topiramate 25 MG TABLET PO SCH (20:13)
[2020-05-27 01:57] LABS: Hematocrit 40.1 % (35.3-44.9); Hemoglobin 13.3 g/dL (11.5-15.4); Mean Corpuscular HGB Conc 33.2 g/dL (31.6-35.5); Mean Corpuscular Hemoglobin 32.4 pg (28.0-33.3); Mean Corpuscular Volume 97.8 fL (83.0-100.0); Platelet Count 106 K/mcL (140-400); Red Cell Distribution Width 12.3 % (11.5-14.5); White Blood Count 5.1 K/mcL (4.3-11.1)
[2020-05-27 02:10] LABS: BUN/Creatinine Ratio 15 (6-26); Blood Urea Nitrogen 15 mg/dL (6-20); Calcium 9.6 mg/dL (8.6-10.3); Carbon Dioxide 22 mEq/L (23-29); Chloride 103 mEq/L (98-107); Glucose 98 mg/dL (70-105); Osmolality,Calculated 277 (280-300); Potassium 3.9 mEq/L (3.5-5.1); Sodium 133 mEq/L (136-145); eGFR For African Americans > 60 (> 60); eGFR For Non-African Americans 55 (> 60)
[2020-05-27] MEDS: Potassium Citrate 10 MEQ TABLET.ER PO SCH ×2 (08:37→18:18)
[2020-05-27] MEDS: Cholecalciferol (D-3) 1,000 UNIT (25MCG) TABLET PO SCH (08:37)
[2020-05-27] MEDS: BuPROPion SR (12 HR) 150 MG TABLET PO SCH ×2 (08:37→18:17)
[2020-05-27] MEDS: Aspirin Enteric Coated 81 MG Tablet PO SCH (08:37)
[2020-05-27] MEDS: FLUoxetine 20 MG CAPSULE PO SCH (08:38)
[2020-05-27] MEDS: Topiramate 25 MG TABLET PO SCH ×2 (08:38→21:38)
[2020-05-27 10:20] LABS: Bilirubin,Urine Negative (Negative); Blood,Urine Large (Negative); Clarity,Urine Turbid (Clear); Color,Urine Light-Orange (Yellow); Glucose,Urine (UA) Normal (Normal); Ketones,Urine 10 mg/dL (Negative); Leukocyte Esterase,Urine Trace (Negative); Mucus,Urine Few per lpf (None-Few); Nitrite,Urine Negative (Negative); Protein,Urine 30 mg/dL (Neg-Trace); RBC,Urine TNTC per hpf (0-3); Specific Gravity,Urine 1.019 (1.010-1.025); Urobilinogen,Urine Normal (Normal); WBC,Urine 50-100 per hpf (0-3)
[2020-05-27] MEDS: cefTRIAXone 1,000 MG in Water for inj. (sterile) 10 ML IVP SCH (12:02)
[2020-05-27 13:42] LABS: INR 2.9; Prothrombin Time 32.2 Seconds (9.4-12.1)
[2020-05-27] MEDS ORDERED: NON-FORMULARY MEDICATION 1 EACH EACH (Alendronate Sodium [Fosamax] 70 MG) PO SCH (16:29)
[2020-05-27] MEDS ORDERED: Warfarin perPT PO PRN (18:00)
[2020-05-27 19:11] LABS: Basophils % 0.4 %; Hemoglobin 13.2 g/dL (11.5-15.4); Mean Platelet Volume 8.8 fL (9.4-12.4); Red Cell Distribution Width 12.2 % (11.5-14.5)
[2020-05-27 19:12] LABS: Eosinophils # 0.1 K/mcL (0.0-0.6); Eosinophils % 1.4 %; Hematocrit 40.4 % (35.3-44.9); Immature Granulocytes % 1.2 % (0-4); Lymphocytes % 19.6 %; Mean Corpuscular HGB Conc 32.7 g/dL (31.6-35.5); Mean Corpuscular Hemoglobin 31.8 pg (28.0-33.3); Mean Corpuscular Volume 97.3 fL (83.0-100.0); Monocytes # 0.5 K/mcL (0.0-1.3); Monocytes % 11.2 %; Neutrophils # 3.2 K/mcL (1.6-8.9); Platelet Count 106 K/mcL (140-400); Red Blood Count 4.15 M/mcL (3.82-4.97); Segmented Neutrophils % 66.2 %; White Blood Count 4.8 K/mcL (4.3-11.1)
[2020-05-27 19:15] LABS: Lymphocytes # 0.9 K/mcL (0.6-4.6)
[2020-05-27] MEDS: traZODone 50 MG TABLET PO SCH (22:51)
[2020-05-27] MEDS: QUEtiapine Fumarate 100 MG TABLET PO SCH (22:51)
[2020-05-28 01:51] LABS: Hematocrit 39.8 % (35.3-44.9); Hemoglobin 12.9 g/dL (11.5-15.4); Mean Corpuscular HGB Conc 32.4 g/dL (31.6-35.5); Mean Corpuscular Hemoglobin 31.5 pg (28.0-33.3); Mean Corpuscular Volume 97.1 fL (83.0-100.0); Platelet Count 102 K/mcL (140-400); Red Cell Distribution Width 12.1 % (11.5-14.5); White Blood Count 5.2 K/mcL (4.3-11.1)
[2020-05-28 02:04] LABS: INR 2.6; Prothrombin Time 29.1 Seconds (9.4-12.1)
[2020-05-28 02:18] LABS: BUN/Creatinine Ratio 15 (6-26); Blood Urea Nitrogen 13 mg/dL (6-20); Calcium 9.6 mg/dL (8.6-10.3); Carbon Dioxide 22 mEq/L (23-29); Chloride 105 mEq/L (98-107); Glucose 108 mg/dL (70-105); Osmolality,Calculated 281 (280-300); Potassium 3.6 mEq/L (3.5-5.1); Sodium 135 mEq/L (136-145); eGFR For African Americans > 60 (> 60); eGFR For Non-African Americans > 60 (> 60)
[2020-05-28] MEDS: Potassium Citrate 10 MEQ TABLET.ER PO SCH ×2 (09:38→19:08)
[2020-05-28] MEDS: cefTRIAXone 1,000 MG in Water for inj. (sterile) 10 ML IVP SCH (09:38)
[2020-05-28] MEDS: FLUoxetine 20 MG CAPSULE PO SCH (09:39)
[2020-05-28] MEDS: BuPROPion SR (12 HR) 150 MG TABLET PO SCH ×2 (09:39→19:09)
[2020-05-28] MEDS: Topiramate 25 MG TABLET PO SCH ×2 (09:39→21:14)
[2020-05-28] MEDS: Cholecalciferol (D-3) 1,000 UNIT (25MCG) TABLET PO SCH (09:39)
[2020-05-28] MEDS: Aspirin Enteric Coated 81 MG Tablet PO SCH (09:39)
[2020-05-28] MEDS ORDERED: Dexamethasone 4 MG/ML VIAL ONE (13:32)
[2020-05-28] MEDS ORDERED: *HR* Propofol 200 MG/20 ML VIAL IVP ONE (13:32)
[2020-05-28] MEDS ORDERED: Lidocaine HCL 4 ML Topical Solution (Laryng-O-Jet Kit Sterile Pak) TP ONE (13:32)
[2020-05-28] MEDS ORDERED: Ondansetron 4 MG/2 ML VIAL ONE (13:32)
[2020-05-28] MEDS ORDERED: Lidocaine -MPF 2% 2 ML VIAL ONE (13:32)
[2020-05-28] MEDS ORDERED: *HR* FentaNYL (PF) 100 MCG/2 ML VIAL ONE ×2 (13:32→16:11)
[2020-05-28] MEDS ORDERED: *HR* Rocuronium Bromide 50 MG/5 ML VIAL ONE (13:32)
[2020-05-28] MEDS ORDERED: *HR* Midazolam HCl 2 MG/2 ML VIAL ONE (13:32)
[2020-05-28] MEDS ORDERED: *HR* Succinylcholine 200 MG/10 ML VIAL IVP ONE (13:32)
[2020-05-28] MEDS ORDERED: Naloxone 0.4 MG/ML INJ IVP PRN ×2 (13:57→18:15)
[2020-05-28] MEDS ORDERED: Ondansetron 4 MG/2 ML VIAL IVP PRN (13:57)
[2020-05-28] MEDS ORDERED: *HR* HYDROmorphone PF 0.5 MG/0.5 ML SYRINGE IVP PRN (13:57)
[2020-05-28] MEDS ORDERED: *HR* FentaNYL (PF) 100 MCG/2 ML VIAL IVP PRN (13:57)
[2020-05-28] MEDS ORDERED: Nitroglycerin 0.4 MG TAB.SUBL SL PRN (13:57)
[2020-05-28] MEDS ORDERED: Isovue-300 50ML VIAL ONE (14:08)
[2020-05-28] MEDS ORDERED: Bacitracin 50,000 UNIT, Polymyxin B Sulfate 500,000 UNIT, Sodium Chloride IRRigation 1,... IR ONE (14:15)
[2020-05-28] MEDS ORDERED: ceFAZolin 2,000 MG in 0.9 % Sodium Chloride 100 ML IVPB ONE (15:09)
[2020-05-28] MEDS ORDERED: *HR* PHENYLEPHRINE 1,000 MCG/10 ML SYRINGE IVP ONE (15:40)
[2020-05-28] MEDS ORDERED: CeFAZolin 2 GM/120 ML BAG IVPB ONE (16:00)
[2020-05-28] MEDS ORDERED: Sugammadex Sodium 200 MG/2 ML VIAL IV ONE (16:51)
[2020-05-28] MEDS ORDERED: Acetaminophen 325 MG TABLET PO PRN (18:15)
[2020-05-28] MEDS ORDERED: *HR* HYDROcodone/Acet 5/325 mg TABLET PO PRN (18:15)
[2020-05-28] MEDS ORDERED: Ringers Solution, Lactated 1,000 ML IVC SCH (18:15)
[2020-05-28] MEDS: *HR* OxyCODONE Immed Rel 5 MG TABLET PO PRN (18:36)
[2020-05-28] MEDS: traZODone 50 MG TABLET PO SCH (21:14)
[2020-05-28] MEDS: QUEtiapine Fumarate 100 MG TABLET PO SCH (21:14)
[2020-05-28] MEDS: CeFAZolin 2 GM/120 ML BAG IVPB SCH (23:40)
[2020-05-29] MEDS: *HR* OxyCODONE Immed Rel 5 MG TABLET PO PRN ×4 (01:24→21:09)
[2020-05-29] MEDS: Topiramate 25 MG TABLET PO SCH ×2 (08:19→20:38)
[2020-05-29] MEDS: Potassium Citrate 10 MEQ TABLET.ER PO SCH ×2 (08:20→17:01)
[2020-05-29] MEDS: Aspirin 81 MG TAB.CHEW PO SCH (08:20)
[2020-05-29] MEDS: BuPROPion SR (12 HR) 150 MG TABLET PO SCH ×2 (08:20→17:01)
[2020-05-29] MEDS: FLUoxetine 20 MG CAPSULE PO SCH (08:21)
[2020-05-29] MEDS: CeFAZolin 2 GM/120 ML BAG IVPB SCH (08:21)
[2020-05-29] MEDS: Cholecalciferol (D-3) 1,000 UNIT (25MCG) TABLET PO SCH (08:21)
[2020-05-29 16:15] LABS: INR 1.7; Prothrombin Time 19.9 Seconds (9.4-12.1)
[2020-05-29] MEDS: traZODone 50 MG TABLET PO SCH (20:37)
[2020-05-29] MEDS: QUEtiapine Fumarate 100 MG TABLET PO SCH (20:38)
[2020-05-30] MEDS: *HR* OxyCODONE Immed Rel 5 MG TABLET PO PRN ×3 (02:33→19:49)
[2020-05-30 04:35] LABS: Hematocrit 32.1 % (35.3-44.9); Hemoglobin 10.5 g/dL (11.5-15.4); Mean Corpuscular HGB Conc 32.7 g/dL (31.6-35.5); Mean Corpuscular Hemoglobin 32.1 pg (28.0-33.3); Mean Corpuscular Volume 98.2 fL (83.0-100.0); Red Blood Count 3.27 M/mcL (3.82-4.97); Red Cell Distribution Width 12.5 % (11.5-14.5); White Blood Count 4.8 K/mcL (4.3-11.1)
[2020-05-30 04:43] LABS: INR 1.8; Prothrombin Time 20.1 Seconds (9.4-12.1)
[2020-05-30 04:50] LABS: BUN/Creatinine Ratio 14 (6-26); Blood Urea Nitrogen 11 mg/dL (6-20); Carbon Dioxide 22 mEq/L (23-29); Chloride 109 mEq/L (98-107); Glucose 103 mg/dL (70-105); Magnesium 1.7 mg/dL (1.6-2.6); Osmolality,Calculated 282 (280-300); Potassium 3.8 mEq/L (3.5-5.1); Sodium 136 mEq/L (136-145); eGFR For African Americans > 60 (> 60); eGFR For Non-African Americans > 60 (> 60)
[2020-05-30] MEDS: Cholecalciferol (D-3) 1,000 UNIT (25MCG) TABLET PO SCH (10:30)
[2020-05-30] MEDS: Topiramate 25 MG TABLET PO SCH (10:31)
[2020-05-30] MEDS: Aspirin 81 MG TAB.CHEW PO SCH (10:31)
[2020-05-30] MEDS: BuPROPion SR (12 HR) 150 MG TABLET PO SCH ×2 (10:31→19:48)
[2020-05-30] MEDS: FLUoxetine 20 MG CAPSULE PO SCH (10:31)
[2020-05-30] MEDS: Potassium Citrate 10 MEQ TABLET.ER PO SCH ×2 (10:32→19:49)
[2020-05-30 18:58] LABS: Adenovirus Not Detected (Not Detect); Bordetella Pertussis Not Detected (Not Detect); Chlamydophila pneumoniae Not Detected (Not Detect); Coronavirus 229E Not Detected (Not Detect); Coronavirus HKU1 Not Detected (Not Detect); Coronavirus NL63 Not Detected (Not Detect); Coronavirus OC43 Not Detected (Not Detect); Human Metapneumovirus Not Detected (Not Detect); Human Rhinovirus/Enterovirus Not Detected (Not Detect); Influenza A Subtype 2009 H1 Not Detected (Not Detect); Influenza B Not Detected (Not Detect); Mycoplasma pneumoniae Not Detected (Not Detect); Parainfluenza Virus 1 Not Detected (Not Detect); Parainfluenza Virus 2 Not Detected (Not Detect); Parainfluenza Virus 3 Not Detected (Not Detect); Parainfluenza Virus 4 Not Detected (Not Detect); Respiratory Syncytial Virus Not Detected (Not Detect); SARS-CoV-2 Not Detected (Not Detect)
[2020-05-30 19:43] VITALS: BP 130/83
[2020-05-30] MEDS ORDERED: FLU Vac QV 20-21 (6Month+)/PF 0.5 ML SYRINGE IM ONE (20:00)
== END 2020-05-30 20:30 | disposition other institution (70) | DRG 478 ==
LOC: EMEROOARM 00:26 → 3BNU 00:26 → SUATTDRO 04:24 → 3BNU 05:07 → 3NENU 05-27 19:36
PROVIDERS: ADMIT Student in an Organized Health Care Education/Training Program; ATTEND Internal Medicine